=== PATIENT | male | born 1945 | race Two or more races ===

== ENCOUNTER 2019-10-10 08:21 | Inpatient (IN) | payer OTHER ==
[2019-10-10] VITALS (23 sets, daily range): BP systolic 93–127; BP diastolic 46–69
[~2019-10-10] VITALS: Ht 175.3 cm; Wt 88.4 kg
[2019-10-10 09:04] LABS: Basophils # (auto) 0 uL; Basophils % (auto) 0.6 % (0.0-2.0); Eosinophils # (auto) 0.1 uL; Eosinophils % (auto) 0.9 % (0.0-7.0); Hematocrit 31.9 % (41.0-53.0); Hemoglobin 10.2 g/dL (13.5-17.5); Lymphocytes % (auto) 15.7 % (10.0-50.0); Mean Corpuscular Hemoglobin 30.7 pg (28.0-32.0); Mean Corpuscular Volume 95.8 fL (80.0-100.0); Monocytes # (auto) 0.7 uL; Monocytes % (auto) 11.3 % (0.0-12.0); Neutrophils # (auto) 4.5 uL; Neutrophils % (auto) 71.5 % (37.0-80.0); Nucleated Red Blood Cells % 0.1 %; Platelet Count (auto) 143 10^3/uL (140-450); Red Blood Cells 3.33 10^6/uL (4.5-5.90); Red Cell Distribution Width 16.4 % (11.8-14.3); White Blood Cell 6.2 10^3/uL (4.4-10.8)
[2019-10-10] MEDS ORDERED: PIPERACILLIN-TAZOB 3.375GM 100 ML IV ONE (09:15)
[2019-10-10 09:18] LABS: INR 1.3 (0.9-1.15); Partial Thromboplastin Time 33.9 sec (23.64-32.05)
[2019-10-10] MEDS: NOREPINEPHRINE 8 MG/250ML KIT 250 ML IV SCH ×2 (09:18→17:46)
[2019-10-10 09:22] LABS: Albumin 2.7 g/dL (3.4-5.0); Anion Gap 10 (5-15); Blood Urea Nitrogen 21 mg/dL (7-18); Calcium 8.3 mg/dL (8.5-10.1); Carbon Dioxide 26 mmol/L (21-32); Chloride 104 mmol/L (98-107); Glucose 199 mg/dL (74-106); Potassium 3.8 mmol/L (3.5-5.1); Sodium 140 mmol/L (136-145)
[2019-10-10 09:28] LABS: Alanine Aminotransferase 17 U/L (16-61); Alkaline Phosphatase 163 U/L (45-117); Aspartate Aminotransferase 17 U/L (15-37); BUN/Creatinine Ratio 5.4; Bilirubin, Total 0.8 mg/dL (0.2-1.0); GFR African American 20 mL/min; GFR Non-African American 16 mL/min
[2019-10-10] MEDS ORDERED: ONDANSETRON HCL 4 MG/2 ML VIAL ONE (09:46)
[2019-10-10] MEDS ORDERED: ONDANSETRON HCL 4 MG/2 ML VIAL IV ONE (10:00)
[2019-10-10 10:39] LABS: Lactic Acid w/Reflex 5.1 mmol/L (0.4-2.0)
[2019-10-10] MEDS ORDERED: MORPHINE SULF INJ 2 MG/ML SYRINGE 1ML IV PRN ×2 (11:30)
[2019-10-10] MEDS ORDERED: NITROGLYCERIN 0.4 MG SL TAB SL PRN (11:30)
[2019-10-10] MEDS ORDERED: ACETAMINOPHEN 500 MG TAB PO PRN (11:30)
[2019-10-10] MEDS ORDERED: ONDANSETRON HCL 4 MG/2 ML VIAL IV PRN (11:30)
[2019-10-10] MEDS ORDERED: SODIUM CHLORIDE 0.9% 250 ML IV ONE (11:30)
[2019-10-10] MEDS ORDERED: HYDROcodone-ACET 5/325MG TAB PO PRN (11:30)
[2019-10-10] MEDS: cefTRIAXone 1GM/50ML D5W 50 ML IV SCH (12:08)
[2019-10-10] MEDS ORDERED: NALOXONE HCL 0.4 MG/ML VIAL ONE (13:20)
[2019-10-10] MEDS ORDERED: ETOMIDATE (2MG/ML) 20ML VIAL IV ONE ×2 (13:28→14:00)
[2019-10-10] MEDS ORDERED: SUCCINYLCHOLINE CHLORIDE 20 MG/ML 10ML VIAL IV ONE (13:29)
[2019-10-10] MEDS ORDERED: MIDAZOLAM DRIP 50 mg/50mL 50 ML IV ONE (13:30)
[2019-10-10] MEDS ORDERED: NALOXONE HCL 0.4 MG/ML VIAL IV ONE (13:30)
[2019-10-10] MEDS ORDERED: IOHEXOL 350 MG/ML 100ML IJ ONE (13:46)
[2019-10-10] MEDS ORDERED: LIDOCAINE 2%HCL (LOCAL ANESTH.) INJ 20ML MDV ONE (13:46)
[2019-10-10] MEDS ORDERED: ATROPINE SULF 1 MG/10ml SYR ONE (13:48)
[2019-10-10] MEDS ORDERED: HEPARIN SODIUM (PORCINE) 5000 UNITS/ML 1ML VIAL ONE (13:49)
[2019-10-10] MEDS ORDERED: MIDAZOLAM HCL 5 MG/ML-1ML VIAL IV ONE (14:00)
--- NOTE | 2019-10-10 14:00 | NUR ---
Respiratory note: ABG UN ABLE TO BE OBTAINED. MULTIPLE TRIES. SURGICAL INSTRUMENT MAKER SALBINO AWARE.
[2019-10-10] MEDS ORDERED: PHENYLEPHRINE HCL 10 MG/ML VL ONE (14:11)
[2019-10-10] MEDS ORDERED: IODIXANOL 320MG/ML 100ML BTL IV ONE (14:14)
[2019-10-10] MEDS: MIDAZOLAM DRIP 50 mg/50mL 50 ML IV SCH ×3 (14:24→22:55)
[2019-10-10] MEDS ORDERED: SODIUM CHL 0.9% 0 ML ONE (15:21)
[2019-10-10] MEDS ORDERED: ANGIOMAX 250 MG VIAL IV ONE (15:21)
[2019-10-10] MEDS ORDERED: NOREPINEPHRINE 8 MG/250ML KIT 0 ML IV ONE (15:21)
[2019-10-10] MEDS ORDERED: VANCOMYCIN PER PHARMACY 0 MG IV SCH (16:15)
[2019-10-10] MEDS ORDERED: VANCOMYCIN 1GM/250ML 250 ML IV ONE ×3 (16:30→17:15)
[2019-10-10] MEDS ORDERED: CLOPIDOGREL BISULFATE 75 MG TAB PO ONE (17:45)
--- NOTE | 2019-10-10 17:55 | NUR ---
RECEIVED PT FROM CONSUMER EXPERIENCE CONSULTANT S/P RT/ LT HEART CATH FOR PERICARDIAL EFFUSION. PT HAD 200 ML DRAINED AND NOW HAS A ENRIQUE DRAIN. 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 RT GROIN HEART CATH ACCESS SITE BENIGN, SOFT TO THE TOUCH NO BRUISING, BLEEDING OR SWELLING. BOTH FEET ARE COLD TO THE THE TOUCH FEET ARE ASHEN IN COLOR PULSES ARE WEAK BUT PALPABLE. PT CURRENTLY ON THE VENTILATOR, HE WILL BE CPAP IN AM PER Cynthia ALBERTO' S INSTRUCTION. PT CURRENTLY ON VERSED AT 12 MG/HR AND LEVOPHED IS A 5 MCG/MIN BEING TITRATED OFF. VENT 8.0 ETT AT 23 CM AT LIP AC 14 TV 550 PEEP 5 100% FIO2 95 %
[2019-10-10] MEDS: SODIUM CHLORIDE 0.9% 1,000 ML IV SCH (19:03)
[2019-10-10 19:24] LABS: Basophils # (auto) 0 uL; Eosinophils # (auto) 0 uL; Lymphocytes # (auto) 0.9 uL; Monocytes # (auto) 0.7 uL; Monocytes % (auto) 5.7 % (0.0-12.0); Nucleated Red Blood Cells % 0.2 %
[2019-10-10 19:25] LABS: Basophils % (auto) 0.3 % (0.0-2.0); Eosinophils % (auto) 0.2 % (0.0-7.0); Hemoglobin 10.3 g/dL (13.5-17.5); Mean Corpuscular Hemoglobin 30.4 pg (28.0-32.0); Mean Corpuscular Volume 97.9 fL (80.0-100.0); Neutrophils # (auto) 10.6 uL; Neutrophils % (auto) 86.8 % (37.0-80.0); Platelet Count (auto) 127 10^3/uL (140-450); Red Blood Cells 3.38 10^6/uL (4.5-5.90); Red Cell Distribution Width 16.8 % (11.8-14.3); White Blood Cell 12.2 10^3/uL (4.4-10.8)
--- NOTE | 2019-10-10 20:00 | NUR ---
OPEN NOTES RECEIVED REPORT FROM ALVERTO NELSON. PATIENT IS SEDATED WITH IV VERSED. PUPILS BOTH SLUGGISHLY REACTIVE TO LIGHT. HYPOACTIVE COUGH AND GAG NOTED. INTUBATED ON AC MODE. PLAN FOR CPAP IN AM. WILL WEAN OFF SEDATION. VS STABLE. ON IV LEVOPHED AT 5MCG/MIN. WITH PERICARDIAL DRAIN -BULB TO SUCTION WITH SANGUINEOUS OUTPUT. ALL LIMBS COLD,PULSES PALPABLE ON UPPER LIMBS, LOWER LIMBS CHECKED WITH DOPPLER. COVERED WITH WARM BLANKET. FULL ASSESSMENT DONE- REFER INTERVENTIONS REPOSITIONED, ORAL CARE DONE.
[2019-10-10 20:24] LABS: Potassium 4.3 mmol/L (3.5-5.1)
[2019-10-10 20:44] LABS: Albumin 2.3 g/dL (3.4-5.0); Calcium 7.6 mg/dL (8.5-10.1); Total Protein 6.1 g/dL (6.4-8.2)
--- NOTE | 2019-10-10 21:00 | NUR ---
FAMILY AT BEDSIDE
[2019-10-10] MEDS ORDERED: METO25TA5 PO (21:20)
[2019-10-10] MEDS ORDERED: CINA30TA2 PO (21:20)
[2019-10-10] MEDS ORDERED: NIFE1TAB31 PO (21:20)
[2019-10-10] MEDS ORDERED: FERR-7 PO (21:20)
[2019-10-10] MEDS ORDERED: ALLO100T PO (21:20)
[2019-10-10] MEDS ORDERED: CLOP75TA28 PO (21:20)
[2019-10-10] MEDS ORDERED: ATO40T PO (21:20)
[2019-10-10] MEDS ORDERED: AMIO100T3 OR (21:30)
[2019-10-10] MEDS ORDERED: ASPI-404 PO (21:30)
[2019-10-10] MEDS ORDERED: PANT40TA2 PO (21:58)
[2019-10-10 23:06] LABS: Phosphorus 5.5 mg/dL (2.5-4.90)
--- NOTE | 2019-10-10 23:07 | NUR ---
PATIENT STARTED TO MOVE UPPER LIMBS UP MITTENS APPLIED
[2019-10-10 23:15] LABS: CRP High Sensitivity 10.6 mg/dL (< 0.3)
[2019-10-11] VITALS (103 sets, daily range): BP systolic 73–143; BP diastolic 29–94
--- NOTE | 2019-10-11 05:00 | NUR ---
Patient bathe/linen change Patient cleaned with CHG wipes. Skin integrity assessed for any changes. Linens changed. Patient repositioned for comfort.
[2019-10-11 05:08] LABS: Basophils # (auto) 0.1 uL; Basophils % (auto) 0.6 % (0.0-2.0); Eosinophils # (auto) 0.1 uL; Eosinophils % (auto) 1.3 % (0.0-7.0); Hematocrit 27.6 % (41.0-53.0); Hemoglobin 8.9 g/dL (13.5-17.5); Lymphocytes # (auto) 0.6 uL; Lymphocytes % (auto) 7.8 % (10.0-50.0); Mean Corpuscular Hemoglobin 31.1 pg (28.0-32.0); Mean Corpuscular Hgb Conc. 32.3 g/dL (32.0-36.0); Mean Corpuscular Volume 96.2 fL (80.0-100.0); Monocytes # (auto) 0.2 uL; Monocytes % (auto) 2.5 % (0.0-12.0); Neutrophils # (auto) 7.1 uL; Neutrophils % (auto) 87.8 % (37.0-80.0); Nucleated Red Blood Cells % 0.3 %; Platelet Count (auto) 103 10^3/uL (140-450); Red Blood Cells 2.87 10^6/uL (4.5-5.90); Red Cell Distribution Width 16.8 % (11.8-14.3); White Blood Cell 8.1 10^3/uL (4.4-10.8)
[2019-10-11 05:26] LABS: INR 1.98 (0.9-1.15); Partial Thromboplastin Time 37.4 sec (23.64-32.05)
[2019-10-11 05:43] LABS: BUN/Creatinine Ratio 6.6; Calcium 6.3 mg/dL (8.5-10.1); Potassium 3.3 mmol/L (3.5-5.1)
--- NOTE | 2019-10-11 06:29 | NUR ---
SCOTT CALLED BACK TALKED TO DR. BEVERLY.INFORMED OF LAB RESULTS TELEPHONE ORDER RECEIVED AND VERIFIED
[2019-10-11] MEDS ORDERED: CALCIUM GLUC 4.65meq/50ml D5AE 50 ML IV ONE (06:30)
[2019-10-11] MEDS ORDERED: SODIUM CHL 0.9% 1000 ML BAG XX ONE (07:00)
--- NOTE | 2019-10-11 07:25 | NUR ---
OPENING NOTE Initial assessment complete. Report received from Tracey DEL TORO, care assumed. Patient is intubated. Sedation has been weaned off for cpap trial. Patient not opening eyes or moving extremities at this time. No s/s of pain or distress at this time. Afebrile. Vital signs stable. Pulses palpable bilaterally, SCD's on bilateral lower extremities. Lungs clear anteriorly, oxygen saturation 100%. Pericardial drain patent, dressing CDI. See skin/wound assessment. Bed locked in lowest position, alarms in place. Will continue to monitor.
[2019-10-11] MEDS: cefTRIAXone 1GM/50ML D5W 50 ML IV SCH (08:34)
[2019-10-11] MEDS ORDERED: CALCITRIOL 1 MCG/ML AMPULE IV SCH (10:00)
--- NOTE | 2019-10-11 10:15 | NUR ---
VISITOR Patient and son at bedside. Family updated on patient status and plan of care.
[2019-10-11] MEDS: FAMOTIDINE 20 MG TAB PO SCH (10:27)
[2019-10-11] MEDS: CLOPIDOGREL BISULFATE 75 MG TAB PO SCH (10:28)
[2019-10-11] MEDS: ASPirin 81 mg TAB PO SCH (10:28)
--- NOTE | 2019-10-11 10:50 | NUR ---
MD VISIT:PCP at bedside assessing patient and speaking with regarding plan of care. All questions and concerns addressed. Awaiting for patient to wake up and follow commands before attempting cpap trial today.
--- NOTE | 2019-10-11 11:03 | NUR ---
[facility] it infrastructure manager called to confirm orders. Clarifying that patient is on the schedule for treatment today.
[2019-10-11] MEDS ORDERED: POTASSIUM CHL 20MEQ/100ML 100 ML IV SCH (11:30)
--- NOTE | 2019-10-11 11:33 | NUR ---
MD VISIT: NEPHROLOGY rounding on patient. MD reviewing medical chart. Electrolyte replacement orders received.
[2019-10-11] MEDS ORDERED: POTASSIUM CHLORIDE 40 MEQ, LIDOCAINE 1% (LOCAL ANESTH.) 4 ML in SODIUM CHL 0.9% 100 ML IV ONE (11:45)
[2019-10-11] MEDS: SODIUM CHLORIDE 0.9% 1,000 ML IV SCH (13:30)
[2019-10-11] MEDS ORDERED: VANCOMYCIN 1GM/250ML 250 ML IV ONE ×2 (14:00→18:30)
[2019-10-11] MEDS: PROPOFOL 100 ML IV SCH (14:48)
[2019-10-11] MEDS: fentaNYL Drip 2500mCg/250mlNS 250 ML IV SCH (14:48)
--- NOTE | 2019-10-11 15:40 | NUR ---
DIALYSIS Dialysis nurse at bedside. Vitals stable. Patient on levophed drip at this time.
--- NOTE | 2019-10-11 15:50 | NUR ---
MD VISIT: PCP Dr. Starks at bedside assessing patient. MD reviewing medical chart. New orders received. spoke with regarding plan of care.
[2019-10-11] MEDS ORDERED: PHYTONADIONE (VIT K)10 MG/ML 1ML VIAL SUBCUT ONE (16:00)
[2019-10-11] MEDS ORDERED: phytonadione 10 MG in SODIUM CHL 0.9% 50 ML IV ONE (16:15)
--- NOTE | 2019-10-11 16:21 | NUR ---
MD VISIT: CARDIOLOGY at bedside assessing patient, assessing pericardial drainage output. No new orders at this time. MD wants to monitor output from drain over the next couple of days.
--- NOTE | 2019-10-11 17:15 | NUR ---
PT IS RECEIVING DIALYSIS. ATTEMPT P.T. TOMORROW.
--- NOTE | 2019-10-11 18:05 | NUR ---
Respiratory note: RECEIVED PT ON VENT V4, VENT CONNECTED TO RED OUTLET AND O2 SOURCE. ALARMS ARE SET AND AUDIBLE TO NURSE STATION,AMBU BAG AND MASK AT BEDSIDE. BS ARE FINE COURSE SXD FOR SCANT JOYCE/BROWN TINGE. PT CURRENTLY ON DIALYSIS. RT NAME AND PAGER ASSIGNMENT WRITTEN ON PTS ROOM BOARD. WILL CONTINUE TO MONITOR Q2H AND PRN.
--- NOTE | 2019-10-11 18:40 | NUR ---
DIALYSIS DIALYSIS COMPLETE 1.5 L REMOVED. Right upper arm access continuing to bleed. Surgical snow, gauze, and manual pressure held for 5 minutes. Bleeding subsided. Pressure dressing applied. Will continue to monitor.
[2019-10-11] MEDS: NOREPINEPHRINE 8 MG/250ML KIT 250 ML IV SCH (18:41)
--- NOTE | 2019-10-11 19:30 | NUR ---
CLOSING NOTE Report given to Hailey DEL TORO, care endorsed.
--- NOTE | 2019-10-11 19:31 | NUR ---
PHARMACY Spoke to pharmacist earlier regarding change and addition of Zosyn and Fluconazole per 's request. Pharmacist wanted to research more into medications. Did not receive call back. Attempt to reach pharmacist but no answer. Will endorse to oven roaster.
--- NOTE | 2019-10-11 20:00 | NUR ---
PHARMACY DID NOT CALL BACK. PATIENT ADMITTED ON 10/10/2019. WAS HYPOTENSIVE. CAME FROM DIALYSIS UNIT. AT 1900 THEY HAD JUST TAKEN HIM OFF DIALYSIS. REMOVED 1500 CC. 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 TROUBLE WITH BLEEDING . SNOW APPLIED TO SITE, PRESSURE HELD, 4X4 DRESSING OVER IT, SECURED WITH TAPE. MARGOT. HAS WHITE RINGS AROUND THE PERIPHERY OF EACH EYE. ORALLY INTUBATED. ETT TO VENTILATOR. ORAL NGT CLAMPED, NO RESIDUAL. ORAL CARE DONE. SUCTIONED THE ETT FOR A SMALL AMOUNT OF WHITE SECRETIONS. ABDOMEN SOFT. HAS A PIGTAIL DRAIN FROM AN INSERTION POINT ON HIS CHEST. NO DRNG. SITE HAS A BIOPATCH AND CLEAR DRESSING OVER IT. BILATERALL MITTENS ON. REPOSITIONED TO LEFT SIDE AT 1930. BUTTOCKS/SACRAL AREA SHOWS NO BREAKDOWN OR REDNESS. SCDS ON. NSR, BORDERLINE AV BLOCK WITH BBB.
--- NOTE | 2019-10-11 20:03 | NUR ---
Respiratory note: At bedside for routine vent check. HME saturated, changed at this time. No changes made at this time. Will continue to monitor q2. ALVERTO Gibbons at bedside.
[2019-10-11] MEDS ORDERED: EPOETIN ALFA 10,000 UNIT/1 ML VIAL SC ONE (21:00)
--- NOTE | 2019-10-11 21:50 | NUR ---
Respiratory note: At bedside for routine vent check. Will continue to monitor q2h.
[2019-10-12] VITALS (102 sets, daily range): BP systolic 74–157; BP diastolic 8–87
--- NOTE | 2019-10-12 | NUR ---
NO VENTILATOR CHANGES. LUNGS CLEAR. NSR WITH BORDERLINE 1ST DEGREE AV BLOCK AND BBB. SUCTIONING A GOOD MODERATE AMOUNT OF THICK WHITE SECRETIONS. LARGE AMOUNT OF CLEAR ORAL SECRETIONS. ABDOMEN SOFT. NO NGT RESIDUAL. BILATERAL MITTENS ON. HAS NOT WOKEN UP YET. WITHDRAWS TO PAIN. PREVENTATIVE OPTIFOAM PLACED ON COCCYX. 2 PERIPHERAL IVS SHOW NO REDNESS OR SWELLING.
--- NOTE | 2019-10-12 00:04 | NUR ---
Respiratory note: At bedside for routine vent check. Bs are fine course sxd via ett for no return. will continue to monitor q2h.
--- NOTE | 2019-10-12 02:00 | NUR ---
NO CHANGE IN STATUS. VSS. LEVOPHED CONTINUES. LABILE BLOOD PRESSURE. LUNGS CLEAR. SUCTIONED A LARGE AMOUNT OF CLEAR SECRETIONS FROM THE ORAL CAVITY. WHITE SECRETIONS FROM THE ETT. ANURIC STILL. ALL PULSES PALPABLE. TIPS OF FEET COOL. DRY SKIN.
--- NOTE | 2019-10-12 02:35 | NUR ---
Respiratory note: At bedside for routine vent check. No vent changes made at this time. Will continue to monitor q2h.
--- NOTE | 2019-10-12 03:31 | NUR ---
AM LABS DRAWN
[2019-10-12 03:54] LABS: Basophils # (auto) 0.1 uL; Basophils % (auto) 1.1 % (0.0-2.0); Eosinophils # (auto) 0.1 uL; Eosinophils % (auto) 1.6 % (0.0-7.0); Hematocrit 31.5 % (41.0-53.0); Hemoglobin 10.2 g/dL (13.5-17.5); Lymphocytes # (auto) 0.5 uL; Mean Corpuscular Hemoglobin 30.4 pg (28.0-32.0); Mean Corpuscular Hgb Conc. 32.6 g/dL (32.0-36.0); Mean Corpuscular Volume 93.5 fL (80.0-100.0); Monocytes # (auto) 0.3 uL; Monocytes % (auto) 4.4 % (0.0-12.0); Neutrophils # (auto) 4.9 uL; Neutrophils % (auto) 84.9 % (37.0-80.0); Nucleated Red Blood Cells % 0.2 %; Platelet Count (auto) 140 10^3/uL (140-450); Red Blood Cells 3.37 10^6/uL (4.5-5.90); Red Cell Distribution Width 16.5 % (11.8-14.3); White Blood Cell 5.8 10^3/uL (4.4-10.8)
--- NOTE | 2019-10-12 04:08 | NUR ---
Respiratory note: END OF SHIFT VENT CHECK. NO CHANGES MADE AT THIS TIME. PTS CURRENT TEMP IS 98.2F. WILL HAVE DAY SHIFT RT CONTINUE POC.
[2019-10-12 04:09] LABS: INR 1.68 (0.9-1.15)
[2019-10-12 04:11] LABS: Albumin 2.2 g/dL (3.4-5.0); Calcium 8.2 mg/dL (8.5-10.1); Potassium 3.8 mmol/L (3.5-5.1)
[2019-10-12 04:20] LABS: BUN/Creatinine Ratio 5.4; Bilirubin, Total 1.2 mg/dL (0.2-1.0); Total Protein 5.8 g/dL (6.4-8.2)
--- NOTE | 2019-10-12 06:35 | NUR ---
Respiratory note: RECEIVED PATIENT ON V4 V200 VENT ORALLY INTUBATED WITH AN 8.0 ETT SECURED VIA ELIAS AT THE 24CM MARKING AT THE LIP, NAD MECHANICALLY VENTILATED WITH THE CHARTED SETTINGS. SPO2 98%, LUNG SOUNDS CLEAR/DIM T/O, SCANT AMOUNT OF LIGHT JOYCE SECRETIONS WHEN SUCTIONED. SKIN IS WARM/DRY TO THE TOUCH AND IS INTACT NEAR ELIAS SITE. THERE IS AN OGT IN PLACE AND SECURED TO THE ETT, A LARGE DRESSING PLACED ON THE RIGHT BICEP COVERING DIALYSIS FISTULA. NO ADVANCE ACCESS LINES NOTED. NON PITTING EDEMA NOTED IN BILATERAL UPPER EXTREMITIES, NO EDEMA NOTED IN LOWER EXTREMITIES. PATIENT IS UNRESPONSIVE TO VERBAL STIMULI BUT DOES RESPOND TO TACTILE STIMULI AND IS OFF SEDATION. HE IS RESTING COMFORTABLY AND TOLERATING VENT WELL, NO CHANGES MADE. VENT PLUGGED INTO RED OUTLET AND ALL ALARMS ARE SET AND AUDIBLE. VENT PLUGGED INTO RED OUTLET AND ALL ALARMS ARE SET AND AUDIBLE. WILL CONTINUE TO ASSESS PATIENT WELL VENTILATOR FUNCTION.
[2019-10-12] MEDS: SODIUM CHLORIDE 0.9% 1,000 ML IV SCH (07:47)
[2019-10-12] MEDS: cefTRIAXone 1GM/50ML D5W 50 ML IV SCH (09:25)
[2019-10-12] MEDS: ASPirin 81 mg TAB PO SCH (09:25)
[2019-10-12] MEDS: FAMOTIDINE 20 MG TAB PO SCH (09:25)
[2019-10-12] MEDS: CLOPIDOGREL BISULFATE 75 MG TAB PO SCH (09:25)
[2019-10-12] MEDS: DexMEDEtomidine 400 MCG in D5W 5% 96 ML IV SCH (09:26)
--- NOTE | 2019-10-12 09:35 | NUR ---
Respiratory note: AM CXR ASSESSED AND IT SHOWS ETT IN SATISFACTORY POSITION SITTING APPROX 4.8CM ABOVE THE YOLY. NO INDICATION TO ADJUST TUBE AT THIS TIME.
--- NOTE | 2019-10-12 09:35 | NUR ---
PARTIAL LINEN CHANGE PERFORMED AT THIS TIME
--- NOTE | 2019-10-12 09:59 | NUR ---
FAMILY AND SON AT BEDSIDE. UPDATED ON PATIENT STATUS. ALL QUESTIONS AND CONCERNS ADDRESSED AT THIS TIME
--- NOTE | 2019-10-12 11:00 | NUR ---
WOUND CARE NOTE: IN TO SEE PATIENT AT THIS TIME PER WOUND CARE CONSULT REQUEST. PATIENT ADMITTED TO [facility] WITH DIAGNOSIS OF SEPSIS, PNA. CURRENT JUAN SCORE IS 12. PATIENT IS INTUBATED, SEDATED. HE HAS TWO SMALL OPEN BLISTERS NOTED TO LEFT FLANK. APPLIED THERAHONEY, OPTIFOAM GENTLE DRESSING TO WOUNDS. WOUND PHOTO TAKEN AT THIS TIME FOR REFERENCE. PATIENT'S BONY PROMINENCES ARE PINK, BLANCHABLE. HE HAS OPTIFOAM GENTLE SACRAL DRESSING APPLIED PREVENTATIVE. PATIENT REPOSITIONED ONTO RIGHT SIDE, REDISTRIBUTING PRESSURE POINTS WITH PILLOWS. RECOMMEND: FREQUENT TURN SCHEDULE Q 2 HOURS, PRN CONDITION PERMITS, WITH PRESSURE REDISTRIBUTION USING PILLOWS/WEDGES, BID/PRN APPLICATION WITH MOISTURE BARRIER CREAM, OPTIFOAM GENTLE SACRAL DRESSING PREVENTATIVE, Q 3 DAY, PRN DRESSING CHANGE TO WOUNDS ON LEFT FLANK, SKIN/WOUND CARE PLAN, CONTINUED MONITORING BY WOUND CARE TEAM. Addendum: 10/12/19 at 1317 by Malathi Casillas RN Amended: Links added.
--- NOTE | 2019-10-12 11:04 | NUR ---
DR. PAYNE AT BEDSIDE
--- NOTE | 2019-10-12 11:05 | NUR ---
DR. BREWSTER AT BEDSIDE
--- NOTE | 2019-10-12 11:29 | NUR ---
ULTRASOUND AT BEDSIDE
--- NOTE | 2019-10-12 13:46 | NUR ---
Nutrition Assessment Notes Est energy needs: 2223-1804 kcals (20-23 kcals/kgBW) Est protein needs: 104-114 g/day (1.1-1.2 g/kgBW) Will continue to monitor and reassess prn Addendum: 10/12/19 at [address] Amended: Links added.
--- NOTE | 2019-10-12 13:48 | NUR ---
DR. SANFORD AT BEDSIDE TO PLACE FEMORAL CENTRAL LINE
[2019-10-12] MEDS: fentaNYL Drip 2500mCg/250mlNS 250 ML IV SCH (14:48)
[2019-10-12] MEDS: PROPOFOL 100 ML IV SCH (14:48)
--- NOTE | 2019-10-12 16:26 | NUR ---
FAMILY BACK AT BEDSIDE. UPDATED ON PATIENT STATUS
--- NOTE | 2019-10-12 16:56 | NUR ---
PARTIAL LINEN CHANGE PERFORMED AT THIS TIME
--- NOTE | 2019-10-12 16:57 | NUR ---
MEDICAL RESTRAINTS SOFT RESTRAINTS APPLIED TO UPPER LEFT AND UPPER RIGHT EXTREMITIES. PATIENT ON MECHANICAL VENTILATOR, NO SEDATION PER MD SO PATIENT CAN HAVE CPAP TRIAL. PATIENT TRASHING IN BED, ROLLING FROM SIDE TO SIDE AND REACHING FOR ET TUBE. PATIENT DOES NOT FOLLOW SIMPLE COMMANDS AT THIS TIME. TAHIR AT BEDSIDE AWARE SOFT RESTRAINTS AND NEED FOR PATIENT SAFETY. ALL QUESTIONS AND CONCERNS ADDRESSED AT THIS TIME
--- NOTE | 2019-10-12 20:00 | NUR ---
OPEN ASSUMED CARE OF MALE PT ORALLY INTUBATED. PT ON PRECEDEX GTT 0.1 MCG/KG/HR. PT ATTEMPTS TO REACH ETT ATTEMPT TO SIT FORWARD OUT OF THE BED DURING ORAL CARE AND TURNING. PT NOT ABLE TO FOLLOW COMMANDS AT THIS TIME. WILL INCREASE PRECEDEX GTT (SEE IV SPREADSHEET). PT ON MINAL SOFT WRIST RESTRAINTS. CIRCULATION WNL SKIN INTACT. PT SR ON SHEEP HERDER WITH 1 DEGREE AV BLOCK AND BBB. LEVOPHED GTT IN PLACE TO R. FEMORAL TLC AT 5 MCG/MIN. NS INFUSING AT 50 L/HR. OGT IN PLACE CLAMPED. PLACEMENT VERIFIED. ARIADNE FISTULA PRESENT WITH POSITIVE BRUIT AND THRILL. L. AC [address] S/L. PERICARDIAL DRAIN IN PLACE WITH INSERTION SITE AT ANT. UPPER ABDOMEN. DRAINING SML AMOUNT OF SEROUS SANGUINEOUS DRAINAGE INTO ENRIQUE BULB. 2 SML NON INTACT BLISTERS OBSERVED TO L. FLANK AREA WITH CDI OPTIFOAM NON ADHERENT DRESSING. NO INDICATION OF PAIN OBSERVED. BED IN LOWEST LOCKED POSITION. HOB ELEVATED. SIDE RAILS UP X 2. PT IN FULL VIEW OF RN STATION. WILL CONTINUE TO MONITOR.
--- NOTE | 2019-10-12 22:00 | NUR ---
CIRCULATION CHECK/RESTRAINTS MINAL SOFT WRIST RESTRAINTS LOOSENED TO PROVIDE CIRCULATION. PT STILL ATTEMPTING TO REACH TOWARD ETT. RESTRAINTS RE-SECURED. PT STILL UNABLE TO FOLLOW COMMANDS.
[2019-10-13] VITALS (102 sets, daily range): BP systolic 81–174; BP diastolic 41–78
[2019-10-13 04:29] LABS: Basophils # (auto) 0.1 uL; Basophils % (auto) 1.3 % (0.0-2.0); Eosinophils # (auto) 0.1 uL; Eosinophils % (auto) 3.6 % (0.0-7.0); Hematocrit 28.8 % (41.0-53.0); Hemoglobin 9.4 g/dL (13.5-17.5); Lymphocytes # (auto) 0.5 uL; Lymphocytes % (auto) 13.2 % (10.0-50.0); Mean Corpuscular Hemoglobin 30.5 pg (28.0-32.0); Mean Corpuscular Hgb Conc. 32.7 g/dL (32.0-36.0); Mean Corpuscular Volume 93.3 fL (80.0-100.0); Monocytes # (auto) 0.3 uL; Monocytes % (auto) 6.6 % (0.0-12.0); Neutrophils % (auto) 75.3 % (37.0-80.0); Nucleated Red Blood Cells % 0.2 %; Platelet Count (auto) 113 10^3/uL (140-450); Red Blood Cells 3.08 10^6/uL (4.5-5.90); Red Cell Distribution Width 16.1 % (11.8-14.3)
[2019-10-13 04:46] LABS: Albumin 2.1 g/dL (3.4-5.0); Calcium 8.3 mg/dL (8.5-10.1); Potassium 3.9 mmol/L (3.5-5.1)
[2019-10-13 04:56] LABS: BUN/Creatinine Ratio 6.2; Bilirubin, Total 1.3 mg/dL (0.2-1.0); Total Protein 5.6 g/dL (6.4-8.2)
[2019-10-13] MEDS: SODIUM CHLORIDE 0.9% 1,000 ML IV SCH (05:30)
[2019-10-13] MEDS: DexMEDEtomidine 400 MCG in D5W 5% 96 ML IV SCH (05:42)
--- NOTE | 2019-10-13 06:34 | NUR ---
VAN RN CALLED UNIT See DEL TORO FROM [facility] CALLED. STATES SHE WILL BE ON UNIT TO PROVIDE DIALYSIS AT APPROX 09:30
--- NOTE | 2019-10-13 08:01 | NUR ---
TEMPERATURE 94.6 RECTALLY HEATING MEASURES APPLIED
--- NOTE | 2019-10-13 08:15 | NUR ---
Respiratory note: PT NOT AWAKE ENOUGH FOR CPAP TRIAL.
[2019-10-13] MEDS: cefTRIAXone 1GM/50ML D5W 50 ML IV SCH (08:23)
[2019-10-13] MEDS: NOREPINEPHRINE 8 MG/250ML KIT 250 ML IV SCH (09:02)
--- NOTE | 2019-10-13 09:05 | NUR ---
ECHO AT BEDSIDE
[2019-10-13] MEDS: CALCITRIOL 1 MCG/ML AMPULE IV SCH (09:23)
[2019-10-13] MEDS: FAMOTIDINE 20 MG TAB PO SCH (09:23)
[2019-10-13] MEDS: CLOPIDOGREL BISULFATE 75 MG TAB PO SCH (09:23)
[2019-10-13] MEDS: ASPirin 81 mg TAB PO SCH (09:23)
--- NOTE | 2019-10-13 10:03 | NUR ---
FAMILY AND BROTHER AT BEDSIDE. UPDATED ON PATIENT STATUS. ALL QUESTIONS AND CONCERNS ADDRESSED AT THIS TIME
--- NOTE | 2019-10-13 10:13 | NUR ---
DR. BREWSTER AT BEDSIDE SPOKE WITH WITH IN GREAT DETAIL REGARDING PATIENT STATUS AND PLAN OF CARE. ALL QUESTIONS AND CONCERNS ADDRESSED AT THIS TIME
--- NOTE | 2019-10-13 10:44 | NUR ---
DR. PAYNE AT BEDSIDE
--- NOTE | 2019-10-13 13:01 | NUR ---
DR. ROJAS AT BEDSIDE
--- NOTE | 2019-10-13 13:18 | NUR ---
TEMP 100.0 FAN TURNED ON TO COOL PATIENT
--- NOTE | 2019-10-13 13:50 | NUR ---
RESTRAINTS REMOVED PATIENT ON SEDATION FOR COMFORT. WRIST SITES BENIGN, MITTENS APPLIED FOR SAFETY
[2019-10-13] MEDS: fentaNYL Drip 2500mCg/250mlNS 250 ML IV SCH (14:48)
[2019-10-13] MEDS: PROPOFOL 100 ML IV SCH ×2 (14:48→22:54)
[2019-10-13] MEDS ORDERED: VANCOMYCIN 1GM/250ML 250 ML IV ONE (16:00)
[2019-10-13] MEDS ORDERED: Nepro With Carb Steady 1 Liter Bottle GT SCH (16:30)
--- NOTE | 2019-10-13 20:00 | NUR ---
OPEN ASSUMED CARE OF MALE PT ORALLY INTUBATED. PT ON PROPOFOL GTT 20 MCG/KG/MIN. PT GRIMACES TO TACTILE STIMULI, WITHDRAWS TO PAIN. OTHERWISE NON RESPONSIVE. PT SINUS BRADYCARDIA ON SUPERVISOR GROVE WITH 1 DEGREE AV BLOCK AND BBB. LEVOPHED GTT IN PLACE TO R. FEMORAL TLC AT 3 MCG/MIN. NS INFUSING AT 50 L/HR. OGT IN PLACE WITH NEPHRO FEEDING INFUSING AT 30 ML/HR. 10 ML RESIDUAL ASPIRATED/RETURNED. PLACEMENT VERIFIED. ARIADNE FISTULA PRESENT WITH POSITIVE BRUIT AND THRILL. L. AC [address] S/L. PERICARDIAL DRAIN IN PLACE WITH INSERTION SITE AT ANT. UPPER ABDOMEN. DRAINING SML AMOUNT OF SEROUS SANGUINEOUS DRAINAGE INTO ENRIQUE BULB. 2 SML NON INTACT BLISTERS OBSERVED TO L. FLANK AREA WITH CDI OPTIFOAM NON ADHERENT DRESSING. NO INDICATION OF PAIN OBSERVED. BED IN LOWEST LOCKED POSITION. HOB ELEVATED. SIDE RAILS UP X 2. PT IN FULL VIEW OF RN STATION. WILL CONTINUE TO MONITOR.
[2019-10-14] VITALS (102 sets, daily range): BP systolic 88–148; BP diastolic 44–70
--- NOTE | 2019-10-14 02:30 | NUR ---
Patient bathe/linen change Patient given complete bath. Skin integrity assessed for any changes. Linens changed. Patient repositioned for comfort.
[2019-10-14] MEDS: DexMEDEtomidine 400 MCG in D5W 5% 96 ML IV SCH ×2 (02:47→23:52)
[2019-10-14 04:27] LABS: Basophils # (auto) 0 uL; Eosinophils # (auto) 0.2 uL; Eosinophils % (auto) 3.9 % (0.0-7.0); Hemoglobin 9.8 g/dL (13.5-17.5); Lymphocytes # (auto) 0.4 uL; Lymphocytes % (auto) 9.5 % (10.0-50.0); Mean Corpuscular Hemoglobin 31.3 pg (28.0-32.0); Mean Corpuscular Hgb Conc. 33.9 g/dL (32.0-36.0); Mean Corpuscular Volume 92.5 fL (80.0-100.0); Monocytes # (auto) 0.4 uL; Monocytes % (auto) 8.8 % (0.0-12.0); Neutrophils # (auto) 3.5 uL; Neutrophils % (auto) 76.8 % (37.0-80.0); Nucleated Red Blood Cells % 0.1 %; Platelet Count (auto) 113 10^3/uL (140-450); Red Blood Cells 3.13 10^6/uL (4.5-5.90); Red Cell Distribution Width 16.5 % (11.8-14.3); White Blood Cell 4.6 10^3/uL (4.4-10.8)
[2019-10-14 04:34] LABS: BUN/Creatinine Ratio 6.7; Calcium 7.7 mg/dL (8.5-10.1); Potassium 4.2 mmol/L (3.5-5.1)
[2019-10-14 04:42] LABS: Bilirubin, Total 0.9 mg/dL (0.2-1.0); Total Protein 5.6 g/dL (6.4-8.2)
[2019-10-14] MEDS: SODIUM CHLORIDE 0.9% 1,000 ML IV SCH ×2 (06:00→21:30)
--- NOTE | 2019-10-14 06:30 | NUR ---
FAMILY CALL PT'S TAHIR CALLED UNIT FOR UPDATE ON PT CONDITION THROUGH THE NIGHT. AFTER PASSWORD FOR PHONE GIVEN. UPDATE PROVIDED. ALL QUESTIONS AND CONCERNS ADDRESSED.
--- NOTE | 2019-10-14 07:15 | NUR ---
PIPE COVERER AND INSULATOR AT BEDSIDE
--- NOTE | 2019-10-14 08:05 | NUR ---
OPENING Report received from Arlin DEL TORO. Care initiated and initial assessment completed.
--- NOTE | 2019-10-14 08:59 | NUR ---
DIALYSIS ONGOING Vital signs are stable at this time.
--- NOTE | 2019-10-14 10:24 | NUR ---
DIALYSIS COMPLETE 2L removed. Dialysis nurse finishing fistula care bedside.
[2019-10-14] MEDS: cefTRIAXone 1GM/50ML D5W 50 ML IV SCH (11:27)
[2019-10-14] MEDS: FAMOTIDINE 20 MG TAB PO SCH (11:28)
[2019-10-14] MEDS: ASPirin 81 mg TAB PO SCH (11:29)
[2019-10-14] MEDS: CLOPIDOGREL BISULFATE 75 MG TAB PO SCH (11:29)
[2019-10-14] MEDS: NOREPINEPHRINE 8 MG/250ML KIT 250 ML IV SCH (11:30)
--- NOTE | 2019-10-14 12:25 | NUR ---
PT UNSTABLE FOR TRANSPORT TO CT AT THIS TIME PER LOVE DEL TORO
[2019-10-14] MEDS: fentaNYL Drip 2500mCg/250mlNS 250 ML IV SCH ×2 (14:48→17:55)
--- NOTE | 2019-10-14 15:21 | NUR ---
assessment Patient is a 74 year old male who is on a vent. No family at bedside. I called and left a message for patients Carrie to return my call for assessment. Waiting motion pictures cartoonist back now. Addendum: 10/14/19 at 1526 by Bertha MOHAN Amended: Links added.
--- NOTE | 2019-10-14 15:44 | NUR ---
TRANSPORTING Patient is being transported to CT with [employer] transportation sales consultant and RT Marlene. Portable monitor and vent attached.
--- NOTE | 2019-10-14 15:50 | NUR ---
Respiratory note: PT TRANSPORTED TO CT ON TRANSPORT VENT, WITHOUT INCIDENT. RETURNED TO ROOM, AND PLACED BACK ON BEDSIDE VENT. RN, AND TECH AT BEDSIDE FOR TRANSPORT. PT TOLERATED TRANSPORT WELL.
--- NOTE | 2019-10-14 18:20 | NUR ---
PARTIAL LINEN CHANGE Partial linen change completed at this time. Patient tolerated well.
--- NOTE | 2019-10-14 19:45 | NUR ---
LEVOPHED GTT TURNED OFF - SBP 130s, MAP 85
--- NOTE | 2019-10-14 19:45 | NUR ---
OPENING NOTE: INTUBATED AND SEDATED. DOES NOT OPEN EYES NOR TRACK NOR FOLLOW COMMANDS. DOES GRIMACE AND WITHDRAW TO DEEP PAINFUL STIMULI. PUPILS 4+ BRISK. NSR WITH 1 DEGREE AVB, AND BBB, HR 80s. SBP 130s, INITIALLY RECEIVED ON LEVO GTT, BUT TURNED GTT OFF, PERICARDIAL DRAIN TO BULB SUCTION, ONLY OUTPUT IN TUBING. 8.0 ETT, 24 AT THE LIP. LS COARSE THROUGHOUT, CREAMY PINK TINGED SECRETIONS VIA ORAL AND ETT. EVEN AND UNLABORED BREATHING, SpO2>95% ON CURRENT VENT SETTINGS. ABD SOFT, HYPOACTIVE BS. LAST DOCUMENTED BM 10/10. OGT + AIR BOLUS, RUNNING NEPRO AT 35 ML/HR, MINIMAL RESIDUALS. ANURIC. RIGHT GROIN CVC, DRESSING BLOODY, BUT PATENT WITH BLOOD RETURN. LEFT AC 18 G PIV, CDI, AND PATENT WITH BLOOD RETURN. SEE WOUND AND SKIN FLOWSHEET FOR ASSESSMENT. BILATERAL LOWER EXTREMITIES HYPERPIGMENTED WITH WEAK PULSES. RIGHT UPPER ARM AVF, +BRUIT AND THRILL, 1-2+ NON-PITTING EDEMA. REINFORCED POC. MAINTAINED PATIENT SAFETY: BED LOCKED AND IN THE LOWEST POSITION, FREQUENT VISUAL CHECKS. HOB >30 DEGREES. SOFT MITTENS PLACED BILATERALLY FOR SAFETY. SCDs ON BILATERAL LOWER EXTREMITIES. NO FAMILY PRESENT AT THIS TIME. WILL CONT CARE
--- NOTE | 2019-10-14 20:03 | NUR ---
GASTRIC RESIDUAL < 10 ML - INCREASED TF RATE TO 45 ML/HR
--- NOTE | 2019-10-14 21:00 | NUR ---
SEDATION VACATION - UNABLE TO COMPLETE: PATIENT KNOWN TO BE AGGRESSIVE AND AGITATED OFF OF SEDATION,. Addendum: 10/14/19 at 2201 by Kiki Garcia RN RN Amended: Links added.
--- NOTE | 2019-10-14 22:06 | NUR ---
GASTRIC RESIDUAL < 10 ML - CONTINUE TF 45 ML/HR - PLAN FOR CPAP TRIAL IN AM
[2019-10-15] VITALS (104 sets, daily range): BP systolic 86–139; BP diastolic 46–75
--- NOTE | 2019-10-15 00:01 | NUR ---
GASTRIC RESIDUAL < 10 ML - TF CONTINUED AT 45 ML/HR
--- NOTE | 2019-10-15 01:00 | NUR ---
TF STOPPED FOR ANTICIPATED CPAP TRIAL
--- NOTE | 2019-10-15 02:00 | NUR ---
BED BATH WITH CHG WIPES, KAMRYN CARE, ORAL CARE, AND FULL LINEN CHANGE COMPLETED
--- NOTE | 2019-10-15 02:13 | NUR ---
RIGHT GROIN CVC CHANGED VIA STERILE TECHNIQUE: PATIENT TOLERATED WELL
--- NOTE | 2019-10-15 02:14 | NUR ---
WOUND CARE: LEFT FLANK POPPED BLISTERS X2: REMOVED PREVIOUS DRESSING, MINIMAL SEROUS DRAINAGE. CLEANSED WITH SOAP AND WATER. PAT DRY WITH STERILE GAUZE. APPLIED THERAHONEY AND COVERED WITH GENTLE OPTIFOAM
[2019-10-15] MEDS: PROPOFOL 100 ML IV SCH (03:36)
[2019-10-15 04:00] LABS: Basophils # (auto) 0 uL; Eosinophils # (auto) 0.1 uL; Eosinophils % (auto) 2.7 % (0.0-7.0); Hematocrit 29.1 % (41.0-53.0); Hemoglobin 9.7 g/dL (13.5-17.5); Lymphocytes # (auto) 0.5 uL; Lymphocytes % (auto) 9.8 % (10.0-50.0); Mean Corpuscular Hemoglobin 30.7 pg (28.0-32.0); Mean Corpuscular Hgb Conc. 33.3 g/dL (32.0-36.0); Mean Corpuscular Volume 92.3 fL (80.0-100.0); Monocytes # (auto) 0.5 uL; Monocytes % (auto) 11.8 % (0.0-12.0); Neutrophils # (auto) 3.5 uL; Neutrophils % (auto) 74.7 % (37.0-80.0); Nucleated Red Blood Cells % 0.2 %; Platelet Count (auto) 92 10^3/uL (140-450); Red Blood Cells 3.15 10^6/uL (4.5-5.90); White Blood Cell 4.6 10^3/uL (4.4-10.8)
[2019-10-15 04:15] LABS: Potassium 4.2 mmol/L (3.5-5.1)
[2019-10-15 04:22] LABS: Albumin 2.3 g/dL (3.4-5.0); BUN/Creatinine Ratio 5.9; Bilirubin, Total 0.7 mg/dL (0.2-1.0); Calcium 8.3 mg/dL (8.5-10.1)
[2019-10-15] MEDS: fentaNYL Drip 2500mCg/250mlNS 250 ML IV SCH (05:20)
--- NOTE | 2019-10-15 05:20 | NUR ---
STARTED FENTANYL GTT TO WEAN DIPRIVAN FOR ANTICIPATED CPAP TRIAL
--- NOTE | 2019-10-15 06:45 | NUR ---
CLOSING NOTE: REMAINS INTUBATED AND ON SEDATION, ATTEMPTING TO WEAN TOLERATED. VSS OTHERWISE. MITTENS ON FOR SAFETY. WILL ENDORSE CARE TO DAY SHIFT
--- NOTE | 2019-10-15 07:07 | NUR ---
REPORT AND CARE ENDORSED TO ALVERTO PEARSON
[2019-10-15] MEDS: NOREPINEPHRINE 8 MG/250ML KIT 250 ML IV SCH (09:02)
--- NOTE | 2019-10-15 09:32 | NUR ---
CONTROL SYSTEMS DRAFTING OFFICER AT BEDSIDE
[2019-10-15] MEDS: ASPirin 81 mg TAB PO SCH (10:00)
--- NOTE | 2019-10-15 10:18 | NUR ---
EEG- Electroencephalogram completed on 10/15/2019.
[2019-10-15] MEDS: CALCITRIOL 1 MCG/ML AMPULE IV SCH (10:22)
[2019-10-15] MEDS: CLOPIDOGREL BISULFATE 75 MG TAB PO SCH (10:23)
[2019-10-15] MEDS: FAMOTIDINE 20 MG TAB PO SCH (10:23)
[2019-10-15] MEDS: cefTRIAXone 1GM/50ML D5W 50 ML IV SCH (10:24)
--- NOTE | 2019-10-15 10:45 | NUR ---
FAMILY AT BEDSIDE UPDATED ON PATIENT'S STATUS, ALL QUESTIONS ANSWERED.
--- NOTE | 2019-10-15 11:00 | NUR ---
HOSPITALIST AT BEDSIDE DR CLANCY UPDATED ON PATIENT'S STATUS AND NEURO STATUS. DR CLANCY DISCUSSED PRE-HOSPITALIZATION CONDITION WITH SPOUSE AND SHE UPDATED MD ON PATIENT'S HISTORY AND REASON FOR ADMISSION. SPOUSE ALSO MENTIONED TO BOTH DR CLANCY AND THIS NURSE THAT HE HAD "JUST BEEN DISCHARGED FROM [facility] FOR FLUID OVERLOAD 8 DAYS AGO BEFORE THIS HAPPENED". DR CLANCY ALSO UPDATED ON UNSUCCESSFUL CPAP ATTEMPTS PRIOR DUE TO PATIENT MENTAL STATUS AND AGITATION AND PLAN TO AWAKEN PATIENT SLOWLY AND SAFELY WITH MEDICATION CHANGE FOR A THIRD ATTEMPT. BOTH DR CLANCY AND SPOUSE TAHIR VERBALIZED UNDERSTANDING. PRECEDEX WILL BE RESTARTED AND CONTINUE ON LOW DOSE FENTANYL AND TITRATE PROPOFOL DOWN TO SEE IF PATIENT WILL BE ABLE TO WAKE UP AND FOLLOW COMMANDS WITHOUT BEING AGITATED AND AGGRESSIVE. FALL AND SAFETY PRECAUTIONS IN PLACE, WILL CONTINUE TO MONITOR.
[2019-10-15] MEDS ORDERED: PIPERACILLIN-TAZOB 0.75 GM in D5W 5% 50 ML IV PRN (14:30)
--- NOTE | 2019-10-15 15:05 | NUR ---
CALL RECEIVED FROM [facility] SPOKE WITH [facility] - PROVIDED REQUESTED INFORMATION, [facility] STATED THEY ARE GETTING READY FOR POSSIBLE TRANSFER, [facility] PROVIDED WITH PATIENT'S TAHIR'S PHONE NUMBER.
--- NOTE | 2019-10-15 17:05 | NUR ---
DR WASHINGTON AT BEDSIDE DISCUSSED POC WITH AT BEDSIDE. ORDERED ALL SEDATION TO BE TURNED OFF TO ASSESS NEUROLOGIC STATUS AND ATTEMPT TO CPAP TOMORROW MORNING. Signed: 10/15/19 at 184 by MARQUITA STEWART SN <Co-Signature Required> Co-Signed: 10/15/19 at 1844 by Concepción Haider RN Addendum: 10/16/19 at 09 by Concepción Haider RN LATE ENTRY: TAHIR NOTIFIED THIS NURSE THAT SHE RECEIVED CALL FROM [facility] TO DISCUSS POSSIBLE TRANSFER, TAHIR STATED "IF THEY WILL PAY 100% THEN SHE WANTS PATIENT TO STAY HERE AT [facility]". NO CALL RECEIVED FROM [facility] OF YET. Signed: 10/16/19 at 7478 by Concepción Haider RN
[2019-10-15] MEDS: SODIUM CHLORIDE 0.9% 1,000 ML IV SCH (17:30)
--- NOTE | 2019-10-15 18:33 | NUR ---
Respiratory note: RECEIVED PT ON VENT V4, VENT CONNECTED TO RED OUTLET AND O2 SOURCE, ALARMS ARE SET AND AUDIBLE AMBU BAG AND MASK AT BEDSIDE. BS ARE FINE COURSE, SXD SCANT JOYCE/CLEAR. FAMILY AT BEDSIDE. CURRENT TEMP IS 98.1F. RT NAME AND PAGER ASSIGNMENT WRITTEN ON PTS ROOM BOARD. WILL CONTINUE TO MONITOR.
--- NOTE | 2019-10-15 19:21 | NUR ---
END OF SHIFT NOTE PATIENT MECHANICALLY VENTILATED NON SEDATED, CALM/RELAXED. VITAL SIGNS STABLE AND DOCUMENTED. ENDORSED CONTINUED CARE TO INSPECTOR SUBASSEMBLIES RN.
--- NOTE | 2019-10-15 19:30 | NUR ---
PER DAY SHIFT RESTARTED LOW DOSE FENT AND PRECEDEX - D/T PATIENT MOVING
--- NOTE | 2019-10-15 20:00 | NUR ---
STOPPED PRECEDEX GTT, WILL CONTINUE FENTANYL GTT FOR COMFORT
--- NOTE | 2019-10-15 20:11 | NUR ---
Respiratory note: ROUTINE VENT CHECK DONE AT THIS TIME NO VENT CHANGES MADE, RN TRIXIE AT BEDSIDE.
--- NOTE | 2019-10-15 20:30 | NUR ---
TEMP 97.9F RECTALLY - PLACED WARM BLANKET AND TURNED ON HEATING LAMP
[2019-10-15] MEDS: DexMEDEtomidine 400 MCG in D5W 5% 96 ML IV SCH (20:57)
[2019-10-15] MEDS: PIPERACILLIN-TAZOB 2.25GM 50 ML IV SCH (21:23)
--- NOTE | 2019-10-15 21:24 | NUR ---
UNABLE TO COMPLETE SEDATION VACATION AT THIS TIME: PATIENT KNOWN TO BE AGGRESSIVE AND AGITATED. ON LOW DOSE FENTANYL AT THIS TIME. Addendum: 10/15/19 at 2126 by Kiki Garcia RN RN Amended: Links added.
--- NOTE | 2019-10-15 21:45 | NUR ---
BP HOVERING IN 80s, MAP 50s - STOPPED FENTANYL GTT
--- NOTE | 2019-10-15 22:11 | NUR ---
Respiratory note: ROUTINE VENT CHECK DONE AT THIS TIME NO VENT CHANGES MADE, CURRENT TEMP IS 98.1F. NO SX DONE AT THIS TIME, BS ARE CLEAR T/O. RN TRIXIE AT BEDSIDE.
--- NOTE | 2019-10-15 22:36 | NUR ---
SBP RECOVERED TO 90s, MAP 66
--- NOTE | 2019-10-15 22:38 | NUR ---
PATIENT'S CALLED [facility]: AFTER PASSWORD VERIFIED. UPDATED ON PATIENT'S STATUS. ANSWERED ALL QUESTIONS ABLE. WILL CONT CARE
[2019-10-16] VITALS (89 sets, daily range): BP systolic 96–177; BP diastolic 46–87
--- NOTE | 2019-10-16 | NUR ---
BED BATH WITH CHG WIPES, KAMRYN CARE, ORAL CARE, AND PARTIAL LINEN CHANGE COMPLETED
--- NOTE | 2019-10-16 00:30 | NUR ---
PLACED BED ON AUTO-ROTATE: 20 DEGREES RIGHT AND LEFT WITH A 90 MINUTE HOLD, RIGHT, CENTER, AND LEFT
--- NOTE | 2019-10-16 00:30 | NUR ---
Respiratory note: ROUTINE VENT CHECK DONE AT THIS TIME NO VENT CHANGES MADE, CURRENT TEMP IS 98.6F. WILL CONTINUE TO MONITOR.
--- NOTE | 2019-10-16 00:33 | NUR ---
NEURO ASSESSMENT: OPENED EYES BUT FELL BACK ASLEEP, MOVING EXTREMITIES A LITTLE MORE THAN PREVIOUSLY. SEDATION REMAINS OFF AT THIS TIME. BILATERAL MITTENS REMAIN ON FOR SAFETY
--- NOTE | 2019-10-16 00:33 | NUR ---
TEMP NOW 98.6F RECTALLY
[2019-10-16] MEDS: SODIUM CHLORIDE 0.9% 1,000 ML IV SCH ×2 (02:07→22:13)
--- NOTE | 2019-10-16 02:12 | NUR ---
Respiratory note: AT BEDSIDE FOR ROUTINE VENT CHECK, .HME AND SX CATHETER CHANGED AT THIS TIME. CURRENT TEMP IS 98.4F. VENT CHANGES MADE AT THIS TIME. WILL CONTINUE TO MONITOR.
--- NOTE | 2019-10-16 04:23 | NUR ---
Respiratory note: END OF SHIFT VENT CHECK. NO VENT CHANGES MADE. CURRENT TEMP IS 98.8F. WILL HAVE DAY SHIFT CONTINUE TO MONITOR.
[2019-10-16 04:37] LABS: Basophils # (auto) 0 uL; Basophils % (auto) 1.1 % (0.0-2.0); Eosinophils # (auto) 0.2 uL; Eosinophils % (auto) 4.7 % (0.0-7.0); Hematocrit 28.8 % (41.0-53.0); Hemoglobin 9.4 g/dL (13.5-17.5); Lymphocytes # (auto) 0.6 uL; Lymphocytes % (auto) 13.8 % (10.0-50.0); Mean Corpuscular Hemoglobin 30.4 pg (28.0-32.0); Mean Corpuscular Hgb Conc. 32.8 g/dL (32.0-36.0); Mean Corpuscular Volume 92.9 fL (80.0-100.0); Monocytes # (auto) 0.4 uL; Monocytes % (auto) 11.2 % (0.0-12.0); Neutrophils # (auto) 2.8 uL; Neutrophils % (auto) 69.2 % (37.0-80.0); Platelet Count (auto) 81 10^3/uL (140-450); Red Cell Distribution Width 16.7 % (11.8-14.3)
[2019-10-16 04:53] LABS: INR 1.22 (0.9-1.15)
[2019-10-16 05:10] LABS: Potassium 4.4 mmol/L (3.5-5.1)
[2019-10-16 05:18] LABS: Albumin 2.1 g/dL (3.4-5.0); BUN/Creatinine Ratio 5.9; Bilirubin, Total 0.8 mg/dL (0.2-1.0); Calcium 8.3 mg/dL (8.5-10.1); Magnesium 2.2 mg/dL (1.6-2.6); Phosphorus 5.1 mg/dL (2.5-4.90); Total Protein 5.8 g/dL (6.4-8.2)
--- NOTE | 2019-10-16 06:23 | NUR ---
CLOSING NOTE: REMAINS INTUBATED AND OFF OF SEDATION. INTERMITTENTLY OPENS EYES, AND OCCASIONALLY ATTEMPTS TO LEAN FORWARD. VSS. MITTENS REMAIN ON BILATERALLY FOR SAFETY. WILL ENDORSE CARE TO DAY SHIFT.
--- NOTE | 2019-10-16 07:05 | NUR ---
REPORT AND CARE ENDORSED TO ALVERTO PEARSON
--- NOTE | 2019-10-16 07:22 | NUR ---
Respiratory note: RECEIVED PATIENT ON V4 V200 VENT ORALLY INTUBATED WITH AN 8.0 ETT SECURED VIA ELIAS ST THE 24CM MARKING AT THE LIP, AND MECHANICALLY VENTILATED WITH THE CHARTED SETTINGS. SPO2 98%, LUNG SOUNDS DIM T/O, NO SECRETIONS WHEN SUCTIONED.SKIN IS WARM/DRY TO THE TOUCH AND IS INTACT NEAR ELIAS SITE. THERE IS AN OGT IN PLACE AND SECURED TO THE ETT, A ENRIQUE DRAIN IS LOCATED OIN THE RIGHT UPPER ABDOMEN, NO ADVANCE ACCESS LINES NOTED. NON PITTING EDEMA NOTED IN BILATERAL UPPER EXTREMITIES, NO EDEMA NOTED IN LOWER EXTREMITIES. SEQUENTIAL STOCKINGS IN PLACE AND OPERATIONAL. NO NEW AM CXR TO ASSESS. PATIENT IS UNRESPONSIVE TO BOTH VERBAL/TACTILE STIMULI AND IS OFF SEDATION. HE IS RESTING COMFORTABLY AND TOLERATING VENT WELL, NO CHANGES MADE. VENT PLUGGED INTO RED OUTLET AND ALL ALARMS ARE SET AND AUDIBLE. WILL CONTINUE TO ASSESS PATIENT WELL VENTILATOR FUNCTION.
--- NOTE | 2019-10-16 07:30 | NUR ---
OPENING SHIFT NOTE REPORT RECEIVED FROM ROOF BOLTER OPERATOR RN, MORNING ASSESSMENT PERFORMED AND DOCUMENTED. 74 YEAR OLD MALE, MECHANICALLY VENTILATED, NOT SEDATED, UNRESPONSIVE. HOB ELEVATED GREATER THAN 30 DEGREES, ETT SECURED TO ELIAS, ORAL CARE AND SUCTION RENDERED - HYPOACTIVE GAG AND COUGH NOTED. ERICA 4+ BRISK, PATIENT NOT FOLLOWING COMMANDS AT THIS TIME - DOES NOT OPEN EYES OR SQUEEZE HANDS ON COMMAND - ONLY MOVES LEFT ARM AND LEG WITH NO PURPOSE. OGT CLAMPED AND PLACEMENT VERIFIED VIA AUSCULTATION WITH AIR BOLUS AND ASSISTED BY VIRGILIO Greer STUDENT ROOFER APPRENTICE RN. RIGHT GROIN CENTRAL LINE PATENT AND INFUSING NS AT 50 MLS/HR ORDERED BY MD - NO LEAKING, REDNESS OR SWELLING NOTED TO SITE, DRESSING IS CLEAN, DRY AND INTACT. ABDOMEN SOFT TO TOUCH - NO MEZA CATHETER IN PLACE PATIENT ANURIC AND ON HEMODIALYSIS. SCD'S TO BILATERAL LOWER EXTREMITIES ACTIVE. BED IN LOWEST POSITION, MITTENS PLACED TO BILATERAL HANDS FOR PATIENT SAFETY DURING WAKE PROCESS, COMFORT AND SAFETY MEASURES IN PLACE. CLOSE MONITORING DURING SHIFT.
--- NOTE | 2019-10-16 08:30 | NUR ---
FAMILY AT BEDSIDE PATIENT NON RESPONSIVE AT THIS TIME. WILL CONTINUE TO MONITOR NEURO STATUS. FALL AND SAFETY PRECAUTIONS IN PLACE.
[2019-10-16] MEDS: NOREPINEPHRINE 8 MG/250ML KIT 250 ML IV SCH (09:02)
--- NOTE | 2019-10-16 09:41 | NUR ---
FAMILY AT BEDSIDE/CONTACT [facility] PATIENT'S SPOUSE TAHIR AT BEDSIDE. CONTACT [facility] UTILIZATION REVIEW DEPARTMENT FOR FOLLOW-UP ON TRANSFER. SPOKE WITH WES, PHARMACY INFORMATICS SPECIALIST AND SHE NOTIFIED THIS NURSE THAT " PATIENT'S TAHIR OPTED FOR PATIENT TO STAY HERE AT [facility] LONG SHE DID NOT HAVE ANY OUT OF POCKET EXPENSE AND SHE WILL NOT HAVE TO PAY ANYTHING SO HE IS OK TO STAY". TAHIR REQUESTED TO SPEAK WITH UTILIZATION DEPARTMENT AND NOTIFIED WES THAT SHE WILL MAKE A DECISION TO TRANSFER IN ONE HOUR. [facility] WAS PROVIDED WITH UPDATED IN FORMATION LABS AND CURRENT VITAL SIGNS. [facility] REQUESTING A TRANSFER SUMMARY TO BE FAXED TO THEM INCLUDING MD PHONE NUMBER FOR DOCTOR TO DOCTOR CONNECTION. URD: FAX:
[2019-10-16] MEDS: ASPirin 81 mg TAB PO SCH (09:52)
[2019-10-16] MEDS: FAMOTIDINE 20 MG TAB PO SCH (09:53)
[2019-10-16] MEDS: CLOPIDOGREL BISULFATE 75 MG TAB PO SCH (09:53)
[2019-10-16] MEDS: PIPERACILLIN-TAZOB 2.25GM 50 ML IV SCH ×2 (09:54→22:12)
--- NOTE | 2019-10-16 10:53 | NUR ---
CONTACT RADIOLOGY FOR CXR READING, BIBIANA STATED SHE WOULD REQUEST.
--- NOTE | 2019-10-16 10:54 | NUR ---
CONTACT DR ARVIZU TO UPDATE ON PATIENT NEURO STATUS AND POSSIBLE [facility] TRANSFER, MESSAGE LEFT WITH EXCHANGE, AWAITING RETURN CALL.
--- NOTE | 2019-10-16 11:01 | NUR ---
RETURN CALL FROM DR ARVIZU DOCTOR UPDATED ON PATIENT'S STATUS AND PENDING POSSIBLE TRANSFER TO [place] IF FAMILY REQUESTS. ORDERS FOR REPEAT HEAD CT RECEIVED AND OK FOR TRANSFER. WILL NOTIFY HOSPITALIST AND AWAITING FAMILY DECISION. TAHIR, PATIENT SPOUSE AWARE OF REPEAT HEAD CT.
--- NOTE | 2019-10-16 11:29 | NUR ---
CALL RECEIVED FROM DR ESEQUIEL IRAHETA UPDATED ON PATIENT'S STATUS, TOTAL DRAIN OUTPUT OF 5 MLS IN 48/HRS, PENDING HEAD CT AND POSSIBLE TRANSFER TO [place]. ORDERS FOR REPEAT ECHO ON THURSDAY AND REMOVAL OF PERICARDIAL DRAIN BY DIRECTOR BUILDING. DR IRAHETA ALSO STATED PATIENT OK TO TRANSFER TO [place] IF FAMILY REQUESTS. Addendum: 10/16/19 at 1507 by Concepción Haider RN PAGED ARCHIVIST ECONOMIC HISTORY DIRECTOR BUILDING DR SORIANO, AWAITING RESPONSE.
--- NOTE | 2019-10-16 12:00 | NUR ---
FAMILY/TRANSFER PER TAHIR () SHE STATED "AFTER SPEAKING TO MANY FAMILY MEMBERS WE ALL OPTED INTO KEEPING HIM HERE BECAUSE OF THE OUTSTANDING CARE AND ATTENTION MY HAS HAD HERE." TAHIR ALSO STATED "NOW, EASY I AM TO GIVE COMPLIMENTS, I AM ALSO EASY TO EXPLODE WHEN SOMETHING IS NOT RIGHT. SO STAY ON YOUR TOES." Signed: 10/16/19 at 1518 by MARQUITA STEWART <Co-Signature Required> Co-Signed: 10/16/19 at 1518 by Concepción Haider RN
--- NOTE | 2019-10-16 12:20 | NUR ---
RT Transport Note: Patient transported to CT with ALVERTO PEARSON. Patient transported to and from procedure on ventilator with previous ordered settings. Patient on coffee bar attendant with alarms set and audible, ambu-bag/mask connected to 02 tank. Patient returned to room with no adverse reaction noted. Transport completed without incident.
--- NOTE | 2019-10-16 12:30 | NUR ---
PATIENT OFF/RETURN FLOOR TO RADIOLOGY/COMFORT FOR ORDERED HEAD CT VIA GURNEY, CONNECTED TO PORTABLE MONITOR AND VENTILATOR. PATIENT ACCOMPANIED BY THIS NURSE, Patrick CORTEZ AND DIOGO POOLE RN. 12:45: PATIENT RETURN TO FLOOR, NON SEDATED, NON RESPONSIVE. PATIENT CONNECTED TO BEDSIDE MONITOR AND CONNECTED BACK ON MECHANICAL VENTILATOR.
--- NOTE | 2019-10-16 13:00 | NUR ---
COMFORT/DR ARVIZU AT BEDSIDE COMFORT MEASURES PROVIDED, PARTIAL BEDDING AND GOWN CHANGED AFTER SKIN CARE RENDERED. PATIENT TOLERATED WELL, STILL NO RESPONSE NEUROLOGICALLY. PATIENT ONLY SHRUGS BILATERAL SHOULDERS AND MOVES LEFT LEG, DOES NOT OPEN EYES OR FOLLOW COMMANDS. DR ARVIZU AT BEDSIDE, UPDATED ON STATUS AND CT HEAD COMPLETED AND READY FOR REVIEW. DR ARVIZU ASSESSED PATIENT - NO FURTHER ORDERS AT THIS TIME. DR ARVIZU ALSO AWARE OF PATIENT'S SPOUSE TAHIR REQUESTING PATIENT TO STAY HERE AT [facility] FOR CONTINUED TREATMENT.
--- NOTE | 2019-10-16 14:00 | NUR ---
DR SANFORD/DR BEVERLY AT BEDSIDE BOTH MD'S UPDATED ON PATIENT'S NEUROLOGICAL STATUS AND NON SEDATION. BOTH DOCTOR'S VERBALIZED UNDERSTANDING. FAMILY NOT AT BEDSIDE AT THIS TIME - NOR IN ICU WAITING ROOM.
--- NOTE | 2019-10-16 14:30 | NUR ---
FAMILY AT BEDSIDE
[2019-10-16] MEDS: PROPOFOL 100 ML IV SCH (14:48)
--- NOTE | 2019-10-16 17:05 | NUR ---
ENTERAL FEEDING STARTED/NEURO STATUS PER DR BEVERLY, FAMILY AWARE AND AT BEDSIDE. PATIENT REMAINS MECHANICALLY VENTILATED, NOT SEDATED - PATIENT DOES NOT OPEN EYES, ONLY SHRUGS BILATERAL SHOULDERS OR MOVES LEFT LOWER LEG. VSS AND DOCUMENTED, NO DISTRESS NOTED, RESPIRATIONS EVEN AND UNLABORED. FALL AND SAFETY PRECAUTIONS IN PLACE.
[2019-10-16] MEDS: fentaNYL Drip 2500mCg/250mlNS 250 ML IV SCH (17:55)
[2019-10-16] MEDS: DexMEDEtomidine 400 MCG in D5W 5% 96 ML IV SCH (18:02)
--- NOTE | 2019-10-16 19:07 | NUR ---
END OF SHIFT NOTE PATIENT MECHANICALLY VENTILATED, NOT SEDATED, UNRESPONSIVE. VSS AND DOCUMENTED, NO DISTRESS NOTED, RESPIRATIONS EVEN AND UNLABORED. FALL AND SAFETY PRECAUTIONS IN PLACE. ENDORSED CONTINUED CARE TO ASBESTOS SIDING MECHANIC RN.
--- NOTE | 2019-10-16 19:30 | NUR ---
OPEN RECEIVED REPORT AND ASSUMED CARE OF MALE PT ORALLY INTUBATED OFF SEDATION.PT HAS PT IS CONNECTED TO ICU MONITORS, VS ARE STABLE, RR ARE EQUAL AND UNLABORED O2 SAT99%. PT DOES NOT OPENS EYES. PUPILS ARE 4 EQUAL AND REACTIVE. PT NOT FOLLOWING COMMANDS AT THIS TIME. PT HAS OGT RUNNING FEEDING AT 50ML/HR.OGT PLACEMENT IS VERIFIED. PT HAS R GROIN TLC. LINES FLUSHED WITH NS, NO RESISTANCE NOTED, LINES PATENT AND ASYMPTOMATIC. PT HAS BILATERAL SCDS ON LOWER EXTREMITIES. PT HAS OPTI FOAM TO SACRUM A PREVENTIVE MEASURE. PILLOWS ARE IN PLACE UNDER ANAHI PROMINENCES FOR COMFORT AND SAFETY.BED IS IN LOWEST POSITION, WHEELS ARE LOCKED,SIDE RAILS UP X2, HOB 45* PT IS IN FULL VIEW OF RN STATION. WILL CONTINUE TO CARE FOR AND MONITOR.
--- NOTE | 2019-10-16 20:15 | NUR ---
CARE PROVIDED TURNED FOR COMFORT AND SAFETY, ORAL CARE PROVIDED, PT TOLERATED CARE, VS STABLE
--- NOTE | 2019-10-16 23:20 | NUR ---
PT TOLERATING FEEDING PT TOLERATING FEEDING, 0CC RESIDUAL
[2019-10-17] VITALS (43 sets, daily range): BP systolic 88–174; BP diastolic 47–93
--- NOTE | 2019-10-17 03:15 | NUR ---
SUCTION CANISTERS AND TUBING CHANGED
[2019-10-17 03:47] LABS: Basophils # (auto) 0.1 uL; Eosinophils # (auto) 0.2 uL; Eosinophils % (auto) 3.4 % (0.0-7.0); Hematocrit 31.6 % (41.0-53.0); Hemoglobin 10.2 g/dL (13.5-17.5); Lymphocytes # (auto) 0.7 uL; Lymphocytes % (auto) 12.6 % (10.0-50.0); Mean Corpuscular Hemoglobin 30.6 pg (28.0-32.0); Mean Corpuscular Hgb Conc. 32.2 g/dL (32.0-36.0); Mean Corpuscular Volume 95.1 fL (80.0-100.0); Monocytes # (auto) 0.6 uL; Platelet Count (auto) 91 10^3/uL (140-450); Red Blood Cells 3.32 10^6/uL (4.5-5.90); Red Cell Distribution Width 17.1 % (11.8-14.3); White Blood Cell 5.5 10^3/uL (4.4-10.8)
[2019-10-17 03:58] LABS: Albumin 2.2 g/dL (3.4-5.0); Calcium 8.4 mg/dL (8.5-10.1); Magnesium 2.2 mg/dL (1.6-2.6); Potassium 4.9 mmol/L (3.5-5.1)
[2019-10-17 04:01] LABS: BUN/Creatinine Ratio 6.1; Bilirubin, Total 0.8 mg/dL (0.2-1.0); Phosphorus 6.6 mg/dL (2.5-4.90); Total Protein 6.3 g/dL (6.4-8.2)
--- NOTE | 2019-10-17 05:00 | NUR ---
HYGIENE BED BATH GIVEN, LINENS CHANGED, PT TOLERATED CARE. VS ARE STABLE
--- NOTE | 2019-10-17 06:42 | NUR ---
PTS VS ARE STABLE. PT REMAINS INTUBATED, LAYING IN BED APPEARS TO BE SLEEPING. IVS ARE CLEAN AND DRY, PATENT, ASYMPTOMATIC. PT SHOWS NO SS OF DISTRESS AT THIS TIME.
--- NOTE | 2019-10-17 07:00 | NUR ---
CLOSING NOTE SHIFT REPORT GIVE BACK AND CARE ENDORSED TO CORY DEL TORO Addendum: 10/17/19 at 1943 by NEERU RODRIGUES RN RN [id number]
--- NOTE | 2019-10-17 07:15 | NUR ---
OPENING NOTE SHIFT REPORT RECEIVED AND ASSUMED CARE OF PT FROM CORY DEL TORO
--- NOTE | 2019-10-17 07:15 | NUR ---
REPORT GIVEN TO ALVERTO SIDDIQI AND CARE ENDORSED.
[2019-10-17] MEDS: NOREPINEPHRINE 8 MG/250ML KIT 250 ML IV SCH (09:02)
[2019-10-17] MEDS ORDERED: PHYTONADIONE (VIT K)10 MG/ML 1ML VIAL SUBCUT ONE (10:30)
[2019-10-17] MEDS: ASPirin 81 mg TAB PO SCH (10:58)
[2019-10-17] MEDS: CALCITRIOL 1 MCG/ML AMPULE IV SCH (10:58)
[2019-10-17] MEDS: PIPERACILLIN-TAZOB 2.25GM 50 ML IV SCH ×2 (10:58→21:39)
[2019-10-17] MEDS: FAMOTIDINE 20 MG TAB PO SCH (10:58)
[2019-10-17] MEDS ORDERED: hydrALAZINE HCL 20 MG/ML VL IV PRN ×2 (11:00→16:45)
[2019-10-17] MEDS: CLOPIDOGREL BISULFATE 75 MG TAB PO SCH (11:01)
--- NOTE | 2019-10-17 11:16 | NUR ---
re-assessment I have left another message for patients Carrie to return my call. Waiting hand ironer back now. Addendum: 10/17/19 at 1117 by Bertha MOHAN Amended: Links added.
--- NOTE | 2019-10-17 11:42 | NUR ---
Nutrition Follow-up Notes Wt.: 104.0 kg today. Pt remains intubated, non-sedated, had dialysis (10/14/19), currently NPO with EN support of Nephro Carb Steady @ 50 ml/hr providing 2160 kcal, 97 gms pro, 872 ml free water, tolerates feeding, no residuals noted by RN this morning. Pt with adequate EN support d/t high initiation rate delivery of concentrated formula aeb current EN infusion meets 99% to 114% of est caloric needs and 85% to 93% of est protein needs. Noted pt's for active Cardiothoracic and Wound consults. Est. Needs: 8080-7618 kcals (20-23 kcals/kgBW), 104-114 g/kg BW protein/day (1.0-1.2 g/kgBW). Will continue to monitor pertinent labs and reassess nutrient need prn Labs: Gluc 199 H, BUN 54 H, Cr 8.87 H, Ca 8.4 L, Phos 6.6 H, AST 48 H, ALT 497 H, ALP 181 H, Tpro 6.3 L, Alb 2.2 L Skin: Robert scale 11, high risk, pt's left flank open blisters per clinic office manager. Pls refer to mid level clinician's notes for further details re: tx plans. GI: Pt's no bowel activity since 10/10/19, with anuria per clinic office manager. PES: Increased nutrient needs r/t acute/chronic medical condition aeb ESRD on HD, intubated, severe hypoalbuminemia, NPO with EN support. Altered nutrition related lab values r/t current/chronic medical condition aeb hyperglycemia, elev. renal labs, LFTs, hypocalcemia and severe hypoalbuminemia Obesity r/t food intake more than body requirement aeb 143% IBW, BMI 33.9 kg/m2 and increased body adiposity Will continue to monitor NPO status, EN tolerance, skin status, pertinent labs and weight trend. F/u in 2 to 3 days. Rec.: 1.) If still NPO, continue EN support of Nephro Carb Steady @ current rate as tolerated. 2.) If Albumin continues trending down, consider Prostat 1 pkt BID. 3.) Consider daily Nephrovite and Asc acid 500 mgs BID. 4.) Advance to oral diet when medifally appropriate. 5.) Refer pt to CDE/RD for further nutrition education and weight monitoring upon discharge. 6.) Continue current plan of care.
[2019-10-17] MEDS: PROPOFOL 100 ML IV SCH (14:48)
--- NOTE | 2019-10-17 16:57 | NUR ---
RESOURCE RECOVERY ENGINEER AT BEDSIDE
[2019-10-17] MEDS: fentaNYL Drip 2500mCg/250mlNS 250 ML IV SCH (17:55)
[2019-10-17] MEDS ORDERED: SODIUM CHL 0.9% 1000 ML BAG XX ONE (18:45)
--- NOTE | 2019-10-17 19:20 | NUR ---
OPEN RECEIVED REPORT AND ASSUMED CARE OF MALE PT ORALLY INTUBATED OFF SEDATION.PT HAS PT IS CONNECTED TO ICU MONITORS, VS ARE STABLE, RR ARE EQUAL AND UNLABORED. PT DOES NOT OPENS EYES. PUPILS ARE 4 EQUAL AND REACTIVE. PT NOT FOLLOWING COMMANDS AT THIS TIME. PT HAS OGT clamped. OGT PLACEMENT IS VERIFIED. PT HAS R GROIN TLC. LINES FLUSHED WITH NS, NO RESISTANCE NOTED, LINES PATENT AND ASYMPTOMATIC. PT HAS BILATERAL SCDS ON LOWER EXTREMITIES. PT HAS OPTI FOAM TO SACRUM A PREVENTIVE MEASURE. opti foam to lt lateral upper back covering what appears to be an open blister. PILLOWS ARE IN PLACE UNDER ANAHI PROMINENCES FOR COMFORT AND SAFETY.BED IS IN LOWEST POSITION, WHEELS ARE LOCKED,SIDE RAILS UP X2, HOB 45* PT IS IN FULL VIEW OF RN STATION. WILL CONTINUE TO CARE FOR AND MONITOR.
[2019-10-17] MEDS ORDERED: EPOETIN ALFA 10,000 UNIT/1 ML VIAL SC ONE (21:00)
--- NOTE | 2019-10-17 23:15 | NUR ---
tolerates care pt remains intubated, off sedation. no ss of distress noted, vs stable. will continue to monitor
[2019-10-18] VITALS (54 sets, daily range): BP systolic 99–195; BP diastolic 47–97
--- NOTE | 2019-10-18 00:20 | NUR ---
called called, pw provided, poc updated to . dined any further questions or concerns at this time.
--- NOTE | 2019-10-18 03:12 | NUR ---
hygiene partial bed bath given, linens changed
[2019-10-18 04:11] LABS: Basophils # (auto) 0.1 uL; Basophils % (auto) 1.3 % (0.0-2.0); Eosinophils # (auto) 0.2 uL; Eosinophils % (auto) 3.7 % (0.0-7.0); Hematocrit 29.6 % (41.0-53.0); Hemoglobin 9.9 g/dL (13.5-17.5); Lymphocytes # (auto) 0.5 uL; Lymphocytes % (auto) 10.1 % (10.0-50.0); Mean Corpuscular Hemoglobin 31.2 pg (28.0-32.0); Mean Corpuscular Hgb Conc. 33.5 g/dL (32.0-36.0); Mean Corpuscular Volume 93.1 fL (80.0-100.0); Monocytes # (auto) 0.6 uL; Monocytes % (auto) 12.3 % (0.0-12.0); Neutrophils # (auto) 3.5 uL; Neutrophils % (auto) 72.6 % (37.0-80.0); Platelet Count (auto) 85 10^3/uL (140-450); Red Blood Cells 3.18 10^6/uL (4.5-5.90); Red Cell Distribution Width 17.2 % (11.8-14.3); White Blood Cell 4.8 10^3/uL (4.4-10.8)
[2019-10-18 04:28] LABS: Albumin 2.3 g/dL (3.4-5.0); Calcium 8.8 mg/dL (8.5-10.1); Potassium 4.3 mmol/L (3.5-5.1)
[2019-10-18 04:29] LABS: INR 1.23 (0.9-1.15)
[2019-10-18 04:33] LABS: BUN/Creatinine Ratio 5.1; Bilirubin, Total 1.1 mg/dL (0.2-1.0); Total Protein 6.3 g/dL (6.4-8.2)
--- NOTE | 2019-10-18 04:50 | NUR ---
SUCTION CANISTERS AND TUBING CHANGED
[2019-10-18] MEDS: METOPROLOL SUCCINATE XL 50 MG TAB PO SCH (05:31)
[2019-10-18] MEDS: SODIUM CHLORIDE 0.9% 1,000 ML IV SCH (05:32)
--- NOTE | 2019-10-18 06:49 | NUR ---
no ss of distress noted. pt is in bed still ventilated, appears to be sleep, vs are stable, iv is patent, safety measures are in place.
[2019-10-18] MEDS: NOREPINEPHRINE 8 MG/250ML KIT 250 ML IV SCH (09:02)
--- NOTE | 2019-10-18 09:48 | NUR ---
0940 10/18/19 Contacted pharmacy data analyst Rea at [facility] and requested that authorization be provided for patient's continued stay. Per Rea the assigned senior case manager today is Atiya-she has to review today's clinical information to give further authorization. Rea did say that patient's stay is authorized until today 10/18/19 1000-I asked her to fax over that authorization as we never received it. I let pharmacy data analyst Rea know that patient is stable for transfer to [facility] and that the attending physician will be leaving early so the doctors need to connect soon to discuss the patient. Rea said she will forward the message to Metal Burnisher Atiya and ask her to call me back DEE. Faxed transfer order, progress notes and Notice regarding Post Stabilization to [facility]-scanned document into [employer].
[2019-10-18] MEDS ORDERED: LISINOPRIL 20 MG TAB PO SCH ×2 (10:00→11:15)
[2019-10-18] MEDS ORDERED: SODIUM CHL 0.9% 1000 ML BAG XX ONE (10:00)
[2019-10-18] MEDS: ASPirin 81 mg TAB PO SCH (10:01)
[2019-10-18] MEDS: PIPERACILLIN-TAZOB 2.25GM 50 ML IV SCH ×2 (10:01→22:00)
[2019-10-18] MEDS: FAMOTIDINE 20 MG TAB PO SCH (10:02)
[2019-10-18] MEDS: CLOPIDOGREL BISULFATE 75 MG TAB PO SCH (10:02)
[2019-10-18] MEDS: ALBUMIN 25% 100 ML IV PRN ×2 (11:26→13:16)
[2019-10-18] MEDS: DexMEDEtomidine 400 MCG in D5W 5% 96 ML IV SCH (12:12)
[2019-10-18] MEDS ORDERED: LABETALOL HCL 5 MG/ML 4ML SYRINGE IV PRN (12:15)
--- NOTE | 2019-10-18 13:04 | NUR ---
Resumed care at 0730, orders reviewed and ongoing assessments being done. Remains intubated and is being treated for multiple problems. All sedation was weaned off on 10-15-19, has not woken up for CPAP trial. Does shift hips and moves arms in bed but not reaching for any of the medical tubes. Does move head side to side but not opening eyes or able to follow any commands. Dr. Atkins, job press operator rounded at 0820 am and will hold off CPAP trial until he awakens. Dr. Rosen, hospitalist rounded at 0900. Per Dr. Rosen he is stable to transfer to [place]. Per Dr. Rosen there is a possibility that he will require a pericardial window and the the boardinghouse keeper at our facility feel he is a high risk patient and prefer for him to be transferred to [place]. Dr. Rosen initiated the transfer order and Allison Leonardo from case management has been contacted and made aware and is following up. Dr. Bermeo, employee benefits director rounded at 1100 am and he ordered another session of hemodialysis for today. Dialysis nurse arrived and started session at 1140. IVF was discontinued by Dr. Bermeo. Carrie Cardenas was in at 11am and I sat with her in room to discuss condition and plan of care. She had questions that I could not answer. She wanted to speak with Dr. Blue the boardinghouse keeper. Contacted Dr. Blue via phone at [phone] and forward her number so he could call her [phone].
--- NOTE | 2019-10-18 13:05 | NUR ---
1300 10/18/19 Contacted [facility] and spoke with senior budget analyst Stephen who transferred me to senior budget analyst Amber who is working with assigned case packer and sealer Atiya. I asked to speak with Financial Administrative Assistant Atiya regarding the transfer status because I have not received my requested call back. Per Amber Rajput is on the other line and she will ask her to call me DEE.
[2019-10-18] MEDS: PROPOFOL 100 ML IV SCH (14:48)
--- NOTE | 2019-10-18 15:30 | NUR ---
Read case management note from adam Cooper confirmation of transfer at this time. Continue current plan of care. Hemodialysis was completed without incident and total of 4 liters of fluid remove. Per hemodialysis nurse maintain tape wrap to right upper arm fistula until 1700. Echocardiogram being done at bedside.
--- NOTE | 2019-10-18 16:34 | NUR ---
4000 10/18/19 I called [facility] and spoke with Insurance Claims Specialist Atiya ([phone]) regarding the transfer order. She stated that transfer will not happen this evening, most likely not until the morning and it would be for [facility] in [place] due to patient possibly needing pericardial window. Per Insurance Claims Specialist Atiya inpatient authorization is extended until 10/19/19 1000.
--- NOTE | 2019-10-18 17:28 | NUR ---
Made Dr. Rosen aware earlier today that the patient stated allergy to Lisinopril. Lisinopril was ordered and given at 0532 am, 20mg dose due to HTN. Has not demonstrated any signs of an allergic reaction to Lisinopril such as hives, swelling of the face, lips or tongue, remains intubated. Lisinopril has been discontinued. Received call from Atiya Bae from [facility] and updated patient information and discussed transfer. Will follow up in am. She did request for a lactic acid, cbc, cmp, troponin, LFTs, pt/ptt, ABG and chest xray to be drawn. Will order.
[2019-10-18] MEDS: fentaNYL Drip 2500mCg/250mlNS 250 ML IV SCH (17:55)
--- NOTE | 2019-10-18 18:09 | NUR ---
assessment No family at bedside again today when I went to do my assessment. I have left another message for patients Carrie to return my call [phone]. waiting front office representative back now. I have informed ALVERTO Campos to call me if family comes to bedside or get another phone number where she can be reached. Per Beth was at bedside and has left. Addendum: 10/18/19 at 1812 by Bertha MOHAN Amended: Links added.
--- NOTE | 2019-10-18 18:54 | NUR ---
Continues to move head side to side and shifts hips and moves legs. Still not opening eyes or following any commands. Partial bath was given and complete linen changed done. Changed dressing to left upper back, open blister that resolved. Skin thin and applied a layer of thera honey gel and clean optifoam dressing. Applied optifoam to coccyx/sacral area for preventive measures.
--- NOTE | 2019-10-18 19:15 | NUR ---
OPEN RECEIVED REPORT AND ASSUMED CARE OF MALE PT ORALLY INTUBATED OFF SEDATION.PT HAS PT IS CONNECTED TO ICU MONITORS, VS ARE STABLE, RR ARE EQUAL AND UNLABORED. PT DOES NOT OPENS EYES. PUPILS ARE 4 EQUAL AND REACTIVE. PT NOT FOLLOWING COMMANDS AT THIS TIME. PT HAS OGT clamped. OGT PLACEMENT IS VERIFIED. PT HAS R GROIN TLC. LINES FLUSHED WITH NS, NO RESISTANCE NOTED, LINES PATENT AND ASYMPTOMATIC. PT HAS BILATERAL SCDS ON LOWER EXTREMITIES. PT HAS HYPERPIGMENTATION TO BILATERAL LOWER EXTREMITIES. PT HAS HEALED BLISTER. PILLOWS ARE IN PLACE UNDER ANAHI PROMINENCES FOR COMFORT AND SAFETY.BED IS IN LOWEST POSITION, WHEELS ARE LOCKED,SIDE RAILS UP X2, HOB 45* PT IS IN FULL VIEW OF RN STATION. WILL CONTINUE TO CARE FOR AND MONITOR.
[2019-10-18] MEDS ORDERED: EPOETIN ALFA 4,000 UNIT/ML VL SC ONE (21:00)
--- NOTE | 2019-10-18 21:15 | NUR ---
PT IS RESTLESS PT IS RESTLESS IN BED, STILL NOT OPENING EYES, NOT FOLLOWING COMMANDS.
--- NOTE | 2019-10-18 23:05 | NUR ---
tolerates care pt remains intubated, off sedation. no ss of distress noted, vs stable. will continue to monitor
[2019-10-19] VITALS (41 sets, daily range): BP systolic 82–182; BP diastolic 39–98
--- NOTE | 2019-10-19 00:40 | NUR ---
CALLED PROVIDED PW, POC AND UPDATE WAS PROV Addendum: 10/19/19 at 0042 by CORY OGDEN RN CALLED PROVIDED PW, POC AND UPDATE WAS DISCUSSED. STATED THANK YOU AND DENIED FURTHER QUESTIONS AT THIS TIME.
--- NOTE | 2019-10-19 03:15 | NUR ---
hygiene partial bed bath given, linens changed
[2019-10-19] MEDS ORDERED: hydrALAZINE HCL 20 MG/ML VL ONE (04:14)
[2019-10-19 04:17] LABS: Basophils # (auto) 0 uL; Basophils % (auto) 0.8 % (0.0-2.0); Eosinophils # (auto) 0.2 uL; Eosinophils % (auto) 4.4 % (0.0-7.0); Hematocrit 29.1 % (41.0-53.0); Hemoglobin 9.4 g/dL (13.5-17.5); Lymphocytes # (auto) 0.6 uL; Lymphocytes % (auto) 13.4 % (10.0-50.0); Mean Corpuscular Hemoglobin 30.7 pg (28.0-32.0); Mean Corpuscular Hgb Conc. 32.3 g/dL (32.0-36.0); Mean Corpuscular Volume 95.1 fL (80.0-100.0); Monocytes # (auto) 0.7 uL; Monocytes % (auto) 14.7 % (0.0-12.0); Neutrophils # (auto) 3.1 uL; Neutrophils % (auto) 66.7 % (37.0-80.0); Nucleated Red Blood Cells % 0.2 %; Platelet Count (auto) 92 10^3/uL (140-450); Red Blood Cells 3.06 10^6/uL (4.5-5.90); Red Cell Distribution Width 17.9 % (11.8-14.3); White Blood Cell 4.6 10^3/uL (4.4-10.8)
[2019-10-19 04:25] LABS: INR 1.26 (0.9-1.15); Partial Thromboplastin Time 30.8 sec (23.64-32.05)
[2019-10-19 05:00] LABS: Albumin 2.7 g/dL (3.4-5.0); Bilirubin, Direct 0.6 mg/dL (0-0.2); Calcium 8.9 mg/dL (8.5-10.1); Potassium 4.2 mmol/L (3.5-5.1)
--- NOTE | 2019-10-19 05:00 | NUR ---
CANISTERS AND TUBING CHANGED
[2019-10-19 05:05] LABS: BUN/Creatinine Ratio 4.2; Bilirubin, Total 1.4 mg/dL (0.2-1.0); Total Protein 6.5 g/dL (6.4-8.2)
[2019-10-19] MEDS ORDERED: SODIUM CHL 0.9% 1000 ML BAG XX ONE (07:00)
--- NOTE | 2019-10-19 07:30 | NUR ---
REPORT GIVEN AND CARE ENDORSED TO ALVERTO COFFEY
[2019-10-19] MEDS: NOREPINEPHRINE 8 MG/250ML KIT 250 ML IV SCH (09:02)
[2019-10-19] MEDS: DexMEDEtomidine 400 MCG in D5W 5% 96 ML IV SCH (09:17)
--- NOTE | 2019-10-19 09:37 | NUR ---
Transfer order faxed to [facility].
--- NOTE | 2019-10-19 09:42 | NUR ---
Resumed care at 07, orders reviewed and ongoing assessments being done. Remains intubated and is being treated for multiple problems. All sedation was weaned off on 10-15-19, has not woken up for CPAP trial. Does shift hips and moves arms in bed but not reaching for any of the medical tubes. Does move head side to side but not opening eyes or able to follow any commands. Hemodialysis ordered again today by Dr. Bermeo. Dialysis nurse Paulette arrived and initiated hemodialysis. AM medications will be held until session complete. Spoke with Allison Leonardo from our case fillerregional facilities manager at 0916. Will continue to follow up on transferring the patient to [facility].
--- NOTE | 2019-10-19 10:20 | NUR ---
1015 10/19/19 Contacted business analyst sales operations Yevgeniy at [facility] and requested authorization to be provided for patient's continued stay as well as requesting an update on the status of the transfer to [facility]. Per Yevgeniy the assigned case fitter is Atiya-she is on the other line and will have to call me back regarding the authorization request and to update me on the transfer. I reminded Yevegniy that patient has an urgent need to be transferred. Per Yevgeniy he will have Neurology Hospitalist Atiya call me back.
--- NOTE | 2019-10-19 11:00 | NUR ---
I spoke with patient's Carrie regarding the status of the transfer to [facility]. I let her know that per my conversation with [facility] Senior Facilities Manager Atiya yesterday, they would try to transfer to [facility] but due to the procedure patient may require-it may need to be done at [facility] in [place]. Patient's upset about the possibility of him being transferred all the way to [place]-I let her know that I would speak with her once I received a call back from the [facility] Senior Facilities Manager.
[2019-10-19] MEDS: FAMOTIDINE 20 MG TAB PO SCH (12:24)
[2019-10-19] MEDS: ASPirin 81 mg TAB PO SCH (12:25)
[2019-10-19] MEDS: PIPERACILLIN-TAZOB 2.25GM 50 ML IV SCH ×2 (12:25→22:22)
[2019-10-19] MEDS: METOPROLOL SUCCINATE XL 50 MG TAB PO SCH (12:25)
[2019-10-19] MEDS: CLOPIDOGREL BISULFATE 75 MG TAB PO SCH (12:25)
[2019-10-19] MEDS: CALCITRIOL 1 MCG/ML AMPULE IV SCH (13:38)
--- NOTE | 2019-10-19 14:45 | NUR ---
1777 10/19/19 Contacted fixed income analyst Arminda at [facility] and requested to speak with Commercial Fisher Atiya (no return call from earlier). Per Arminda both Commercial Fisher Atiya and her fixed income analyst Yevgeniy are on other lines. I provided Arminda with information to relay to Commercial Fisher Atiya-that patient does not need pericardial window at this time, and that the attending physician is Dr. Kingston Cordova-provided her with his contact information. I also asked Arminda to remind test case developermanager Rajput that patient's Carrie is requesting [facility].
[2019-10-19] MEDS: PROPOFOL 100 ML IV SCH (14:48)
--- NOTE | 2019-10-19 15:10 | NUR ---
Nutrition Follow-up Notes Wt.: 104.0 kg as of yesterday. Pt remains intubated, non-sedated, had dialysis yesterday, currently NPO with EN support held at this time. Pt's with previous order for Nephro Carb Steady @ 50 ml/hr providing 2160 kcal, 97 gms pro, 872 ml free water. Noted pt's for active Cardiothoracic and Wound consults. Est. Needs: 0552-3247 kcals (20-23 kcals/kgBW), 104-114 g/kg BW protein/day (1.0-1.2 g/kgBW). Will continue to monitor pertinent labs and reassess nutrient need prn Labs: BUN 21 H, Cr 4.99 H,, Tot [place] 1.4 H, Dir [place] 0.6 H, AST 39 H, ALT 251 H, ALP 128 H, Trop I 0.052 H, Alb 2.7 L Skin: Robert scale 13, mod risk, pt's left flank open blisters per salt machine operator. Pls refer to fermentation scientist's notes for further details re: tx plans. GI: Pt had 2x BM yesterday per salt machine operator. PES: Increased nutrient needs r/t acute/chronic medical condition aeb ESRD on HD, intubated, severe hypoalbuminemia, NPO with EN support. Altered nutrition related lab values r/t current/chronic medical condition aeb hyperglycemia, elev. renal labs, LFTs, hypocalcemia and severe hypoalbuminemia Obesity r/t food intake more than body requirement aeb 143% IBW, BMI 33.9 kg/m2 and increased body adiposity Will continue to monitor NPO status, EN tolerance, skin status, pertinent labs and weight trend. F/u in 2 to 3 days. Rec.: 1.) If still NPO, consider to resume EN support of Nephro Carb Steady @ 50 ml/hr goal rate as tolerated if medically appropriate. 2.) If Albumin continues trending down, consider Prostat 1 pkt BID. 3.) Consider daily Nephrovite and Asc acid 500 mgs BID. 4.) Advance to oral diet when medically appropriate. 5.) Refer pt to CDE/RD for further nutrition education and weight monitoring upon discharge. 6.) Continue current plan of care.
--- NOTE | 2019-10-19 15:39 | NUR ---
Both Dr. Atkins, tallier and Dr. Bermeo, scalemaker rounded at 11 am. Carrie at bedside and was able to speak with them. Tolerated hemodialysis and 2700 ml of fluid removed. Will not attempt CPAP trial not awake to participate with instructions. Does continue to move about in bed, shifting hips and moves head side to side but not able to open eyes or follow any directions. Have spoken to Dr. Blue earlier today and he just rounded in unit. Per Dr. Blue at this time no need for a pericardial window procedure. Dr. Myranda Cordova is covering for Dr. Rosen, he rounded at 1422 and made aware of above. At this point no need to transfer to [facility] for procedure. Have been communicating with Allison, case management throughout the day. Patient's prefers he not be transferred since there is no need for a pericardial window procedure. Made Allison aware.
--- NOTE | 2019-10-19 16:06 | NUR ---
assessment Patients Carrie called me back. Per Carrie prior to admission patient lived home with her and was independent. Patient has a fww and cane for home use. Patients PCP is Dr Broussard at [facility]. Patient is on dialysis at [facility] at 5 am. Carrie agrees to [facility] transfer. Per Carrie she prefers [facility]. I informed Carire she has a right to speak to a social problems specialist regarding all care. I informed Carrie she has a right to participate in any and all discharge planning. Patient does not have a POA and advanced directive. I have offered Carrie information on POA and advanced directives. I informed Carrie the advantages and benefits of having an Advanced Directive. Carrie verbalized understanding and agreed to discharge plan to transfer. Addendum: 10/19/19 at 1609 by Bertha MOHAN Amended: Links added.
--- NOTE | 2019-10-19 17:10 | NUR ---
WOUND CARE NOTE: Wound care in to see patient for skin integrity monitoring. Patient continue resting in ICU bed in RM. 112. Patient is intubated and mechanically ventilated. Patient appears to be in n o pain using Hector Louis Faces Pain Scale. His current Robert score is 13. Patient remain wound free other than resolving skin tear to L flank. Skin tear measuring 0.5x0.6cm, red, partial thickness, clean and dry with pink surrounding skin. Bedside nurse just cleansed and changed the skin tear dressing. New photograph of wound are taken for reference. Patient pass small amount of pasty stool, assisted ALVERTO Anderson to clean patient and to change linen. NO pressure injury noted. Repositioned patient for comfort on his back, redistributed pressure points with pillows. Patient tolerated well. ALVERTO Anderson at bedside. RECOMMENDATION: Continuation of all wound care orders prescribed by MD, continue with skin/wound plan of care, continue monitoring by wound care while patient is hospitalized. Addendum: 10/19/19 at 1749 by Shaunna Forman RN Amended: Links added.
[2019-10-19] MEDS: fentaNYL Drip 2500mCg/250mlNS 250 ML IV SCH (17:55)
--- NOTE | 2019-10-19 18:55 | NUR ---
Spoke with Anton hemodialysis nurse via phone, scheduled for another hemodialysis session tomorrow. Continues to move about in bed, moving head and legs but not opening eyes or following any directions. Continue with current plan of care.
--- NOTE | 2019-10-19 19:48 | NUR ---
ADMITTED ON 10/10/2019 FROM [facility] WITH HYPOTENSION. INTUBATED IN OUR ER. DR PAYNE TOOK THE PATIENT TO THE WELDING MACHINE OPERATOR SUBMERGED ARC AND DRAINED PERICARDIAL FLUID. [place] PATIENT. WE HAVE PERMISSION TO KEEP THE PATIENT HERE. PERICARDIAL WINDOW AND TRANSFER TO [place] [facility]. DAILY DIALYSIS FOR 4 DAYS. PLAN FOR DIALYSIS TOMORROW. PATIENT MOVES HEAD AND ARMS. HAS NOT WOKEN UP YET. OFF SEDATION SINCE 10/15/2019. MARGOT. + COUGH AND GAG. ORAL CARE DONE. OGT WITH NEPRO AT 40CC/HR. NO RESIDUAL. KAMRYN AREA CLEAN AND DRY. NO FEVER. NSR WITH BBB. SBP STABLE. ON ASSIST CONTROL VENTILATION AC OF 14 BREATHING 16. RIGHT FLANK SKIN TEAR. WOUND CARE INVOLVED. RIGHT FEMORAL CENTRAL LINE. NO IVF RUNNING. DIALYSIS THROUGH A RIGHT UPPER ARM FISTULA. AREA IS WRAPPED WITH COBAN/4X4.ALL PULSES WEAK.
--- NOTE | 2019-10-19 20:52 | NUR ---
PHARMACY NOTIFIED OF EXTRA ZOSYN DOSE POST DIALYSIS
--- NOTE | 2019-10-19 21:15 | NUR ---
ALL PORTS OF RIGHT FEMORAL CENTRAL LINE DRESSING FLUSHED WITH 10CC OF NORMAL SALINE EACH. ALL PORTS OPEN. DRESSING ON CENTRAL LINE IS 10/15/2019. CHEST: PREVIOUS PUNCTURE WOUND, DRESSING IS CLEAN AND DRY.
--- NOTE | 2019-10-19 22:00 | NUR ---
REPOSITIONED PATIENT TO BACK. KAMRYN AREA CLEAN AND DRY. MARGOT. OPENS EYES LOOKS AROUND. DOES NOT FOLLOW COMMANDS. LIFTS ARMS, BENDS ARMS. MOVES LEGS SLIGHTLY. PULLED UP IN BED. HEELS OFF BED. SCDS REMOVED TO VISUALIZE LEGS. HYPERPIGMENTATION ON BOTH LOWER LEGS. SBP STABLE. BBB. BORDERLINE FIRST DEGREE AV BLOCK. NORMAL TEMPERATURE.
[2019-10-20] VITALS (66 sets, daily range): BP systolic 87–151; BP diastolic 41–83
--- NOTE | 2019-10-20 | NUR ---
NSR WITH BORDERLINE FIRST DEGREE AV BLOCK WITH A BBB. NO ECTOPY. WAKES UP, LOOKS AROUND. MOVES ARMS BUT DOESN'T PULL ON THINGS. ABDOMEN SOFT. NO BM YET. ANURIC. RIGHT UPPER ARM FISTULA DRESSING DRY.
--- NOTE | 2019-10-20 02:00 | NUR ---
VSS. COARSE COUGH. NSR WITH BORDERLINE FIRST DEGREE AV BLOCK WITH A BBB. OPENS EYES. + STRONG COUGH AND GAG. SBP STABLE.
[2019-10-20 04:03] LABS: Basophils # (auto) 0 uL; Basophils % (auto) 1.1 % (0.0-2.0); Eosinophils # (auto) 0.2 uL; Hematocrit 30.6 % (41.0-53.0); Lymphocytes # (auto) 0.6 uL; Lymphocytes % (auto) 16.2 % (10.0-50.0); Mean Corpuscular Hemoglobin 30.6 pg (28.0-32.0); Mean Corpuscular Hgb Conc. 32.6 g/dL (32.0-36.0); Mean Corpuscular Volume 93.9 fL (80.0-100.0); Monocytes # (auto) 0.6 uL; Monocytes % (auto) 16.6 % (0.0-12.0); Neutrophils # (auto) 2.4 uL; Neutrophils % (auto) 61.1 % (37.0-80.0); Nucleated Red Blood Cells % 0.1 %; Platelet Count (auto) 102 10^3/uL (140-450); Red Blood Cells 3.26 10^6/uL (4.5-5.90); Red Cell Distribution Width 17.5 % (11.8-14.3); White Blood Cell 3.9 10^3/uL (4.4-10.8)
[2019-10-20 04:12] LABS: Potassium 3.4 mmol/L (3.5-5.1)
[2019-10-20 04:16] LABS: BUN/Creatinine Ratio 4.2; Calcium 9.2 mg/dL (8.5-10.1)
--- NOTE | 2019-10-20 05:30 | NUR ---
CHG BATH. COMPLETE LINEN CHANGE. MUCH MORE AWAKE. BILATERAL MITTENS ON
[2019-10-20] MEDS: DexMEDEtomidine 400 MCG in D5W 5% 96 ML IV SCH (06:22)
[2019-10-20] MEDS ORDERED: SODIUM CHL 0.9% 1000 ML BAG XX ONE (07:00)
--- NOTE | 2019-10-20 07:25 | NUR ---
OPENING NOTE Report received from Hailey DEL TORO, care assumed. Initial physical assessment performed. Patient is intubated on ventilator, tolerating well. Patient opens eyes spontaneously, tracks and follows simple commands. Pulses palpable bilaterally. SCD's on bilateral lower extremities. Lungs coarse anteriorly. Abdomen is soft, nontender. OGT patent, tube feedings held for possible cpap trail today. Right upper arm fistula present, bruit and thrill noted. See skin/wound assessment. Patient repositioned in bed, heels elevated. Bed locked in lowest position, alarms in place. Will continue to monitor.
--- NOTE | 2019-10-20 07:33 | NUR ---
DIALYSIS Dialysis nurse at bedside.
--- NOTE | 2019-10-20 08:00 | NUR ---
MD VISIT: PCP at bedside. MD reviewing medical chart. No new orders obtained at this time. Will notify MD of any changes from baseline.
--- NOTE | 2019-10-20 08:30 | NUR ---
SPOKE TO DR POWELL ON THE PHONE AWARE OF AM ABG RESULTS. NO NEW ORDERS RECEIVED.
[2019-10-20] MEDS: NOREPINEPHRINE 8 MG/250ML KIT 250 ML IV SCH (09:02)
--- NOTE | 2019-10-20 09:18 | NUR ---
ROUNDING NOTE Patient resting in bed, tolerating dialysis well. Vital stable at this time. Patient has strong productive cough, suctioned through ETT. Thick creamy secretions noted. Oxygen saturation 100%. No distress noted. Will continue to monitor.
[2019-10-20] MEDS: METOPROLOL SUCCINATE XL 50 MG TAB PO SCH (10:00)
--- NOTE | 2019-10-20 10:11 | NUR ---
VISITORS Patient son and at bedside. Updated on plan of care. All questions and concerns addressed.
--- NOTE | 2019-10-20 10:19 | NUR ---
DIALYSIS COMPLETE 2.5 L removed. Patient tolerated well, vital signs stable.
[2019-10-20] MEDS: ASPirin 81 mg TAB PO SCH (10:21)
[2019-10-20] MEDS: PIPERACILLIN-TAZOB 2.25GM 50 ML IV SCH (10:21)
[2019-10-20] MEDS: FAMOTIDINE 20 MG TAB PO SCH (10:21)
[2019-10-20] MEDS: CLOPIDOGREL BISULFATE 75 MG TAB PO SCH (10:21)
--- NOTE | 2019-10-20 10:27 | NUR ---
CPAP TRIAL INITIATED AT THIS TIME, PS 8 PEEP 5. 30% FIO2. SPO2 99%. APPROPRIATE ALARMS SET AND AUDIBLE. RN AT BEDSIDE AND AWARE OF CPAP TRIAL.
--- NOTE | 2019-10-20 11:11 | NUR ---
CPAP TRIAL FAILED AT THIS TIME, PT IN RESPIRATORY DISTRESS WITH RR IN 50'S, PT NOT VENTILATING. PT HAS COPIOUS THICK MUCUS PLUGS. PT SWITCHED BACK TO AC RR 14, VT 550, PEEP, 40% FIO2. PT OFF SEDATION. RN AT BEDSIDE.
--- NOTE | 2019-10-20 11:17 | NUR ---
RESPIRATORY STATUS Patient back on AC mode. Patient respiratory rate 18, oxygen saturation 98%, heart rate 98. No signs of pain or distress noted at this time. Towards the end of the Cpap trial patient had increase in agitation, heart rate increased to 120's, oxygen saturation 85% with respiratory rate in the 50's. Patient was unable to calm down with verbal instructions. RT changed patient back to AC mode. Will attempt another Cpap trial this afternoon.
--- NOTE | 2019-10-20 12:42 | NUR ---
MD VISIT at bedside. aware of cpap trial attempt. filling out transfer paperwork for [facility].
--- NOTE | 2019-10-20 13:04 | NUR ---
1300 10/20/19 Faxed transfer order to [facility] along with contact information for Dr. Kingston Cordova. Faxed Notice Regarding Post Stabilization to [facility] [phone].
--- NOTE | 2019-10-20 13:26 | NUR ---
MD VISIT: PULMONOLOGY at bedside assessing patient. MD aware of Cpap trial attempt earlier. MD would like to attempt another cpap trial. RT notified.
--- NOTE | 2019-10-20 13:50 | NUR ---
cpap trial initiated; ps 8, peep 5 , 30% fio2. pt appears drowsy but is spontaneously breathing rr 18-25. no respiratory distress at this time.
--- NOTE | 2019-10-20 14:06 | NUR ---
MD VISIT: NEPHROLOGY at bedside. MD reviewing chart.
--- NOTE | 2019-10-20 14:39 | NUR ---
WEANING PARAMETERS ON CPAP PS8, PEEP5, 30% FIO2: NIF -4 VC 500ml RSBI 26 LEAK TEST 197 ABG OBTAINED; RESULTS IN [employer]. RESULTS READ TO DR POWELL. PER , KEEP PT ON CPAP AND HE WILL BE BACK TO REEVALUATE PT.
[2019-10-20] MEDS: PROPOFOL 100 ML IV SCH (14:48)
--- NOTE | 2019-10-20 14:49 | NUR ---
[facility] TRANSFER Spoke with patient regarding possible transfer to [facility]. Patient stated she already spoke with Allison pillowcase turner and a pillowcase turner at [facility] regarding reason for transfer. Patient would prefer to finish treatment and care at [facility] and has permission from [facility] to stay.
--- NOTE | 2019-10-20 15:20 | NUR ---
LINEN Partial linen change performed. Patient had small formed bowel movement. Isatu-care area cleansed with warm water and soap. Skin re-assessment complete. Patient repositioned on side with HOB greater than 30 degrees. Patient tolerated activity well. No distress or pain noted. Bed locked in lowest position, alarms in place. Will continue to monitor.
--- NOTE | 2019-10-20 15:36 | NUR ---
SECOND NIF OBTAINED -35
--- NOTE | 2019-10-20 15:47 | NUR ---
PT EXTUBATED AT THIS TIME PER DR POWELL ORDERS. NO STRIDOR NOTED. PT ON 40% COOL MIST AEROSOL, SPO2 98%.
--- NOTE | 2019-10-20 15:47 | NUR ---
PATIENT EXTUBATED BY RT Extubation order received by , RT at bedside. Patient extubated with no problems, patient tolerated well. Patient placed on 40% cool mist mask. Oxygen sats prior to extubation 98%, following extubation 100%. Continue to monitor.
--- NOTE | 2019-10-20 16:33 | NUR ---
1638 10/20/19 Contacted reinsurance analyst Darnell at [facility] and requested to speak with porter sample case Atiya (no return call from earlier request). Furniture Delivery Driver Atiya not available at this time, but Darnell did verify that they did receive the transfer order and they are working on it.
--- NOTE | 2019-10-20 18:00 | NUR ---
OXYGENATION Patient repositioned in bed. Patient placed on 3 L nasal cannula. Oxygen saturation 98%. No signs of pain or distress noted at this time. Bed locked in lowest position with call light within reach.
[2019-10-20] MEDS: ACETYLCYSTEINE 10 %(100MG/ML) SOL 4ML NEB SCH (18:33)
[2019-10-20] MEDS: ALBUTEROL SULF 2.5 MG/0.5ML(0.5%) NEB SOLN NEB SCH (18:33)
--- NOTE | 2019-10-20 19:25 | NUR ---
REPORT Report given to Aravind DEL TORO, care endorsed.
--- NOTE | 2019-10-20 19:30 | NUR ---
Opening Shift Note Assumed care of patient in room 112. Patient is awake and partially alert as is able to recall name, location and situation. Using 3 L nc. Complete physical assessment charted in interventions. No S/S of distress/SOB or pain. Instructed on POC and to call for assist PRN. Will continue to monitor for changes Q1hr and PRN.
--- NOTE | 2019-10-20 19:55 | NUR ---
Bowel movement changed gown and pads underneath to remove soiled items.
--- NOTE | 2019-10-20 20:30 | NUR ---
Ice chips patient was sat upright high fowlers to avoid aspiration. Had a few ice chips. Will try again later tonight for more.
[2019-10-20] MEDS ORDERED: EPOETIN ALFA 10,000 UNIT/1 ML VIAL SC ONE (21:00)
--- NOTE | 2019-10-20 23:29 | NUR ---
Patient resting In bed at lowest setting. Call light within reach.
[2019-10-21] VITALS (10 sets, daily range): BP systolic 104–134; BP diastolic 54–66
--- NOTE | 2019-10-21 00:07 | NUR ---
second bm gown, linen and pads changed.
[2019-10-21] MEDS: ACETYLCYSTEINE 10 %(100MG/ML) SOL 4ML NEB SCH ×5 (00:08→23:51)
[2019-10-21] MEDS: ALBUTEROL SULF 2.5 MG/0.5ML(0.5%) NEB SOLN NEB SCH ×5 (00:08→23:51)
[2019-10-21 03:49] LABS: Basophils # (auto) 0.1 uL; Basophils % (auto) 1.1 % (0.0-2.0); Eosinophils # (auto) 0.3 uL; Eosinophils % (auto) 6.6 % (0.0-7.0); Hematocrit 31.9 % (41.0-53.0); Hemoglobin 10.2 g/dL (13.5-17.5); Lymphocytes # (auto) 0.7 uL; Lymphocytes % (auto) 13.8 % (10.0-50.0); Mean Corpuscular Hgb Conc. 31.8 g/dL (32.0-36.0); Mean Corpuscular Volume 94.2 fL (80.0-100.0); Monocytes # (auto) 0.8 uL; Neutrophils # (auto) 3.3 uL; Neutrophils % (auto) 63.5 % (37.0-80.0); Nucleated Red Blood Cells % 0.1 %; Platelet Count (auto) 114 10^3/uL (140-450); Red Blood Cells 3.39 10^6/uL (4.5-5.90); Red Cell Distribution Width 18.1 % (11.8-14.3); White Blood Cell 5.2 10^3/uL (4.4-10.8)
[2019-10-21 04:09] LABS: Potassium 3.6 mmol/L (3.5-5.1)
[2019-10-21 04:16] LABS: Albumin 2.8 g/dL (3.4-5.0); Bilirubin, Total 1.2 mg/dL (0.2-1.0); Calcium 9.4 mg/dL (8.5-10.1); Total Protein 6.8 g/dL (6.4-8.2)
--- NOTE | 2019-10-21 05:54 | NUR ---
Third BM formed. Patient cleaned with new beds pads underneath.
--- NOTE | 2019-10-21 07:30 | NUR ---
Opening Shift Note Assumed care of patient, awake and oriented x2, re-oriented to time and place. No S/S of distress/SOB or pain. Patient saturation 98% at 3LPM oxygen via nasal cannula. See interventions for complete assessment. Bed locked on low position, side rails up x2, bed alarms on at all times, call edwards within reach, instructed on POC and to call for assist PRN, will continue to monitor for changes Q1hr and PRN.
[2019-10-21] MEDS: CALCITRIOL 1 MCG/ML AMPULE IV SCH (09:17)
--- NOTE | 2019-10-21 09:45 | NUR ---
Dr Cordova at bedside, updated on patient's status. Patient seen and examined. Will carry out new orders.
[2019-10-21] MEDS: METOPROLOL SUCCINATE XL 50 MG TAB PO SCH (10:00)
--- NOTE | 2019-10-21 10:00 | NUR ---
Patient's Carrie at bedside, updated on patient's status and POC. Carrie verbalized understanding. All questions and concerns addressed.
--- NOTE | 2019-10-21 10:56 | NUR ---
PO medications held, awaiting swallow eval.
--- NOTE | 2019-10-21 11:25 | NUR ---
Patient dangling on side of the bed with Liam PT, fall precautions in placed. Patient tolerated well.
--- NOTE | 2019-10-21 11:41 | NUR ---
1130 10/21/19 Contacted credit collections analyst Concepción at [facility] and requested that authorization be provided for patient's continued stay. I also requested to speak with piano case and bench assembler regarding why patient was not transferred yesterday as requested. I requested that Concepción have piano case and bench assembler Atiya return my call regarding the authorization request. I faxed Cardiology progress notes from 10/19 to [facility] per their request.
--- NOTE | 2019-10-21 15:34 | NUR ---
Dr Atkins at bedside, updated on patient's status. Patient seen and examined. No new orders at this time.
[2019-10-21] MEDS: ASPirin 81 mg TAB PO SCH (15:46)
[2019-10-21] MEDS: FAMOTIDINE 20 MG TAB PO SCH (15:46)
[2019-10-21] MEDS: CLOPIDOGREL BISULFATE 75 MG TAB PO SCH (15:46)
--- NOTE | 2019-10-21 16:02 | NUR ---
SWALLOW EVALUATED. PATIENT HAS TEETH. ABLE TO TOLERATE PUREE DIET TEXTURE WITH NECTAR THICKENED LIQUIDS WITH NO OVERT SIGNS OR SYMPTOMS OF ASPIRATION. SOME COUGHING ON TRIAL OF THIN LIQUIDS. NURSING NOTIFIED.
--- NOTE | 2019-10-21 17:01 | NUR ---
Gave the patient a sponge bath
--- NOTE | 2019-10-21 19:30 | NUR ---
Opening Shift Note Assumed care of patient, awake and alert. No S/S of distress/SOB or pain. Instructed on POC and to call for assist PRN, will continue to monitor for changes.
--- NOTE | 2019-10-21 22:04 | NUR ---
Pt resting and appears to be asleep. Pulled up in bed and repositioned earlier in shift. Will continue to monitor.
[2019-10-22 03:57] VITALS: BP 154/81
[2019-10-22] MEDS: ACETYLCYSTEINE 10 %(100MG/ML) SOL 4ML NEB SCH ×3 (05:37→19:01)
[2019-10-22] MEDS: ALBUTEROL SULF 2.5 MG/0.5ML(0.5%) NEB SOLN NEB SCH ×3 (05:37→19:01)
--- NOTE | 2019-10-22 07:40 | NUR ---
Opening Shift Note Assumed care of patient, awake and alert, still sleepy a little bit, patient able to tell me his name, , time, follow direction, right arm mild weak due to swollen, AV shunt at right arm. No S/S of distress/SOB or pain noted, on O2 NC 2 LPM. Instructed on POC and to call for assist PRN, will continue to monitor for changes Q1hr and PRN. Mouth care provided, patient reposition, sitting up with high mendoza position, prepare for breakfast.
--- NOTE | 2019-10-22 07:55 | NUR ---
Dialysis nurse at the bedside.
[2019-10-22 08:00] VITALS: BP 126/65
--- NOTE | 2019-10-22 08:00 | NUR ---
Dr. Cordova at the bedside, seen patient at this time, plan of are discussed with patient, received order to transfer to Tele after HD done this morning. Patient made aware. If patient tolerated Pureed diet well, able to step up his diet to Cardiac diet.
[2019-10-22] MEDS ORDERED: SODIUM CHL 0.9% 1000 ML BAG XX ONE (08:15)
--- NOTE | 2019-10-22 08:35 | NUR ---
Dr. Mcneil at the bedside.
[2019-10-22] MEDS: CLOPIDOGREL BISULFATE 75 MG TAB PO SCH (08:53)
[2019-10-22] MEDS: FAMOTIDINE 20 MG TAB PO SCH (08:53)
[2019-10-22] MEDS: ASPirin 81 mg TAB PO SCH (08:54)
[2019-10-22] MEDS: METOPROLOL SUCCINATE XL 50 MG TAB PO SCH (09:17)
--- NOTE | 2019-10-22 09:18 | NUR ---
Patient sitting up on the bed, helping patient with feeding his breakfast, patient had around 85 %, no coughing noted, able to drink water, no aspiration noted.
--- NOTE | 2019-10-22 09:30 | NUR ---
Hold Metoprolol due to Dialysis this morning.
--- NOTE | 2019-10-22 09:55 | NUR ---
Tried Room air, O2 saturation 92-93%, on O2 NC 2 LPM at this time, will continue to monitor and care.
--- NOTE | 2019-10-22 10:18 | NUR ---
Pt is receiving dialysis, hold PT, will check back later. Addendum: 10/22/19 at 1021 by Erlinda Diane PT Amended: Links added.
[2019-10-22] MEDS ORDERED: ALBUMIN 25% 100 ML IV ONE ×2 (10:30→10:33)
--- NOTE | 2019-10-22 10:40 | NUR ---
Dialysis nurse gave Albumin during dialysis due to Low BP. Will continue to monitor and care.
--- NOTE | 2019-10-22 11:30 | NUR ---
Total fluid removed today 960 ml per Dialysis. HR 80-85/min, SBP 90-120 mmHg, O2 saturation 99-100% with O2 NC 2 LPM. RR 14-18 /min, no fever noted, will monitor for bleeding at AV shunt at right arm.
[2019-10-22 12:00] VITALS: BP 101/50
--- NOTE | 2019-10-22 12:30 | NUR ---
Dr. Blue seen patient at he bedside.
--- NOTE | 2019-10-22 13:15 | NUR ---
His at the bedside. helping with feeding patient with his Lunch.
--- NOTE | 2019-10-22 14:00 | NUR ---
Patient had Lunch around 50 %. No N/V noted.
--- NOTE | 2019-10-22 17:20 | NUR ---
[facility] pt transferred to floor [facility] transferred to 216 via Hospital bed on complex manager (Tele 59) and portable 02. All patient medications and personal belongings transferred with patient to receiving floor. Patient care transferred to Uyen DEL TORO.
--- NOTE | 2019-10-22 18:00 | NUR ---
PT CAME TO FLOOR FROM [facility], NO DISTRESS NOTED. VITALS: BP 98/55, RR 20, 02 98, 98.4, HR 80. PT REPORTS NO PAIN AT THIS TIME, WILL CONTINUE TO MONITOR.
--- NOTE | 2019-10-22 20:15 | NUR ---
Opening Shift Note: A&Ox3, periods of confusion present. Currently on 2LO2 via NC; patient does not wear at home; pain level 0/10; and currently bedrest. Bed locked in lowest position, side rails up x2, call light within reach, and bed alarm on for patient safety. IV is a right femoral triple lumen central line inserted on 10/12/19. Patient receives dialysis; RUE fistula; last dialysis 10/22/19. Skin: left flank dried blister present; previous pericardial drain chest. Patient is s/p pericardialcentesis on 10/10/19; s/p RHC/LHC on 10/10/19; intubation on 10/10/19; extubation 10/20/19; transfer to [facility] on 10/21/19; transfer to telemetry on 10/22/19. POC discussed with patient but he is unable to fully understand related to fatigue. Will continue to round and reposition prn.
[2019-10-22 21:41] VITALS: BP 101/50
[2019-10-22 22:00] VITALS: BP 113/59
[2019-10-23] MEDS: ALBUTEROL SULF 2.5 MG/0.5ML(0.5%) NEB SOLN NEB SCH ×4 (00:27→19:00)
[2019-10-23] MEDS: ACETYLCYSTEINE 10 %(100MG/ML) SOL 4ML NEB SCH ×4 (00:27→19:00)
[2019-10-23 05:00] VITALS: BP 141/72
--- NOTE | 2019-10-23 07:30 | NUR ---
Opening Shift Note RECEIVED REPORT FROM NOC RN. Assumed care of patient, awake and alert. PATIENT ON OXYGEN AT 2 LPM VIA NASAL CANNULA WITH no S/S of distress/SOB or pain. BED IN LOWEST, LOCKED POSITION WITH SIDERAILS UP x2 AND CALL LIGHT WITHIN REACH. Instructed on POC and to call for assist PRN, will continue to monitor for changes Q1hr and PRN.
[2019-10-23 09:00] VITALS: BP 134/76
--- NOTE | 2019-10-23 09:13 | NUR ---
DR. Myranda OLIVIER AT BEDSIDE.
[2019-10-23] MEDS: CALCITRIOL 1 MCG/ML AMPULE IV SCH (10:00)
[2019-10-23] MEDS: CLOPIDOGREL BISULFATE 75 MG TAB PO SCH (10:35)
[2019-10-23] MEDS: FAMOTIDINE 20 MG TAB PO SCH (10:35)
[2019-10-23] MEDS: ASPirin 81 mg TAB PO SCH (10:35)
[2019-10-23] MEDS: METOPROLOL SUCCINATE XL 50 MG TAB PO SCH (10:36)
[2019-10-23 13:00] VITALS: BP 130/69
[2019-10-23 17:22] VITALS: BP 111/64
--- NOTE | 2019-10-23 19:03 | NUR ---
RT NOTE PT WAS SEEN BY RT OFR [address]. PT TOLERATES WELL VIA M ASK. NO ADVERSE REACTION NOTED. CONT ORDERED Addendum: 10/23/19 at 1904 by Tracey Hoang RT Amended: Links added.
--- NOTE | 2019-10-23 19:40 | NUR ---
Opening Shift Note Assumed care of patient, awake and alert, cooperative to care, with episode of confusion. No S/S of distress/SOB or pain. Instructed on POC and to call for assist PRN, patient verbalized understanding at this time. Bed in lowest and locked position, bed alarm on, will continue to monitor for changes Q1hr and PRN.
[2019-10-23 22:00] VITALS: BP 159/84
[2019-10-24] MEDS: ALBUTEROL SULF 2.5 MG/0.5ML(0.5%) NEB SOLN NEB SCH ×4 (00:19→18:22)
[2019-10-24] MEDS: ACETYLCYSTEINE 10 %(100MG/ML) SOL 4ML NEB SCH ×4 (00:19→18:22)
--- NOTE | 2019-10-24 02:10 | NUR ---
Patient tried to get out of bed, patient confused at this time. Reoriented to time, place and situation. Maintained bed alarm on, will continue to monitor
--- NOTE | 2019-10-24 03:45 | NUR ---
Patient attempted to get out of the bed again. Reorientation done. Bed alarm in place. SHASHA De León made aware of the situation. Ruth (RAY castañeda) in the room to sit with the patient temporarily, will continue to monitor
[2019-10-24 05:12] VITALS: BP 145/70
--- NOTE | 2019-10-24 07:00 | NUR ---
Patient attempted to get out of the bed again, oriented x 2-3 at this time. Reorientation done. Informed CN Leslie about the situation and the need of a sitter. Will endorse to kathy RN
[2019-10-24] MEDS: FAMOTIDINE 20 MG TAB PO SCH (08:55)
[2019-10-24] MEDS: ASPirin 81 mg TAB PO SCH (08:55)
[2019-10-24] MEDS: CLOPIDOGREL BISULFATE 75 MG TAB PO SCH (08:55)
[2019-10-24] MEDS: METOPROLOL SUCCINATE XL 50 MG TAB PO SCH (08:57)
--- NOTE | 2019-10-24 11:30 | NUR ---
FAMILY PATIENT'S AT BED SIDE, VERY CONCERN REGARDING DIALYSIS , MADE AWARE THAT I AM WAITING FOR THE NEPHROLOGY TO COME OVER AND WRITE DOWN ORDERS
[2019-10-24 13:51] VITALS: BP 140/79
--- NOTE | 2019-10-24 15:00 | NUR ---
PATIENT'S REMAIN AT BED SIDE
--- NOTE | 2019-10-24 16:20 | NUR ---
PT KEPT DRY AND CLEAN AT ALL TIMES, SITTER AT BED SIDE
[2019-10-24 16:31] VITALS: BP 139/80
--- NOTE | 2019-10-24 18:51 | NUR ---
P CONTINUE STABLE, CONTINUE MONITORING
[2019-10-24 20:41] VITALS: BP 126/70
[2019-10-25] MEDS: ALBUTEROL SULF 2.5 MG/0.5ML(0.5%) NEB SOLN NEB SCH ×4 (00:14→18:14)
[2019-10-25] MEDS: ACETYLCYSTEINE 10 %(100MG/ML) SOL 4ML NEB SCH ×4 (00:14→18:14)
[2019-10-25 04:02] VITALS: BP 134/73
[2019-10-25 06:09] LABS: Basophils # (auto) 0.1 uL; Basophils % (auto) 1.4 % (0.0-2.0); Eosinophils # (auto) 0.4 uL; Eosinophils % (auto) 9.4 % (0.0-7.0); Hematocrit 31.5 % (41.0-53.0); Hemoglobin 10.3 g/dL (13.5-17.5); Lymphocytes # (auto) 0.6 uL; Lymphocytes % (auto) 15.3 % (10.0-50.0); Mean Corpuscular Hemoglobin 30.4 pg (28.0-32.0); Mean Corpuscular Hgb Conc. 32.7 g/dL (32.0-36.0); Mean Corpuscular Volume 93.1 fL (80.0-100.0); Monocytes # (auto) 0.5 uL; Monocytes % (auto) 11.3 % (0.0-12.0); Neutrophils # (auto) 2.6 uL; Neutrophils % (auto) 62.6 % (37.0-80.0); Nucleated Red Blood Cells % 0.1 %; Platelet Count (auto) 111 10^3/uL (140-450); Red Blood Cells 3.38 10^6/uL (4.5-5.90); Red Cell Distribution Width 17.6 % (11.8-14.3); White Blood Cell 4.1 10^3/uL (4.4-10.8)
[2019-10-25 06:26] LABS: Potassium 4.3 mmol/L (3.5-5.1)
[2019-10-25 06:36] LABS: Albumin 2.8 g/dL (3.4-5.0); BUN/Creatinine Ratio 4.5; Bilirubin, Total 0.8 mg/dL (0.2-1.0); Calcium 9.6 mg/dL (8.5-10.1); Total Protein 6.6 g/dL (6.4-8.2)
--- NOTE | 2019-10-25 06:57 | NUR ---
Closing Note patient resting in bed with oxygen on, even and unlabored respirations, no s/s of distress. Bed low locked position with side rails up x 2 and call light within reach, sitter at bedside. Endorsed care to day shift RN.
--- NOTE | 2019-10-25 07:20 | NUR ---
Respiratory note: AFTER 15 MINS OF MONITORING PT SPO2 LEVELS STOOD ABOVE 95% ON RA. UNABLE TO QUALIFY PT FOR HOME O2 AT THIS TIME. ABG NOT DRAWN AT THIS TIME. WILL INFORM RN.
--- NOTE | 2019-10-25 07:30 | NUR ---
RECEIVED REPORT FROM NIGHT NURSE. PATIENT RESTING IN BED, NO DISTRESS NOTED. SITTER AT BEDSIDE. WILL CONTINUE TO MONITOR.
[2019-10-25] MEDS ORDERED: SODIUM CHL 0.9% 1000 ML BAG XX ONE (08:45)
--- NOTE | 2019-10-25 08:56 | NUR ---
SPOKE WITH PATIENT'S , TAHIR. SHE STATED THAT SHE WOULD BE OPEN TO DISCUSSING SNF PLACEMENT WITH COUNTY ENGINEER. DOCTOR SOY NOTIFIED.
[2019-10-25 09:00] VITALS: BP 134/75
[2019-10-25] MEDS: ASPirin 81 mg TAB PO SCH (09:28)
[2019-10-25] MEDS: CALCITRIOL 1 MCG/ML AMPULE IV SCH (09:28)
[2019-10-25] MEDS: FAMOTIDINE 20 MG TAB PO SCH (09:28)
[2019-10-25] MEDS: METOPROLOL SUCCINATE XL 50 MG TAB PO SCH (09:28)
[2019-10-25] MEDS: CLOPIDOGREL BISULFATE 75 MG TAB PO SCH (09:28)
--- NOTE | 2019-10-25 12:34 | NUR ---
re-assessment Per consult SNF placement for rehab. Per Carrie patients she agrees to SNF for rehab. Jaspreet HAZEL to work on SNF. Addendum: 10/26/19 at 0835 by Bertha Abrams Amended: Links added.
--- NOTE | 2019-10-25 12:58 | NUR ---
1255 10/25/19 Contacted Bristle Machine Operator Britt at [facility] and requested that authorization be provided for patient's continued stay. Per Britt she will have to get back to me regarding auth from 10/22 forward. I faxed [facility] SNF referral form, PT notes, H&P, medication list, MD progress notes to [facility] per her request.
[2019-10-25 13:00] VITALS: BP 129/66
--- NOTE | 2019-10-25 15:41 | NUR ---
1530 10/25/19 Contacted business planning analyst Oma at [facility] regarding SNF placement. Per Oma they are working on SNF placement but have not found an accepting facility yet. Per Oma we will continue to have inpatient authorization while they are looking for SNF placement-she will have updated authorization faxed over. I spoke with patient's Carrie, she stated that she does want SNF placement, she does not feel like patient is ready to come home with home health-he needs to get stronger. I let her know that [facility] was working on the SNF placement, that per them it would not be happening today-that I would contact her tomorrow with an update after I spoke with [facility]. Per Oma at [facility] they would contact nurse's station when a SNF bed becomes available and they would arrange the transportation as well. I spoke with nurse Huggins and updated her as well.
--- NOTE | 2019-10-25 19:45 | NUR ---
Opening Shift Note Assumed care of patient, awake and alert, oriented to self and place, re-oriented to time and situation, patient follows direction. On oxygen at 3L via NC with even and unlabored respirations.IV right groin central line triple lumen intact and patent. Patient dangles at bedside. Patient stands with moderate assistance. Bed low locked position with side rails up x 2 and call light within reach, sitter at bedside. No S/S of distress/SOB or pain. Instructed on POC and to call for assist PRN, will continue to monitor for changes Q1hr and PRN.
[2019-10-25 22:06] VITALS: BP 137/69
[2019-10-26 01:35] VITALS: BP 137/69
[2019-10-26 05:15] VITALS: BP 152/76
[2019-10-26] MEDS: ALBUTEROL SULF 2.5 MG/0.5ML(0.5%) NEB SOLN NEB SCH ×4 (06:50→18:37)
[2019-10-26] MEDS: ACETYLCYSTEINE 10 %(100MG/ML) SOL 4ML NEB SCH ×4 (06:50→18:37)
--- NOTE | 2019-10-26 07:35 | NUR ---
Opening Shift Note Assumed care of patient, awake and alert. No S/S of distress/SOB or pain. Patient is on 3L Nasal cannula and tolerating well SPO2 100%. Instructed on POC and to call for assist PRN, will continue to monitor for changes Q1hr and PRN.
[2019-10-26 09:00] VITALS: BP 131/62
[2019-10-26] MEDS: FAMOTIDINE 20 MG TAB PO SCH (09:58)
[2019-10-26] MEDS: METOPROLOL SUCCINATE XL 50 MG TAB PO SCH (09:59)
[2019-10-26] MEDS: ASPirin 81 mg TAB PO SCH (09:59)
[2019-10-26] MEDS: CLOPIDOGREL BISULFATE 75 MG TAB PO SCH (09:59)
--- NOTE | 2019-10-26 10:24 | NUR ---
1020 10/26/19 Contacted Border Machine Operator Britt at [facility] and requested that authorization be provided for patient's continued stay. Per Britt-the stay is authorized until 1000 today, and will continue to be authorized until they find SNF placement-which they are working on. I let Britt know that the authorization that was faxed over is missing authorization for 10/23 and 10/24-she said she will look into it.
[2019-10-26 13:00] VITALS: BP 101/56
--- NOTE | 2019-10-26 16:21 | NUR ---
1615 10/26/19 Contacted noc analyst Oma at [facility] (she is working directly with Primary Substance Abuse Counselor Britt)to ask for an update on the status of the transfer to SNF. Per Oma they are still looking for a bed, there might be one available tomorrow in [place] (she said they spoke with and she would be okay with that).
--- NOTE | 2019-10-26 19:50 | NUR ---
Opening Shift Note Assumed care of patient, awake and alert, oriented to self and place, re-oriented to time and situation, patient follows direction. On oxygen at 3L via NC with even and unlabored respirations.IV right groin central line triple lumen intact and patent. Patient dangles at bedside. Bed low locked position with side rails up x 2 and call light within reach, sitter at bedside. No S/S of distress/SOB or pain. Diaylsis nurse at bedside. Instructed on POC and to call for assist PRN, will continue to monitor for changes Q1hr and PRN.
[2019-10-26 22:00] VITALS: BP 117/56
[2019-10-27] MEDS: ALBUTEROL SULF 2.5 MG/0.5ML(0.5%) NEB SOLN NEB SCH ×4 (00:12→18:34)
[2019-10-27] MEDS: ACETYLCYSTEINE 10 %(100MG/ML) SOL 4ML NEB SCH ×4 (00:12→18:32)
[2019-10-27 05:00] VITALS: BP 141/71
--- NOTE | 2019-10-27 08:02 | NUR ---
Opening Shift Note Assumed care of patient, awake and alert to self and place. No S/S of distress/SOB or pain. Instructed on POC and to call for assist PRN, will continue to monitor for changes Q1hr and PRN. Sitter at bedside.
--- NOTE | 2019-10-27 08:50 | NUR ---
Hospitalist darriusing Dr. Cordova at bedside.
[2019-10-27 09:00] VITALS: BP 136/69
[2019-10-27] MEDS: ASPirin 81 mg TAB PO SCH (09:45)
[2019-10-27] MEDS: FAMOTIDINE 20 MG TAB PO SCH (09:45)
[2019-10-27] MEDS: CALCITRIOL 1 MCG/ML AMPULE IV SCH (09:45)
[2019-10-27] MEDS: CLOPIDOGREL BISULFATE 75 MG TAB PO SCH (09:45)
[2019-10-27] MEDS: METOPROLOL SUCCINATE XL 50 MG TAB PO SCH (09:46)
--- NOTE | 2019-10-27 10:35 | NUR ---
1030 10/27/19 Contacted protection analyst Nora at [facility] and requested that authorization be provided for patient's continued stay. Per Nora, that authorization has to go through the assigned heel caser Rosanna and she is on the other line right now. I asked Nora about the SNF arrangements and she said I would need to speak with Rosanna about that as well. I requested that protection analyst Nora have Control Analyst Rosanna call me regarding the authorization request and SNF update.
--- NOTE | 2019-10-27 11:30 | NUR ---
Family members at bedside.
[2019-10-27 13:00] VITALS: BP 127/69
[2019-10-27 14:16] LABS: Hepatitis A Ab IgM Negative; Hepatitis B Core IgM Negative; Hepatitis B Surface Antigen Negative (Negative)
[2019-10-27 14:17] LABS: Hepatitis C Antibody Negative (Negative)
--- NOTE | 2019-10-27 14:30 | NUR ---
PT Physical therapist in to work with patient.
[2019-10-27 17:00] VITALS: BP 127/62
--- NOTE | 2019-10-27 19:40 | NUR ---
Opening Shift Note Assumed care of patient, awake and alert, oriented to self and place, re-oriented to time and situation, patient follows direction. On oxygen at 2L via NC with even and unlabored respirations. IV right groin central line triple lumen intact and patent. Patient dangles at bedside. Patient stands used BSC with moderate assistance. Bed low locked position with side rails up x 2 and call light within reach, sitter at bedside. No S/S of distress/SOB or pain. Instructed on POC and to call for assist PRN, will continue to monitor for changes Q1hr and PRN.
[2019-10-28] MEDS: ALBUTEROL SULF 2.5 MG/0.5ML(0.5%) NEB SOLN NEB SCH ×4 (00:02→19:31)
[2019-10-28] MEDS: ACETYLCYSTEINE 10 %(100MG/ML) SOL 4ML NEB SCH ×4 (00:02→19:31)
[2019-10-28 05:55] VITALS: BP 150/65
--- NOTE | 2019-10-28 06:55 | NUR ---
Closing Note patient resting in bed with oxygen on, even and unlabored respirations, no s/s of distress. Bed low locked position with side rails up x 2 and call light within reach, sitter at bedside.
--- NOTE | 2019-10-28 07:40 | NUR ---
Opening Shift Note Assumed care of patient, asleep but easily aroused. No S/S of distress/SOB or pain. Will follow up with instructions on POC and to call for assist PRN, will continue to monitor for changes Q1hr and PRN. Sitter in room for safety.
--- NOTE | 2019-10-28 07:55 | NUR ---
Dialysis Dialysis nurse at bedside.
[2019-10-28] MEDS ORDERED: SODIUM CHL 0.9% 1000 ML BAG XX ONE (08:15)
[2019-10-28 09:00] VITALS: BP 133/73
--- NOTE | 2019-10-28 09:45 | NUR ---
Hospitalist Rounding Dr. Cordova at bedside, family members in attendance.
[2019-10-28] MEDS: CLOPIDOGREL BISULFATE 75 MG TAB PO SCH (11:41)
[2019-10-28] MEDS: FAMOTIDINE 20 MG TAB PO SCH (11:41)
--- NOTE | 2019-10-28 11:41 | NUR ---
Dialysis completed BP 117/64, P.80 2.08 liters taken off. Morning medications administered. Patient in bed uncomplaining.
[2019-10-28] MEDS: ASPirin 81 mg TAB PO SCH (11:42)
[2019-10-28] MEDS: METOPROLOL SUCCINATE XL 50 MG TAB PO SCH (11:42)
--- NOTE | 2019-10-28 12:05 | NUR ---
WOUND CARE NOTE: Wound care in to see patient for skin integrity monitoring. Patient has been extubated and now in [facility]/telemetry unit. Patient is resting in bed in Rm. 216A. Patient is in no stated pain at this time and he appears to be in no pain using Hector Louis Faces Pain Scale. Patient is able to assist in turning and repositioning. His current Robert score is 18. Patient's skin tear to L flank has been resolved and now display intact skin. No pressure injury noted. Patient tolerated well. Patient's nurse and nurse chef's assistant at bedside cleaning patient and doing linen change. No further wound care monitoring needed at this time. RECOMMENDATION: Discontinue dressing change to L flank skin tear as it is now resolved per MD order, continue with skin/wound plan of care,reconsult for active wound, pressure injury, Robert score of 12 and below. Addendum: 10/28/19 at 1636 by Shaunna Forman RN Amended: Links added.
[2019-10-28 13:00] VITALS: BP 114/58
--- NOTE | 2019-10-28 13:14 | NUR ---
1300 10/28/19 Received call from Oma at [facility] requesting updated PT notes-faxed as requested. She said they are still looking for SNF placement, but are having trouble due to patient being on dialysis. She will call me with an update on the status of the SNF transfer.
--- NOTE | 2019-10-28 14:22 | NUR ---
Pt refused PT tx today citing fatigue. Addendum: 10/28/19 at 1430 by Liam Nixon DYEING MACHINE BACK TENDER Amended: Links added.
[2019-10-28 17:00] VITALS: BP 115/61
--- NOTE | 2019-10-28 19:15 | NUR ---
Opening Shift Note Received report from Maeve DEL TORO. Assumed care of patient, awake and alert, sitter at bedside for safety. No S/S of distress/SOB or pain. Instructed on POC and to call for assist PRN. Fall precaution measures in place, will continue to monitor for changes Q1hr and PRN.
--- NOTE | 2019-10-28 19:35 | NUR ---
RT NOTE PT WAS SEEN BY RT FOR HHN TX. PT TOLERATES WELL VIA MASK. NO ADVERSE REACTION NOTED. CONT ORDERED Addendum: 10/28/19 at 1935 by Tracey Hoang RT Amended: Links added.
[2019-10-28] MEDS ORDERED: EPOETIN ALFA 10,000 UNIT/1 ML VIAL SC ONE (21:00)
[2019-10-28] MEDS ORDERED: HYDROcodone-ACET 5/325MG TAB PO PRN (21:30)
[2019-10-28 21:35] VITALS: BP 143/71
[2019-10-29] MEDS: ALBUTEROL SULF 2.5 MG/0.5ML(0.5%) NEB SOLN NEB SCH ×2 (02:10→09:14)
[2019-10-29] MEDS: ACETYLCYSTEINE 10 %(100MG/ML) SOL 4ML NEB SCH ×2 (02:10→09:15)
--- NOTE | 2019-10-29 02:10 | NUR ---
RT NOTE PT WAS SEEN BY RT X 3 ATTEMPTS FOR SCHEDULED Q6 TX. PT IS ON BEDSIDE COMMODE WITH S/S OF SOB OR DISTRESS. MEDICATION HELD AT THIS TIME. CONT ORDERED
[2019-10-29 04:10] VITALS: BP 111/75
--- NOTE | 2019-10-29 07:47 | NUR ---
PT SITTING AT BEDSIDE, DANGLING FEET, NO DISTRESS NOTED. PT REPORTS NO PAIN AT THIS TIME. PT ON ROOM AIR AT THIS TIME. WILL CHECK PT [address] OLIVIER REQUEST IN 15 TO 20 MINUTES. CALLED TAHIR, , NO ANSWER, LEFT MESSAGE REQUESTING HER TO COME IN AND SPEAK WITH DR OLIVIER PER MD REQUEST. SITTER AT BEDSIDE. PT A AND 0 X 2 , PT KNOW NAME AND .
--- NOTE | 2019-10-29 08:09 | NUR ---
PT 02 LEVEL ON ROOM AIR IS 96%. DR OLIVIER NOTIFIED.
--- NOTE | 2019-10-29 09:14 | NUR ---
CALLED INDUSTRI[employer]GANIZATION MANAGER, NOTIFIED THEM PT IS GOING HOME AND NOT TO SNIFF. SS AWARE.
[2019-10-29] MEDS: CLOPIDOGREL BISULFATE 75 MG TAB PO SCH (09:40)
[2019-10-29] MEDS: ASPirin 81 mg TAB PO SCH (09:40)
[2019-10-29] MEDS: METOPROLOL SUCCINATE XL 50 MG TAB PO SCH (09:41)
[2019-10-29] MEDS: FAMOTIDINE 20 MG TAB PO SCH (09:41)
[2019-10-29] MEDS: CALCITRIOL 1 MCG/ML AMPULE IV SCH (09:42)
--- NOTE | 2019-10-29 10:41 | NUR ---
CALLED PT TAHIR AND LEFT MESSAGE NOTIFYING HER PATIENT IS READY TO GO HOME. AWAITING CALL BACK.
--- NOTE | 2019-10-29 11:23 | NUR ---
PT DOES NOT VOID, MAINTENANCE GROUNDSKEEPER REPORTS PT DID NOT HAVE A BM TODAY, NO FLUIDS GIVEN IV.
--- NOTE | 2019-10-29 11:24 | NUR ---
Discharge instructions given as ordered. Encourage to follow up with PMD at [facility] as instructed. All questions and concerns addressed. Patient verbalized understanding. Medication reconciliation form completed and copy given to patient and . IV removed with catheter intact, pressure dressing applied. Telemetry unit returned to ICU. Patient taken to vehicle via wheelchair with all personal belongings, accompanied by staff and . No distress noted at time of departure.
== END 2019-10-29 11:30 | disposition home or self-care (01) | DRG 870 ==
LOC: EDBD 08:21 → ER 08:27 → TELE 08:28 → ICU WEST 17:49 → DOU IN ICU 10-21 08:45 → TELE-CENTR 10-22 17:58
PROVIDERS: ADMIT Nurse Practitioner Acute Care; ATTEND Family Medicine
PROC: 5A1955Z Respiratory Ventilation, Greater than 96 Consecutive Hours (ICD-10-PCS; principal; 2019-10-10)
PROC: 0BH17EZ Insertion of Endotracheal Airway into Trachea, Via Natural or Artificial Opening (ICD-10-PCS; 2019-10-10)
PROC: 4A023N8 Measurement of Cardiac Sampling and Pressure, Bilateral, Percutaneous Approach (ICD-10-PCS; 2019-10-10)
PROC: B2111ZZ Fluoroscopy of Multiple Coronary Arteries using Low Osmolar Contrast (ICD-10-PCS; 2019-10-10)
PROC: B2151ZZ Fluoroscopy of Left Heart using Low Osmolar Contrast (ICD-10-PCS; 2019-10-10)
PROC: 4A033BC Measurement of Arterial Pressure, Coronary, Percutaneous Approach (ICD-10-PCS; 2019-10-10)
PROC: 0W9D30Z Drainage of Pericardial Cavity with Drainage Device, Percutaneous Approach (ICD-10-PCS; 2019-10-10)
PROC: 5A1D70Z Performance of Urinary Filtration, Intermittent, Less than 6 Hours Per Day (ICD-10-PCS; 2019-10-11)
PROC: 06HM33Z Insertion of Infusion Device into Right Femoral Vein, Percutaneous Approach (ICD-10-PCS; 2019-10-12)
PROC: B54BZZA Ultrasonography of Right Lower Extremity Veins, Guidance (ICD-10-PCS; 2019-10-12)
PROC: B54BZZA Ultrasonography of Right Lower Extremity Veins, Guidance (ICD-10-PCS; 2019-10-12)
PROC: 5A1D70Z Performance of Urinary Filtration, Intermittent, Less than 6 Hours Per Day (ICD-10-PCS; 2019-10-16)
PROC: 5A1D70Z Performance of Urinary Filtration, Intermittent, Less than 6 Hours Per Day (ICD-10-PCS; 2019-10-17)
PROC: 5A1D70Z Performance of Urinary Filtration, Intermittent, Less than 6 Hours Per Day (ICD-10-PCS; 2019-10-18)
PROC: 5A1D70Z Performance of Urinary Filtration, Intermittent, Less than 6 Hours Per Day (ICD-10-PCS; 2019-10-19)
PROC: 5A1D70Z Performance of Urinary Filtration, Intermittent, Less than 6 Hours Per Day (ICD-10-PCS; 2019-10-20)
PROC: 5A1D70Z Performance of Urinary Filtration, Intermittent, Less than 6 Hours Per Day (ICD-10-PCS; 2019-10-22)
PROC: 5A1D70Z Performance of Urinary Filtration, Intermittent, Less than 6 Hours Per Day (ICD-10-PCS; 2019-10-25)
PROC: 5A1D70Z Performance of Urinary Filtration, Intermittent, Less than 6 Hours Per Day (ICD-10-PCS; 2019-10-26)
PROC: 5A1D70Z Performance of Urinary Filtration, Intermittent, Less than 6 Hours Per Day (ICD-10-PCS; 2019-10-28)
DX: A41.9 Sepsis, unspecified organism (principal); J18.9 Pneumonia, unspecified organism; N18.6 End stage renal disease; G92 Toxic encephalopathy; I50.43 Acute on chronic combined systolic (congestive) and diastolic (congestive) heart failure; J96.01 Acute respiratory failure with hypoxia; I31.4 Cardiac tamponade; D68.9 Coagulation defect, unspecified; E44.0 Moderate protein-calorie malnutrition; T82.855A Stenosis of coronary artery stent, initial encounter; N25.81 Secondary hyperparathyroidism of renal origin; Z99.11 Dependence on respirator [ventilator] status; Z94.0 Kidney transplant status; Z99.2 Dependence on renal dialysis; R65.20 Severe sepsis without septic shock; E66.9 Obesity, unspecified; D63.1 Anemia in chronic kidney disease; I48.91 Unspecified atrial fibrillation; I35.0 Nonrheumatic aortic (valve) stenosis; E11.22 Type 2 diabetes mellitus with diabetic chronic kidney disease; E83.39 Other disorders of phosphorus metabolism; Y84.0 Cardiac catheterization as the cause of abnormal reaction of the patient, or of later complication, without mention of misadventure at the time of the procedure; E83.51 Hypocalcemia; E87.6 Hypokalemia; Z88.8 Allergy status to other drugs, medicaments and biological substances; Z95.2 Presence of prosthetic heart valve; Z78.1 Physical restraint status; Y92.89 Other specified places as the place of occurrence of the external cause; Z68.28 Body mass index [BMI] 28.0-28.9, adult; Z79.899 Other long term (current) drug therapy
CPT/HCPCS: 31500; 36415; 36600; 70450; 71045; 71250; 76930; 80048; 80053; 80074; 80076; 80202; 82140; 82306; 82533; 82805; 83036; 83605; 83735; 83970; 83986; 84100; 84443; 84484; 85025; 85610; 85652; 85730; 86141; 87040; 87070; 87077; 87081; 87186; 87205; 89051; 90935; 92610; 93005; 93306; 93460; 93571; 93930; 93971; 94002; 94003; 94640; 95819; 96361; 96365; 96375; 97110; 97116; 97530; 99152; 99153; 99291; A4565; A4618; C1751; G0378; J0330; J0610; J0636; J0696; J0885; J1642; J2001; J2250; J2405; J2543; J2704; J3430; J3490; J7060; P9047; Q9967

== ENCOUNTER → 2020-03-30 | Emergency (ER) | payer OTHER ==
[~2020-03-30] VITALS: Ht 170.2 cm; Wt 90.7 kg
[~2020-03-30] MED LIST: ALLO100T PO; AMIO100T3 OR; ASPI-543 PO; ATO40T PO; CINA30TA2 PO; CLOP75TA28 PO; FERR-7 PO; METO25TA5 PO; NIFE1TAB31 PO; PANT40TA2 PO
[2020-03-30 09:00] LABS: Basophils # (auto) 0.1 10 ^3/uL (0-0.2); Basophils % (auto) 1.1 % (0.0-2.0); Eosinophils # (auto) 0.1 10 ^3/uL (0-0.8); Lymphocytes # (auto) 1.1 10 ^3/uL (0.4-5.4); Monocytes # (auto) 0.6 10 ^3/uL (0-1.3); Neutrophils # (auto) 3.1 10 ^3/uL (1.6-8.6); Platelet Count (auto) 92 10^3/uL (140-450)
[2020-03-30 09:01] LABS: Eosinophils % (auto) 2.6 % (0.0-7.0); Hematocrit 36.9 % (41.0-53.0); Lymphocytes % (auto) 21.8 % (10.0-50.0); Mean Corpuscular Hemoglobin 33.1 pg (28.0-32.0); Mean Corpuscular Hgb Conc. 32.4 g/dL (32.0-36.0); Neutrophils % (auto) 62.5 % (37.0-80.0); Nucleated Red Blood Cells % 0.2 %; Potassium 4.6 mmol/L (3.5-5.1); Red Blood Cells 3.62 10^6/uL (4.5-5.90); Red Cell Distribution Width 15.1 % (11.8-14.3)
[2020-03-30 09:05] LABS: INR 1.07 (0.9-1.15); Partial Thromboplastin Time 22.6 sec (23.64-32.05)
[2020-03-30 09:06] LABS: Albumin 3.4 g/dL (3.4-5.0); BUN/Creatinine Ratio 6.7; Calcium 7.7 mg/dL (8.5-10.1)
[2020-03-30 09:21] LABS: Bilirubin, Total 0.7 mg/dL (0.2-1.0); Total Protein 7.5 g/dL (6.4-8.2)
[2020-03-30 11:50] VITALS: BP 157/65
== END | disposition home or self-care (01) ==
LOC: EDUNIT# 07:34 → ER 07:41 → EDBD 07:41
DX: I24.9 Acute ischemic heart disease, unspecified (principal); I12.0 Hypertensive chronic kidney disease with stage 5 chronic kidney disease or end stage renal disease; E11.22 Type 2 diabetes mellitus with diabetic chronic kidney disease; N18.6 End stage renal disease; Z99.2 Dependence on renal dialysis; Z88.6 Allergy status to analgesic agent; Z88.8 Allergy status to other drugs, medicaments and biological substances
CPT/HCPCS: 36415; 71045; 80053; 83880; 84484; 85025; 85610; 85730; 93005

== ENCOUNTER 2020-12-29 14:35 | Emergency (ER) | payer OTHER ==
[~2020-12-29] VITALS: Ht 167.6 cm; Wt 90.7 kg
[2020-12-29 15:36] LABS: Eosinophils # (auto) 0.1 10 ^3/uL (0-0.8); Hemoglobin 11.4 g/dL (13.5-17.5); Monocytes # (auto) 0.5 10 ^3/uL (0-1.3); Neutrophils # (auto) 2.8 10 ^3/uL (1.6-8.6); White Blood Cell 4.5 10^3/uL (4.4-10.8)
[2020-12-29 15:38] LABS: Basophils # (auto) 0 10 ^3/uL (0-0.2); Eosinophils % (auto) 2.8 % (0.0-7.0); Hematocrit 33.9 % (41.0-53.0); Lymphocytes % (auto) 22.6 % (10.0-50.0); Mean Corpuscular Hgb Conc. 33.6 g/dL (32.0-36.0); Mean Corpuscular Volume 101.1 fL (80.0-100.0); Monocytes % (auto) 11.5 % (0.0-12.0); Neutrophils % (auto) 62.1 % (37.0-80.0); Nucleated Red Blood Cells % 0.2 %; Platelet Count (auto) 78 10^3/uL (140-450); Red Blood Cells 3.35 10^6/uL (4.5-5.90); Red Cell Distribution Width 14.6 % (11.8-14.3)
[2020-12-29 16:10] LABS: Albumin 3.5 g/dL (3.4-5.0); Anion Gap 10 (5-15); Blood Urea Nitrogen 33 mg/dL (7-18); Carbon Dioxide 27 mmol/L (21-32); Chloride 103 mmol/L (98-107); Glucose 176 mg/dL (74-106); Potassium 4.1 mmol/L (3.5-5.1); Sodium 140 mmol/L (136-145)
[2020-12-29 16:16] LABS: Alanine Aminotransferase 16 U/L (16-61); Alkaline Phosphatase 225 U/L (45-117); Aspartate Aminotransferase 10 U/L (15-37); Bilirubin, Total 0.9 mg/dL (0.2-1.0); GFR African American 16 mL/min; GFR Non-African American 13 mL/min; Total Protein 7.3 g/dL (6.4-8.2)
[2020-12-29] MEDS ORDERED: ASPirin 81 mg TAB PO ONE (16:45)
[2020-12-29] MEDS ORDERED: AZITHROMYCIN 500MG/ 250ML 250 ML IV ONE (17:15)
[2020-12-29 17:16] LABS: INR 1.07 (0.9-1.15); Partial Thromboplastin Time 27.7 sec (23.0-31.2)
[2020-12-29] MEDS ORDERED: ZINC SULFATE 220mg CAP or TAB PO ONE (19:00)
[2020-12-29] MEDS ORDERED: ASCORBIC ACID 500 MG TAB PO ONE (19:00)
[2020-12-29 22:15] VITALS: BP 140/65
== END 2020-12-29 22:22 | disposition home or self-care (01) ==
LOC: ER 14:35
DX: R07.89 Other chest pain (principal); J84.9 Interstitial pulmonary disease, unspecified; D63.8 Anemia in other chronic diseases classified elsewhere; D69.6 Thrombocytopenia, unspecified; E11.22 Type 2 diabetes mellitus with diabetic chronic kidney disease; I13.2 Hypertensive heart and chronic kidney disease with heart failure and with stage 5 chronic kidney disease, or end stage renal disease; I50.9 Heart failure, unspecified; N18.6 End stage renal disease; E78.5 Hyperlipidemia, unspecified; Z88.6 Allergy status to analgesic agent
CPT/HCPCS: 36415; 71045; 80053; 83605; 83735; 83880; 84443; 84484; 85025; 85610; 85730; 87040; 93005; 96365; 96366; 99291; J0456

== ENCOUNTER 2021-07-27 21:32 | Inpatient (IN) | payer OTHER ==
[~2021-07-27] VITALS: Ht 167.6 cm; Wt 98.0 kg
[2021-07-27] MEDS ORDERED: levoFLOXacin 500MG 100 ML IV ONE (22:15)
[2021-07-27] MEDS ORDERED: SODIUM CHLORIDE 0.9% 2,400 ML IV ONE (22:15)
[2021-07-27] MEDS ORDERED: ACETAMINOPHEN 650 MG RECT SUPP PR ONE (22:30)
[2021-07-28 00:49] LABS: Hematocrit 30.2 % (41.0-53.0); Hemoglobin 9.8 g/dL (13.5-17.5); Mean Corpuscular Hemoglobin 32.8 pg (28.0-32.0); Mean Corpuscular Hgb Conc. 32.5 g/dL (32.0-36.0); Mean Corpuscular Volume 101.1 fL (80.0-100.0); Red Blood Cells 2.99 10^6/uL (4.5-5.90); Red Cell Distribution Width 15.9 % (11.8-14.3); White Blood Cell 10.3 10^3/uL (4.4-10.8)
[2021-07-28 00:54] LABS: Basophils % (manual) 0 (0.0-2.0); Blast Cells 0; Eosinophils % (manual) 0 (0-7); Metamyelocytes % 0; Myelocytes % 0; Promyelocytes % 0; Reactive Lymphocytes 0
[2021-07-28 01:07] LABS: Alanine Aminotransferase 47 U/L (16-61); Albumin 2.6 g/dL (3.4-5.0); Anion Gap 11 (5-15); Aspartate Aminotransferase 69 U/L (15-37); BUN/Creatinine Ratio 6.8; Blood Alcohol < 3.0 mg/dL (0-5); Blood Urea Nitrogen 45 mg/dL (7-18); Carbon Dioxide 23 mmol/L (21-32); Chloride 106 mmol/L (98-107); GFR African American 11 mL/min; GFR Non-African American 9 mL/min; Glucose 162 mg/dL (74-106); Potassium 4.3 mmol/L (3.5-5.1); Sodium 140 mmol/L (136-145)
[2021-07-28 01:12] LABS: Alkaline Phosphatase 132 U/L (45-117); Bilirubin, Total 0.8 mg/dL (0.2-1.0); Total Protein 6.6 g/dL (6.4-8.2)
[2021-07-28] MEDS ORDERED: NOREPINEPHRINE 8 MG/250ML KIT 250 ML IV SCH (01:15)
[2021-07-28 01:21] LABS: INR 1.27 (0.9-1.15); Partial Thromboplastin Time 28.5 sec (23.6-33.0)
[2021-07-28 01:43] LABS: Band Neutrophils % (manual) 4; Lymphocytes % (manual) 2 (10.0-50.0); Monocytes % (manual) 3 (0-12)
[2021-07-28] MEDS ORDERED: HYDROcodone-ACET 5/325MG TAB PO PRN (05:30)
[2021-07-28] MEDS ORDERED: ALBUMIN 25% 50 ML IV ONE (05:30)
[2021-07-28] MEDS ORDERED: DOCUSATE SOD 100 MG CAP PO PRN (05:30)
[2021-07-28] MEDS ORDERED: ACETAMINOPHEN 325 MG TAB PO PRN (05:30)
[2021-07-28] MEDS ORDERED: NITROGLYCERIN 0.4 MG SL TAB SL PRN (05:30)
[2021-07-28] MEDS ORDERED: MORPHINE SULFATE INJECTION 2 MG/ML SYRG IV PRN (05:30)
[2021-07-28 06:06] LABS: Eosinophils # (auto) 0 10 ^3/uL (0-0.8); Eosinophils % (auto) 0.1 % (0.0-7.0); Hemoglobin 10.7 g/dL (13.5-17.5); Lymphocytes # (auto) 0.9 10 ^3/uL (0.4-5.4); Monocytes # (auto) 0.8 10 ^3/uL (0-1.3); Monocytes % (auto) 7.1 % (0.0-12.0); White Blood Cell 11.5 10^3/uL (4.4-10.8)
[2021-07-28 06:09] LABS: Basophils # (auto) 0.1 10 ^3/uL (0-0.2); Basophils % (auto) 0.6 % (0.0-2.0); Hematocrit 35.2 % (41.0-53.0); Lymphocytes % (auto) 8.2 % (10.0-50.0); Mean Corpuscular Hemoglobin 32.4 pg (28.0-32.0); Mean Corpuscular Hgb Conc. 30.5 g/dL (32.0-36.0); Mean Corpuscular Volume 106.3 fL (80.0-100.0); Neutrophils # (auto) 9.6 10 ^3/uL (1.6-8.6); Nucleated Red Blood Cells % 0.1 %; Red Blood Cells 3.31 10^6/uL (4.5-5.90); Red Cell Distribution Width 16.5 % (11.8-14.3)
[2021-07-28 06:18] LABS: Chloride 108 mmol/L (98-107); Potassium 4.6 mmol/L (3.5-5.1); Sodium 142 mmol/L (136-145)
[2021-07-28 06:24] LABS: Albumin 2.6 g/dL (3.4-5.0); Anion Gap 15 (5-15); BUN/Creatinine Ratio 6.6; Blood Urea Nitrogen 44 mg/dL (7-18); Calcium 7.1 mg/dL (8.5-10.1); Carbon Dioxide 19 mmol/L (21-32); GFR African American 11 mL/min; GFR Non-African American 9 mL/min; Glucose 153 mg/dL (74-106)
[2021-07-28 06:27] LABS: Alanine Aminotransferase 50 U/L (16-61); Alkaline Phosphatase 136 U/L (45-117); Aspartate Aminotransferase 72 U/L (15-37); Bilirubin, Total 0.8 mg/dL (0.2-1.0); Total Protein 6.8 g/dL (6.4-8.2)
[2021-07-28] MEDS: SODIUM CHLOR 0.9% PF (SALINE LOCK) 10ML VIAL/SYR IV SCH ×3 (06:29→23:10)
[2021-07-28] MEDS: MIDODRINE HCL 10 MG TAB PO SCH ×3 (06:31→18:00)
[2021-07-28] MEDS: FAMOTIDINE (10MG/ML) 2ML VL IV SCH ×2 (12:49→23:10)
[2021-07-28] MEDS: ZINC SULFATE 220mg CAP or TAB PO SCH (12:50)
[2021-07-28] MEDS: ASPirin 81 mg TAB PO SCH (12:51)
[2021-07-28] MEDS: CALCIUM W/VIT D (600MG/400IU) TAB PO SCH ×2 (12:51→18:00)
[2021-07-28] MEDS: B-COMPLEX W/ C & FOLIC ACID(NEPHROVITE TAB) PO SCH (12:52)
[2021-07-28] MEDS: SEVELAMER 800 MG TAB PO SCH ×3 (12:52→18:00)
[2021-07-28] MEDS: cefTRIAXone 1GM/50ML D5W 50 ML IV SCH (12:55)
[2021-07-28] MEDS: ASCORBIC ACID 500 MG TAB PO SCH ×2 (12:56→23:11)
[2021-07-28] MEDS: HEPARIN SODIUM (PORCINE) 5000 UNITS/ML 1ML VIAL SC SCH ×2 (12:59→23:13)
[2021-07-28] MEDS: ONDANSETRON HCL 4 MG/2 ML VIAL IV PRN (15:00)
[2021-07-28] MEDS: AMIODARONE HCL 200 MG TAB PO SCH (23:11)
[2021-07-28] MEDS: ATORVASTATIN 20 MG TAB PO SCH (23:11)
[2021-07-29 03:45] VITALS: BP 139/77
[2021-07-29 04:19] LABS: Basophils # (auto) 0.1 10 ^3/uL (0-0.2); Eosinophils # (auto) 0.1 10 ^3/uL (0-0.8); Lymphocytes # (auto) 0.6 10 ^3/uL (0.4-5.4); Mean Corpuscular Hemoglobin 32.4 pg (28.0-32.0); Monocytes # (auto) 0.5 10 ^3/uL (0-1.3); Nucleated Red Blood Cells % 0.1 %
[2021-07-29 04:22] LABS: Basophils % (auto) 1.2 % (0.0-2.0); Eosinophils % (auto) 1.8 % (0.0-7.0); Hematocrit 31.2 % (41.0-53.0); Hemoglobin 9.9 g/dL (13.5-17.5); Lymphocytes % (auto) 9.6 % (10.0-50.0); Mean Corpuscular Hgb Conc. 31.6 g/dL (32.0-36.0); Mean Corpuscular Volume 102.7 fL (80.0-100.0); Monocytes % (auto) 8.6 % (0.0-12.0); Neutrophils # (auto) 4.8 10 ^3/uL (1.6-8.6); Neutrophils % (auto) 78.8 % (37.0-80.0); Red Blood Cells 3.04 10^6/uL (4.5-5.90); Red Cell Distribution Width 16.2 % (11.8-14.3); White Blood Cell 6.1 10^3/uL (4.4-10.8)
[2021-07-29 04:59] LABS: Albumin 2.5 g/dL (3.4-5.0); Calcium 7.8 mg/dL (8.5-10.1)
[2021-07-29 05:00] VITALS: BP 139/77
[2021-07-29 05:04] LABS: BUN/Creatinine Ratio 7.2; Bilirubin, Total 0.6 mg/dL (0.2-1.0); Total Protein 6.4 g/dL (6.4-8.2)
[2021-07-29] MEDS: SODIUM CHLOR 0.9% PF (SALINE LOCK) 10ML VIAL/SYR IV SCH ×3 (05:48→21:28)
[2021-07-29] MEDS: MIDODRINE HCL 10 MG TAB PO SCH ×3 (05:49→17:43)
[2021-07-29] MEDS: CALCIUM W/VIT D (600MG/400IU) TAB PO SCH ×2 (08:22→17:43)
[2021-07-29] MEDS: SEVELAMER 800 MG TAB PO SCH ×3 (08:22→17:44)
[2021-07-29 09:00] VITALS: BP 139/73
[2021-07-29] MEDS: HEPARIN SODIUM (PORCINE) 5000 UNITS/ML 1ML VIAL SC SCH ×2 (10:15→21:30)
[2021-07-29] MEDS: B-COMPLEX W/ C & FOLIC ACID(NEPHROVITE TAB) PO SCH (10:17)
[2021-07-29] MEDS: ZINC SULFATE 220mg CAP or TAB PO SCH (10:17)
[2021-07-29] MEDS: AMIODARONE HCL 200 MG TAB PO SCH ×2 (10:17→21:29)
[2021-07-29] MEDS: ASCORBIC ACID 500 MG TAB PO SCH ×2 (10:17→21:30)
[2021-07-29] MEDS: ASPirin 81 mg TAB PO SCH (10:17)
[2021-07-29] MEDS: FAMOTIDINE (10MG/ML) 2ML VL IV SCH ×2 (10:17→21:28)
[2021-07-29] MEDS: cefTRIAXone 1GM/50ML D5W 50 ML IV SCH (10:19)
[2021-07-29 13:00] VITALS: BP 144/74
[2021-07-29] MEDS: ONDANSETRON HCL 4 MG/2 ML VIAL IV PRN (14:34)
[2021-07-29 17:00] VITALS: BP 146/72
[2021-07-29 20:48] LABS: Amphetamine Screen, Urine NEGATIVE (NEGATIVE); Barbiturate Scree,Urine NEGATIVE (NEGATIVE); Benzodiazephine Screen, Urine NEGATIVE (NEGATIVE); Cannabinoid Screen, Urine NEGATIVE (NEGATIVE); Cocaine Screen, Urine NEGATIVE (NEGATIVE); Opiate Scree,Urine NEGATIVE (NEGATIVE); Phencyclidine Screen, Urine NEGATIVE (NEGATIVE)
[2021-07-29 21:06] LABS: Alcohol, Urine < 3.0 mg/dL (0-10)
[2021-07-29] MEDS: ATORVASTATIN 20 MG TAB PO SCH (21:29)
[2021-07-29 21:38] LABS: Urine Specific Gravity > 1.050 (1.001-1.035)
[2021-07-29 21:41] LABS: Urine Bacteria FEW /hpf (None Seen)
[2021-07-29 21:44] LABS: Urine WBC 15 /hpf (0 - 3)
[2021-07-29 22:00] VITALS: BP 146/75
[2021-07-30] MEDS ORDERED: ISOS1TAB28 PO
[2021-07-30] MEDS ORDERED: SEVE0.8P PO
[2021-07-30] MEDS ORDERED: CYAN50008 PO
[2021-07-30] MEDS ORDERED: FOLI1TAB6 PO
[2021-07-30] MEDS ORDERED: AMIO200T33 PO
[2021-07-30] MEDS ORDERED: B COCAP12 PO
[2021-07-30] MEDS ORDERED: METO25TA5 PO
[2021-07-30] MEDS ORDERED: CHOL20007 PO
[2021-07-30 05:00] VITALS: BP 142/74
[2021-07-30] MEDS: SODIUM CHLOR 0.9% PF (SALINE LOCK) 10ML VIAL/SYR IV SCH ×3 (05:58→21:24)
[2021-07-30] MEDS: MIDODRINE HCL 10 MG TAB PO SCH ×3 (05:59→18:00)
[2021-07-30 07:32] LABS: Basophils # (auto) 0.1 10 ^3/uL (0-0.2); Basophils % (auto) 1.1 % (0.0-2.0); Eosinophils # (auto) 0.3 10 ^3/uL (0-0.8); Eosinophils % (auto) 6.9 % (0.0-7.0); Hematocrit 28.8 % (41.0-53.0); Hemoglobin 9.4 g/dL (13.5-17.5); Lymphocytes # (auto) 0.8 10 ^3/uL (0.4-5.4); Lymphocytes % (auto) 16.8 % (10.0-50.0); Mean Corpuscular Hemoglobin 33.1 pg (28.0-32.0); Mean Corpuscular Hgb Conc. 32.8 g/dL (32.0-36.0); Mean Corpuscular Volume 100.9 fL (80.0-100.0); Monocytes # (auto) 0.6 10 ^3/uL (0-1.3); Monocytes % (auto) 11.8 % (0.0-12.0); Neutrophils # (auto) 3.1 10 ^3/uL (1.6-8.6); Neutrophils % (auto) 63.4 % (37.0-80.0); Nucleated Red Blood Cells % 0.1 %; Red Blood Cells 2.85 10^6/uL (4.5-5.90); White Blood Cell 4.8 10^3/uL (4.4-10.8)
[2021-07-30 07:45] LABS: Calcium 7.7 mg/dL (8.5-10.1); Potassium 5.1 mmol/L (3.5-5.1)
[2021-07-30] MEDS: SEVELAMER 800 MG TAB PO SCH ×3 (08:07→19:00)
[2021-07-30] MEDS: CALCIUM W/VIT D (600MG/400IU) TAB PO SCH ×2 (08:08→18:58)
[2021-07-30 09:00] VITALS: BP 167/90
[2021-07-30] MEDS: HEPARIN SODIUM (PORCINE) 5000 UNITS/ML 1ML VIAL SC SCH ×2 (09:33→21:28)
[2021-07-30] MEDS: ASPirin 81 mg TAB PO SCH (09:38)
[2021-07-30] MEDS: B-COMPLEX W/ C & FOLIC ACID(NEPHROVITE TAB) PO SCH (09:38)
[2021-07-30] MEDS: AMIODARONE HCL 200 MG TAB PO SCH ×2 (09:39→21:25)
[2021-07-30] MEDS: cefTRIAXone 1GM/50ML D5W 50 ML IV SCH (09:39)
[2021-07-30] MEDS: ZINC SULFATE 220mg CAP or TAB PO SCH (09:39)
[2021-07-30] MEDS: ASCORBIC ACID 500 MG TAB PO SCH ×2 (09:39→21:26)
[2021-07-30] MEDS: FAMOTIDINE (10MG/ML) 2ML VL IV SCH ×2 (09:39→21:24)
[2021-07-30 13:00] VITALS: BP 163/91
[2021-07-30] MEDS: ONDANSETRON HCL 4 MG/2 ML VIAL IV PRN (14:41)
[2021-07-30 18:00] VITALS: BP 128/64
[2021-07-30 18:06] VITALS: BP 137/71
[2021-07-30] MEDS: ATORVASTATIN 20 MG TAB PO SCH (21:26)
[2021-07-30 22:00] VITALS: BP 132/64
[2021-07-31] VITALS (16 sets, daily range): BP systolic 111–194; BP diastolic 48–99
[2021-07-31] MEDS: MIDODRINE HCL 10 MG TAB PO SCH ×3 (05:32→17:13)
[2021-07-31] MEDS: SODIUM CHLOR 0.9% PF (SALINE LOCK) 10ML VIAL/SYR IV SCH ×3 (05:33→21:40)
[2021-07-31 05:50] LABS: Basophils # (auto) 0.1 10 ^3/uL (0-0.2); Basophils % (auto) 1.6 % (0.0-2.0); Eosinophils # (auto) 0.3 10 ^3/uL (0-0.8); Eosinophils % (auto) 6.3 % (0.0-7.0); Hematocrit 30.5 % (41.0-53.0); Hemoglobin 9.8 g/dL (13.5-17.5); Lymphocytes # (auto) 0.6 10 ^3/uL (0.4-5.4); Lymphocytes % (auto) 12.5 % (10.0-50.0); Mean Corpuscular Hemoglobin 32.3 pg (28.0-32.0); Mean Corpuscular Hgb Conc. 32.2 g/dL (32.0-36.0); Mean Corpuscular Volume 100.4 fL (80.0-100.0); Monocytes # (auto) 0.5 10 ^3/uL (0-1.3); Monocytes % (auto) 11.1 % (0.0-12.0); Neutrophils # (auto) 3.3 10 ^3/uL (1.6-8.6); Neutrophils % (auto) 68.5 % (37.0-80.0); Red Blood Cells 3.04 10^6/uL (4.5-5.90); Red Cell Distribution Width 15.7 % (11.8-14.3); White Blood Cell 4.8 10^3/uL (4.4-10.8)
[2021-07-31 06:05] LABS: INR 1.17 (0.9-1.15)
[2021-07-31 06:17] LABS: Potassium 4.8 mmol/L (3.5-5.1)
[2021-07-31 06:19] LABS: BUN/Creatinine Ratio 7.1
[2021-07-31] MEDS ORDERED: SODIUM CHL 0.9% 1000 ML BAG XX ONE (07:00)
[2021-07-31] MEDS ORDERED: LIDOCAINE 2%HCL (LOCAL ANESTH.) INJ 20ML MDV ONE (07:21)
[2021-07-31] MEDS ORDERED: IODIXANOL 320MG/ML 100ML BTL IV ONE ×3 (07:21→09:10)
[2021-07-31] MEDS ORDERED: VERAPAMIL 2.5MG/ML INJ 2ML VIAL IV ONE (07:22)
[2021-07-31] MEDS ORDERED: fentaNYL CITRATE 100 MCG/2 ML VL ONE (07:22)
[2021-07-31] MEDS ORDERED: HEPARIN SODIUM (PORCINE) 5000 UNITS/ML 1ML VIAL ONE (07:22)
[2021-07-31] MEDS ORDERED: ANGIOMAX 250 MG VIAL IV ONE (07:22)
[2021-07-31] MEDS ORDERED: SODIUM CHL 0.9% 50 ML ONE (07:23)
[2021-07-31] MEDS ORDERED: MIDAZOLAM HCL 2MG/2ML 2ml VIAL (1mg/ml) ONE (07:23)
[2021-07-31] MEDS ORDERED: hydrALAZINE HCL 20 MG/ML VL ONE (07:39)
[2021-07-31] MEDS: CALCIUM W/VIT D (600MG/400IU) TAB PO SCH ×2 (08:00→17:13)
[2021-07-31] MEDS: SEVELAMER 800 MG TAB PO SCH ×3 (08:00→17:13)
[2021-07-31] MEDS ORDERED: TICAGRELOR 90 MG TAB ONE (09:37)
[2021-07-31] MEDS ORDERED: ASPirin 81 mg TAB ONE (09:40)
[2021-07-31] MEDS: ASPirin 81 mg TAB PO SCH ×2 (09:46→12:06)
[2021-07-31] MEDS: HEPARIN SODIUM (PORCINE) 5000 UNITS/ML 1ML VIAL SC SCH (10:00)
[2021-07-31] MEDS: B-COMPLEX W/ C & FOLIC ACID(NEPHROVITE TAB) PO SCH (12:04)
[2021-07-31] MEDS: ASCORBIC ACID 500 MG TAB PO SCH ×2 (12:04→21:37)
[2021-07-31] MEDS: ZINC SULFATE 220mg CAP or TAB PO SCH (12:04)
[2021-07-31] MEDS: AMIODARONE HCL 200 MG TAB PO SCH ×2 (12:05→21:37)
[2021-07-31] MEDS: FAMOTIDINE (10MG/ML) 2ML VL IV SCH ×2 (12:12→21:37)
[2021-07-31] MEDS: cefTRIAXone 1GM/50ML D5W 50 ML IV SCH (13:59)
[2021-07-31] MEDS ORDERED: IPRATROPIUM BROM 0.5 MG/2.5ML INH SOL NEB PRN (16:00)
[2021-07-31] MEDS ORDERED: ALBUTEROL SULF 2.5 MG/0.5ML(0.5%) NEB SOLN NEB PRN (16:00)
[2021-07-31] MEDS ORDERED: EPOETIN ALFA-EPBX 10,000 UNIT/1ML VIAL SC ONE (21:00)
[2021-07-31] MEDS: ATORVASTATIN 20 MG TAB PO SCH (21:36)
[2021-07-31] MEDS: TICAGRELOR 90 MG TAB PO SCH (21:36)
[2021-08-01 05:00] VITALS: BP 158/75
[2021-08-01] MEDS: MIDODRINE HCL 10 MG TAB PO SCH (05:42)
[2021-08-01] MEDS: SODIUM CHLOR 0.9% PF (SALINE LOCK) 10ML VIAL/SYR IV SCH (05:46)
[2021-08-01 05:52] LABS: BUN/Creatinine Ratio 6.1; Calcium 8.2 mg/dL (8.5-10.1); Potassium 4.3 mmol/L (3.5-5.1)
[2021-08-01 08:00] VITALS: BP 171/99
[2021-08-01] MEDS: CALCIUM W/VIT D (600MG/400IU) TAB PO SCH (08:20)
[2021-08-01] MEDS: SEVELAMER 800 MG TAB PO SCH ×2 (08:20→12:07)
[2021-08-01] MEDS ORDERED: METOPROLOL TARTRATE 25 MG TAB PO SCH (10:00)
[2021-08-01] MEDS ORDERED: ISOSORBIDE MONONITRATE ER 60 MG TAB PO SCH (10:00)
[2021-08-01] MEDS: cefTRIAXone 1GM/50ML D5W 50 ML IV SCH (10:41)
[2021-08-01] MEDS: FAMOTIDINE (10MG/ML) 2ML VL IV SCH (10:41)
[2021-08-01] MEDS: ZINC SULFATE 220mg CAP or TAB PO SCH (10:45)
[2021-08-01] MEDS: ASCORBIC ACID 500 MG TAB PO SCH (10:45)
[2021-08-01] MEDS: AMIODARONE HCL 200 MG TAB PO SCH (10:45)
[2021-08-01] MEDS: TICAGRELOR 90 MG TAB PO SCH (10:46)
[2021-08-01] MEDS: B-COMPLEX W/ C & FOLIC ACID(NEPHROVITE TAB) PO SCH (10:46)
[2021-08-01 12:00] VITALS: BP 137/80
[2021-08-01 12:19] LABS: Hepatitis A Ab IgM Negative
[2021-08-01 13:46] LABS: Hepatitis B Core IgM Negative
[2021-08-01 14:27] LABS: Hepatitis C Antibody Negative (Negative)
== END 2021-08-01 14:20 | disposition home or self-care (01) | DRG 246 ==
LOC: EDBD 21:32 → ER 21:33 → TELE 07-28 05:18 → TELE-WESTW 07-29 03:24
PROVIDERS: ADMIT Nurse Practitioner Family; ATTEND Internal Medicine Geriatric Medicine
PROC: 5A1D70Z Performance of Urinary Filtration, Intermittent, Less than 6 Hours Per Day (ICD-10-PCS; principal; 2021-07-31)
PROC: 027135Z Dilation of Coronary Artery, Two Arteries with Two Drug-eluting Intraluminal Devices, Percutaneous Approach (ICD-10-PCS; 2021-07-31)
PROC: 4A023N7 Measurement of Cardiac Sampling and Pressure, Left Heart, Percutaneous Approach (ICD-10-PCS; 2021-07-31)
PROC: B211YZZ Fluoroscopy of Multiple Coronary Arteries using Other Contrast (ICD-10-PCS; 2021-07-31)
PROC: B215YZZ Fluoroscopy of Left Heart using Other Contrast (ICD-10-PCS; 2021-07-31)
PROC: B241ZZ3 Ultrasonography of Multiple Coronary Arteries, Intravascular (ICD-10-PCS; 2021-07-31)
PROC: 02703ZZ Dilation of Coronary Artery, One Artery, Percutaneous Approach (ICD-10-PCS; 2021-07-31)
DX: T82.855A Stenosis of coronary artery stent, initial encounter (principal); I21.4 Non-ST elevation (NSTEMI) myocardial infarction; G93.41 Metabolic encephalopathy; N18.6 End stage renal disease; I50.33 Acute on chronic diastolic (congestive) heart failure; J81.0 Acute pulmonary edema; I13.2 Hypertensive heart and chronic kidney disease with heart failure and with stage 5 chronic kidney disease, or end stage renal disease; N39.0 Urinary tract infection, site not specified; Z94.0 Kidney transplant status; I27.20 Pulmonary hypertension, unspecified; I95.0 Idiopathic hypotension; I48.0 Paroxysmal atrial fibrillation; D63.8 Anemia in other chronic diseases classified elsewhere; E78.5 Hyperlipidemia, unspecified; Y83.8 Other surgical procedures as the cause of abnormal reaction of the patient, or of later complication, without mention of misadventure at the time of the procedure; E78.00 Pure hypercholesterolemia, unspecified; I25.10 Atherosclerotic heart disease of native coronary artery without angina pectoris; Z20.822 Contact with and (suspected) exposure to COVID-19; Z82.49 Family history of ischemic heart disease and other diseases of the circulatory system; Y92.89 Other specified places as the place of occurrence of the external cause; Z83.3 Family history of diabetes mellitus; Z95.2 Presence of prosthetic heart valve; Z98.61 Coronary angioplasty status; Z99.2 Dependence on renal dialysis; Z88.8 Allergy status to other drugs, medicaments and biological substances
CPT/HCPCS: 36415; 70450; 71045; 71250; 80048; 80053; 80074; 80307; 80320; 81001; 83036; 83605; 84484; 85007; 85025; 85027; 85379; 85610; 85730; 86850; 86900; 86901; 87040; 87081; 87086; 87426; 90935; 92928; 92978; 93005; 93306; 93458; 96365; 96366; 96368; 96375; 99152; 99153; 99291; C1874; G0378; J0696; J1956; J2250; J2405; J3490; Q9967

== ENCOUNTER 2023-05-08 08:09 | Inpatient (IN) | payer OTHER ==
[~2023-05-08] VITALS: Ht 172.7 cm; Wt 92.7 kg
[~2023-05-08 08:09] MED LIST changes: -AMIO100T3 OR; +AMIO200T33 PO; +B COCAP12 PO; +CHOL20007 PO; -CLOP75TA28 PO; +CYAN50008 PO; -FERR-7 PO; +FOLI-119 PO; +ISOS1TAB28 PO; -NIFE1TAB31 PO; +SEVE0.8P PO
[2023-05-08 08:37] VITALS: PULSE 96; RESP 16; O2SAT 95
[2023-05-08 08:51] LABS: Eosinophils # (auto) 0 10 ^3/uL (0-0.8); Eosinophils % (auto) 0.1 % (0.0-7.0); Lymphocytes # (auto) 0.5 10 ^3/uL (0.4-5.4); Mean Corpuscular Hemoglobin 32.9 pg (28.0-32.0); Neutrophils # (auto) 8.3 10 ^3/uL (1.6-8.6)
[2023-05-08 08:54] LABS: Basophils # (auto) 0.1 10 ^3/uL (0-0.2); Basophils % (auto) 0.8 % (0.0-2.0); Hematocrit 42.8 % (41.0-53.0); Hemoglobin 13.9 g/dL (13.5-17.5); Lymphocytes % (auto) 5.2 % (10.0-50.0); Mean Corpuscular Hgb Conc. 32.4 g/dL (32.0-36.0); Mean Corpuscular Volume 101.4 fL (80.0-100.0); Monocytes # (auto) 0.9 10 ^3/uL (0-1.3); Monocytes % (auto) 9.5 % (0.0-12.0); Neutrophils % (auto) 84.4 % (37.0-80.0); Red Blood Cells 4.22 10^6/uL (4.5-5.90); Red Cell Distribution Width 15.2 % (11.8-14.3); White Blood Cell 9.8 10^3/uL (4.4-10.8)
[2023-05-08 09:13] LABS: INR 1.27 (0.9-1.15); Partial Thromboplastin Time 29.3 SEC (24.5-34.5); Prothrombin Time 13.1 sec (9.3-11.8)
[2023-05-08 09:16] LABS: Alanine Aminotransferase 19 U/L (16-61); Albumin 3.9 g/dL (3.4-5.0); Anion Gap 9 (5-15); BUN/Creatinine Ratio 6.7 (10.0-20.0); Blood Alcohol < 3.0 mg/dL (<10); Blood Urea Nitrogen 57 mg/dL (7-18); Calcium 7.6 mg/dL (8.5-10.1); Carbon Dioxide 25 mmol/L (21-32); Chloride 103 mmol/L (98-107); GFR African American 8 mL/min; GFR Non-African American 7 mL/min; Glucose 144 mg/dL (74-106); Magnesium 2.1 mg/dL (1.6-2.6); Potassium 5.3 mmol/L (3.5-5.1); Sodium 137 mmol/L (136-145)
[2023-05-08 09:18] LABS: Alkaline Phosphatase 260 U/L (45-117); Aspartate Aminotransferase 17 U/L (15-37); Bilirubin, Total 1.1 mg/dL (0.2-1.0); Total Protein 7.5 g/dL (6.4-8.2)
[2023-05-08 09:19] LABS: Lactic Acid w/Reflex 2.8 mmol/L (0.4-2.0)
[2023-05-08] MEDS ORDERED: ACETAMINOPHEN 325 MG TAB PO ONE (10:00)
[2023-05-08] MEDS ORDERED: cefTRIAXone 1GM/50ML D5W 50 ML IV ONE (10:00)
[2023-05-08] MEDS ORDERED: levoFLOXacin 500MG 100 ML IV ONE (10:00)
[2023-05-08 10:40] LABS: COVID19 ANTIGEN SOFIA FIA NEGATIVE (NEGATIVE)
[2023-05-08] MEDS ORDERED: SODIUM CHLORIDE 0.9% 500 ML IV ONE (11:15)
[2023-05-08] MEDS ORDERED: TICA90TA PO (13:40)
[2023-05-08] MEDS ORDERED: AMIO200T13 PO (13:40)
[2023-05-08] MEDS ORDERED: SEVE800T10 PO (13:40)
[2023-05-08] MEDS ORDERED: HYDROcodone-ACET 5/325MG TAB PO PRN ×2 (13:45→14:00)
[2023-05-08] MEDS ORDERED: MORPHINE SULFATE INJ 2 MG/ml SYRG IV PRN ×3 (13:45→14:00)
[2023-05-08] MEDS ORDERED: ONDANSETRON HCL 4 MG/2 ML VIAL IV PRN ×2 (13:45→14:00)
[2023-05-08] MEDS ORDERED: NITROGLYCERIN 0.4 MG SL TAB SL PRN (13:45)
[2023-05-08] MEDS ORDERED: VANCOMYCIN PER PHARMACY 0 MG IV SCH (13:45)
[2023-05-08] MEDS ORDERED: ACETAMINOPHEN 500 MG TAB PO PRN (14:00)
[2023-05-08] MEDS ORDERED: VANCOMYCIN 1GM/250ML 250 ML IV ONE (14:00)
[2023-05-08 14:11] VITALS: BP 93/33; PULSE 87; RESP 15; O2SAT 97
[2023-05-08] MEDS ORDERED: NOREPINEPHRINE 8 MG/250ML KIT 250 ML IV PRN (16:00)
[2023-05-08] MEDS: SEVELAMER 800 MG TAB PO SCH (18:07)
[2023-05-08 19:40] VITALS: PULSE 69; RESP 22; O2SAT 97
[2023-05-08] MEDS: IPRATROPIUM BROM 0.5 MG/2.5ML INH SOL NEB SCH (19:46)
[2023-05-08] MEDS: ALBUTEROL SULF 2.5 MG/0.5ML(0.5%) NEB SOLN NEB SCH (19:46)
[2023-05-08] MEDS: BUDESONIDE (INHALATION) 0.5 MG/2 ML NEB NEB SCH (19:47)
[2023-05-08 19:49] VITALS: PULSE 69; RESP 21; O2SAT 100
[2023-05-08 20:00] VITALS: PULSE 70; RESP 20; O2SAT 96
[2023-05-08] MEDS: TICAGRELOR 90 MG TAB PO SCH (21:50)
[2023-05-09] VITALS (95 sets, daily range): BP systolic 57–157; BP diastolic 12–103; PULSE 61–91; RESP 15–24; TEMP 98.3–102.9; O2SAT 50–100
[2023-05-09] MEDS: ATORVASTATIN 20 MG TAB PO SCH ×2 (00:20→21:30)
[2023-05-09] MEDS ORDERED: ETOMIDATE (2MG/ML) 20ML VIAL IV ONE ×2 (03:02→05:15)
[2023-05-09] MEDS ORDERED: SUCCINYLCHOLINE CHLORIDE 20 MG/ML 10ML VIAL IV ONE ×2 (03:02→05:15)
[2023-05-09] MEDS ORDERED: NOREPINEPHRINE 8 MG/250ML KIT 250 ML IV ONE (03:07)
[2023-05-09] MEDS ORDERED: PROPOFOL 100 ML IV ONE (03:20)
[2023-05-09 03:58] LABS: Basophils # (auto) 0.1 10 ^3/uL (0-0.2); Eosinophils # (auto) 0 10 ^3/uL (0-0.8); Hematocrit 45.5 % (41.0-53.0)
[2023-05-09 04:00] LABS: Eosinophils % (auto) 0.2 % (0.0-7.0); Hemoglobin 14.4 g/dL (13.5-17.5); Lymphocytes # (auto) 1.5 10 ^3/uL (0.4-5.4); Mean Corpuscular Hemoglobin 32.9 pg (28.0-32.0); Mean Corpuscular Hgb Conc. 31.6 g/dL (32.0-36.0); Monocytes # (auto) 0.6 10 ^3/uL (0-1.3); Monocytes % (auto) 4.6 % (0.0-12.0); Neutrophils # (auto) 10.2 10 ^3/uL (1.6-8.6); Neutrophils % (auto) 82.2 % (37.0-80.0); Red Blood Cells 4.38 10^6/uL (4.5-5.90); Red Cell Distribution Width 15.6 % (11.8-14.3); White Blood Cell 12.4 10^3/uL (4.4-10.8)
[2023-05-09 04:13] LABS: BUN/Creatinine Ratio 7.2 (10.0-20.0); Calcium 8.2 mg/dL (8.5-10.1)
[2023-05-09 04:49] LABS: Base Excess -11.9 mmol/L (-2.0-2.0)
[2023-05-09 05:07] LABS: Potassium 6.3 mmol/L (3.5-5.1)
[2023-05-09] MEDS ORDERED: fentaNYL Drip 2500mCg/250mlNS 250 ML IV ONE (05:10)
[2023-05-09] MEDS ORDERED: SODIUM ZIRCONIUM CYCL 10 GM PAK PO ONE (05:30)
[2023-05-09] MEDS ORDERED: SODIUM BICARBONATE 8.4 % INJ 50ML VIAL IV ONE (05:30)
[2023-05-09 05:57] LABS: INR 1.51 (0.9-1.15); Partial Thromboplastin Time 30.7 SEC (24.5-34.5); Prothrombin Time 15.4 sec (9.3-11.8)
[2023-05-09] MEDS: ALBUTEROL SULF 2.5 MG/0.5ML(0.5%) NEB SOLN NEB SCH ×3 (06:28→18:23)
[2023-05-09] MEDS: IPRATROPIUM BROM 0.5 MG/2.5ML INH SOL NEB SCH ×3 (06:28→18:23)
[2023-05-09] MEDS: BUDESONIDE (INHALATION) 0.5 MG/2 ML NEB NEB SCH ×2 (06:29→18:23)
[2023-05-09] MEDS: PROPOFOL 100 ML IV SCH ×5 (06:33→22:22)
[2023-05-09] MEDS: NOREPINEPHRINE 8 MG/250ML KIT 250 ML IV SCH ×2 (06:33→11:03)
[2023-05-09] MEDS: fentaNYL Drip 2500mCg/250mlNS 250 ML IV SCH (06:36)
[2023-05-09] MEDS ORDERED: SODIUM CHL 0.9% 1000 ML BAG XX ONE (07:00)
[2023-05-09 07:24] LABS: Calcium 7.7 mg/dL (8.5-10.1)
[2023-05-09 07:27] LABS: Total Protein 6.8 g/dL (6.4-8.2)
[2023-05-09 07:31] LABS: Potassium 5.9 mmol/L (3.5-5.1)
[2023-05-09] MEDS: SEVELAMER 800 MG TAB PO SCH ×2 (08:00→11:34)
[2023-05-09] MEDS ORDERED: VANCOMYCIN 500 MG in D5W 5% 100 ML IV ONE ×2 (09:30→14:00)
[2023-05-09] MEDS ORDERED: ALBUMIN 25% 100 ML IV SCH (09:30)
[2023-05-09] MEDS: FOLIC ACID 1 MG TAB PO SCH (10:00)
[2023-05-09] MEDS: AMIODARONE HCL 200 MG TAB PO SCH (10:00)
[2023-05-09] MEDS: ALLOPURINOL 100 MG TAB PO SCH (10:00)
[2023-05-09] MEDS ORDERED: PANTOPRAZOLE 40 MG TAB PO SCH (10:00)
[2023-05-09] MEDS: TICAGRELOR 90 MG TAB PO SCH ×2 (10:00→21:30)
[2023-05-09] MEDS ORDERED: ALBUMIN 25% 100 ML IV PRN (10:45)
[2023-05-09] MEDS ORDERED: ALBUMIN 25% 100 ML IV ONE (10:49)
[2023-05-09] MEDS: CEFEPIME 1GM/ 50ML 50 ML IV SCH (11:34)
[2023-05-09] MEDS: NOREPINEPHRINE BITARTRATE 16 MG in SODIUM CHL 0.9% 234 ML IV SCH (16:27)
[2023-05-09] MEDS ORDERED: ACETAMINOPHEN 650 mg PER 20.3 mL UD GT PRN (18:30)
[2023-05-10] VITALS (106 sets, daily range): BP systolic 70–216; BP diastolic 14–161; PULSE 72–84; RESP 12–22; TEMP 98–99.7; O2SAT 71–100
[2023-05-10] MEDS: PROPOFOL 100 ML IV SCH ×3 (04:13→14:35)
[2023-05-10] MEDS: NOREPINEPHRINE BITARTRATE 16 MG in SODIUM CHL 0.9% 234 ML IV SCH (04:13)
[2023-05-10 04:56] LABS: Albumin 3.3 g/dL (3.4-5.0); Calcium 8.2 mg/dL (8.5-10.1); Magnesium 2.3 mg/dL (1.6-2.6); Potassium 4.7 mmol/L (3.5-5.1)
[2023-05-10 04:58] LABS: BUN/Creatinine Ratio 5.9 (10.0-20.0)
[2023-05-10] MEDS: fentaNYL Drip 2500mCg/250mlNS 250 ML IV SCH ×2 (04:58→13:15)
[2023-05-10 05:42] LABS: Hemoglobin 13.7 g/dL (13.5-17.5)
[2023-05-10 05:44] LABS: Hematocrit 42.1 % (41.0-53.0); Mean Corpuscular Hemoglobin 33.2 pg (28.0-32.0); Mean Corpuscular Hgb Conc. 32.5 g/dL (32.0-36.0); Mean Corpuscular Volume 102.2 fL (80.0-100.0); Red Blood Cells 4.12 10^6/uL (4.5-5.90); Red Cell Distribution Width 15.1 % (11.8-14.3)
[2023-05-10 05:46] LABS: Basophils % (manual) 0 (0.0-2.0); Blast Cells 0; Metamyelocytes % 0; Myelocytes % 0; Promyelocytes % 0; Reactive Lymphocytes 0
[2023-05-10] MEDS: IPRATROPIUM BROM 0.5 MG/2.5ML INH SOL NEB SCH ×3 (06:46→19:08)
[2023-05-10] MEDS: BUDESONIDE (INHALATION) 0.5 MG/2 ML NEB NEB SCH ×2 (06:46→19:08)
[2023-05-10] MEDS: ALBUTEROL SULF 2.5 MG/0.5ML(0.5%) NEB SOLN NEB SCH ×3 (06:46→19:08)
[2023-05-10 07:59] LABS: Base Excess -4.9 mmol/L (-2.0-2.0)
[2023-05-10 08:09] LABS: Band Neutrophils % (manual) 3; Eosinophils % (manual) 2 (0-7); Lymphocytes % (manual) 9 (10.0-50.0); Monocytes % (manual) 11 (0-12)
[2023-05-10 08:10] LABS: Macrocytosis Slight; Platelet Estimate Decreased
[2023-05-10] MEDS: AMIODARONE HCL 200 MG TAB PO SCH (09:40)
[2023-05-10] MEDS: CEFEPIME 1GM/ 50ML 50 ML IV SCH (09:40)
[2023-05-10] MEDS: FOLIC ACID 1 MG TAB PO SCH (09:40)
[2023-05-10] MEDS: PANTOPRAZOLE 40 MG/10 ML VIAL INJ IV SCH (09:40)
[2023-05-10] MEDS: ALLOPURINOL 100 MG TAB PO SCH (09:40)
[2023-05-10] MEDS: TICAGRELOR 90 MG TAB PO SCH ×2 (09:40→21:11)
[2023-05-10] MEDS: ATORVASTATIN 20 MG TAB PO SCH (21:10)
[2023-05-11] VITALS (103 sets, daily range): BP systolic 64–180; BP diastolic 15–62; PULSE 67–90; RESP 18–21; TEMP 97.8–98.8; O2SAT 83–100
[2023-05-11] MEDS: PROPOFOL 100 ML IV SCH ×3 (00:41→18:22)
[2023-05-11 04:48] LABS: White Blood Cell 7.5 10^3/uL (4.4-10.8)
[2023-05-11 04:55] LABS: Basophils # (auto) 0.1 10 ^3/uL (0-0.2); Basophils % (auto) 1.5 % (0.0-2.0); Eosinophils # (auto) 0.3 10 ^3/uL (0-0.8); Eosinophils % (auto) 4.4 % (0.0-7.0); Hematocrit 39.9 % (41.0-53.0); Hemoglobin 12.8 g/dL (13.5-17.5); Lymphocytes # (auto) 0.4 10 ^3/uL (0.4-5.4); Mean Corpuscular Hemoglobin 32.3 pg (28.0-32.0); Mean Corpuscular Hgb Conc. 32.2 g/dL (32.0-36.0); Mean Corpuscular Volume 100.2 fL (80.0-100.0); Monocytes # (auto) 1.2 10 ^3/uL (0-1.3); Monocytes % (auto) 15.4 % (0.0-12.0); Neutrophils # (auto) 5.5 10 ^3/uL (1.6-8.6); Neutrophils % (auto) 73.7 % (37.0-80.0); Red Blood Cells 3.98 10^6/uL (4.5-5.90); Red Cell Distribution Width 15.1 % (11.8-14.3)
[2023-05-11 05:05] LABS: BUN/Creatinine Ratio 6.2 (10.0-20.0); Calcium 8.1 mg/dL (8.5-10.1); Magnesium 2.3 mg/dL (1.6-2.6); Potassium 5.4 mmol/L (3.5-5.1)
[2023-05-11] MEDS: fentaNYL Drip 2500mCg/250mlNS 250 ML IV SCH (05:59)
[2023-05-11] MEDS: IPRATROPIUM BROM 0.5 MG/2.5ML INH SOL NEB SCH ×3 (06:44→18:45)
[2023-05-11] MEDS: BUDESONIDE (INHALATION) 0.5 MG/2 ML NEB NEB SCH ×2 (06:44→18:45)
[2023-05-11] MEDS: ALBUTEROL SULF 2.5 MG/0.5ML(0.5%) NEB SOLN NEB SCH ×3 (06:44→18:45)
[2023-05-11] MEDS ORDERED: SODIUM CHL 0.9% 1000 ML BAG XX ONE (07:00)
[2023-05-11 07:28] LABS: Base Excess -6.7 mmol/L (-2.0-2.0)
[2023-05-11] MEDS: ALLOPURINOL 100 MG TAB PO SCH (10:10)
[2023-05-11] MEDS: TICAGRELOR 90 MG TAB PO SCH ×2 (10:10→22:27)
[2023-05-11] MEDS: PANTOPRAZOLE 40 MG/10 ML VIAL INJ IV SCH (10:10)
[2023-05-11] MEDS: FOLIC ACID 1 MG TAB PO SCH (10:10)
[2023-05-11] MEDS: AMIODARONE HCL 200 MG TAB PO SCH (10:10)
[2023-05-11] MEDS: CEFEPIME 1GM/ 50ML 50 ML IV SCH (10:51)
[2023-05-11] MEDS: NOREPINEPHRINE BITARTRATE 16 MG in SODIUM CHL 0.9% 234 ML IV SCH (12:00)
[2023-05-11] MEDS ORDERED: ALBUMIN 25% 200 ML IV PRN (14:00)
[2023-05-11] MEDS: VASOPRESSIN 20 UNITS in SODIUM CHL 0.9% 99 ML IV SCH ×3 (14:05→23:01)
[2023-05-11] MEDS ORDERED: VANCOMYCIN 1GM/250ML 250 ML IV ONE (16:00)
[2023-05-11] MEDS: ATORVASTATIN 20 MG TAB PO SCH (22:27)
[2023-05-11] MEDS: HYDROCORTISONE SOD SUCC 100 MG/2ML INJ VIAL IV SCH (22:27)
[2023-05-12] VITALS (112 sets, daily range): BP systolic 39–163; BP diastolic 23–58; PULSE 63–88; RESP 16–24; TEMP 97–98.8; O2SAT 89–100
[2023-05-12 04:27] LABS: Basophils # (auto) 0 10 ^3/uL (0-0.2); Eosinophils # (auto) 0.1 10 ^3/uL (0-0.8); Eosinophils % (auto) 0.8 % (0.0-7.0); Hemoglobin 12.4 g/dL (13.5-17.5); Lymphocytes # (auto) 0.3 10 ^3/uL (0.4-5.4); Monocytes # (auto) 0.2 10 ^3/uL (0-1.3); Neutrophils % (auto) 91.4 % (37.0-80.0)
[2023-05-12] MEDS: NOREPINEPHRINE BITARTRATE 16 MG in SODIUM CHL 0.9% 234 ML IV SCH (04:27)
[2023-05-12] MEDS: PROPOFOL 100 ML IV SCH ×3 (04:27→22:55)
[2023-05-12 04:29] LABS: Basophils % (auto) 0.2 % (0.0-2.0); Hematocrit 39.1 % (41.0-53.0); Lymphocytes % (auto) 4.8 % (10.0-50.0); Mean Corpuscular Hemoglobin 32.7 pg (28.0-32.0); Mean Corpuscular Hgb Conc. 31.6 g/dL (32.0-36.0); Mean Corpuscular Volume 103.5 fL (80.0-100.0); Monocytes % (auto) 2.8 % (0.0-12.0); Neutrophils # (auto) 5.9 10 ^3/uL (1.6-8.6); Red Blood Cells 3.78 10^6/uL (4.5-5.90); White Blood Cell 6.4 10^3/uL (4.4-10.8)
[2023-05-12 04:39] LABS: Albumin 3.6 g/dL (3.4-5.0)
[2023-05-12 04:44] LABS: BUN/Creatinine Ratio 5.4 (10.0-20.0); Bilirubin, Total 1.2 mg/dL (0.2-1.0); Total Protein 7.4 g/dL (6.4-8.2)
[2023-05-12 04:47] LABS: Potassium 5.6 mmol/L (3.5-5.1)
[2023-05-12] MEDS: ALBUTEROL SULF 2.5 MG/0.5ML(0.5%) NEB SOLN NEB SCH ×3 (06:01→18:25)
[2023-05-12] MEDS: IPRATROPIUM BROM 0.5 MG/2.5ML INH SOL NEB SCH ×3 (06:01→18:25)
[2023-05-12] MEDS: BUDESONIDE (INHALATION) 0.5 MG/2 ML NEB NEB SCH ×2 (06:02→18:25)
[2023-05-12 07:24] LABS: Base Excess -10.7 mmol/L (-2.0-2.0)
[2023-05-12 08:15] LABS: Platelet Estimate 60
[2023-05-12 08:16] LABS: Macrocytosis Slight
[2023-05-12] MEDS ORDERED: SODIUM ZIRCONIUM CYCL 10 GM PAK PO ONE ×2 (09:00→17:00)
[2023-05-12] MEDS: VASOPRESSIN 20 UNITS in SODIUM CHL 0.9% 99 ML IV SCH (09:13)
[2023-05-12] MEDS ORDERED: SODIUM BICARBONATE 8.4 % INJ 50ML VIAL IV ONE (09:30)
[2023-05-12] MEDS: CEFEPIME 1GM/ 50ML 50 ML IV SCH (10:02)
[2023-05-12] MEDS: PANTOPRAZOLE 40 MG/10 ML VIAL INJ IV SCH (10:02)
[2023-05-12] MEDS: ALLOPURINOL 100 MG TAB PO SCH (10:02)
[2023-05-12] MEDS: FOLIC ACID 1 MG TAB PO SCH (10:02)
[2023-05-12] MEDS: AMIODARONE HCL 200 MG TAB PO SCH (10:02)
[2023-05-12] MEDS: HYDROCORTISONE SOD SUCC 100 MG/2ML INJ VIAL IV SCH ×2 (10:02→20:57)
[2023-05-12] MEDS: fentaNYL Drip 2500mCg/250mlNS 250 ML IV SCH (12:32)
[2023-05-12] MEDS: CALCITRIOL 0.25 MCG CAP NG SCH (13:18)
[2023-05-12 14:48] LABS: Base Excess -8.9 mmol/L (-2.0-2.0)
[2023-05-12] MEDS: ATORVASTATIN 20 MG TAB PO SCH (20:57)
[2023-05-13] VITALS (107 sets, daily range): BP systolic 60–194; BP diastolic 25–91; PULSE 65–134; RESP 13–26; TEMP 98.1–98.5; O2SAT 89–100
[2023-05-13] MEDS: NOREPINEPHRINE BITARTRATE 16 MG in SODIUM CHL 0.9% 234 ML IV SCH (00:10)
[2023-05-13 03:51] LABS: Basophils # (auto) 0 10 ^3/uL (0-0.2); Eosinophils # (auto) 0 10 ^3/uL (0-0.8); Hemoglobin 11.9 g/dL (13.5-17.5); Monocytes # (auto) 0.3 10 ^3/uL (0-1.3)
[2023-05-13 03:54] LABS: Basophils % (auto) 0.1 % (0.0-2.0); Hematocrit 36.4 % (41.0-53.0); Lymphocytes # (auto) 0.4 10 ^3/uL (0.4-5.4); Lymphocytes % (auto) 5.7 % (10.0-50.0); Mean Corpuscular Hgb Conc. 32.6 g/dL (32.0-36.0); Mean Corpuscular Volume 101.2 fL (80.0-100.0); Monocytes % (auto) 5.1 % (0.0-12.0); Neutrophils # (auto) 5.7 10 ^3/uL (1.6-8.6); Neutrophils % (auto) 89.1 % (37.0-80.0); Nucleated Red Blood Cells % 0.1 %; Red Cell Distribution Width 15.2 % (11.8-14.3); White Blood Cell 6.4 10^3/uL (4.4-10.8)
[2023-05-13 04:22] LABS: Calcium 7.8 mg/dL (8.5-10.1)
[2023-05-13 05:05] LABS: Potassium 6.3 mmol/L (3.5-5.1)
[2023-05-13] MEDS: VASOPRESSIN 20 UNITS in SODIUM CHL 0.9% 99 ML IV SCH ×2 (05:27→20:24)
[2023-05-13] MEDS: fentaNYL Drip 2500mCg/250mlNS 250 ML IV SCH (05:49)
[2023-05-13] MEDS: IPRATROPIUM BROM 0.5 MG/2.5ML INH SOL NEB SCH ×3 (06:05→18:34)
[2023-05-13] MEDS: ALBUTEROL SULF 2.5 MG/0.5ML(0.5%) NEB SOLN NEB SCH ×3 (06:05→18:34)
[2023-05-13] MEDS ORDERED: SODIUM ZIRCONIUM CYCL 10 GM PAK GT ONE (06:15)
[2023-05-13] MEDS ORDERED: SODIUM CHL 0.9% 1000 ML BAG XX ONE (07:00)
[2023-05-13] MEDS ORDERED: DEXTROSE (50%) 50ML SYRG IV PRN (09:15)
[2023-05-13] MEDS ORDERED: Glucerna 1.2 Cal 1Liter BOTTLE GT SCH (09:15)
[2023-05-13] MEDS: ACCU-CHEK COMFORT CURVE STRIP VI SCH ×3 (12:00→22:45)
[2023-05-13] MEDS: InsuLIN REG 1unit/0.01ml Soln (100units/ml) SC SCH ×3 (12:00→22:46)
[2023-05-13] MEDS: HYDROCORTISONE SOD SUCC 100 MG/2ML INJ VIAL IV SCH ×2 (12:46→20:24)
[2023-05-13] MEDS: CEFEPIME 1GM/ 50ML 50 ML IV SCH (12:46)
[2023-05-13] MEDS: PANTOPRAZOLE 40 MG/10 ML VIAL INJ IV SCH (12:46)
[2023-05-13] MEDS: FOLIC ACID 1 MG TAB PO SCH (12:47)
[2023-05-13] MEDS: ALLOPURINOL 100 MG TAB PO SCH (12:47)
[2023-05-13] MEDS: TICAGRELOR 90 MG TAB PO SCH ×2 (12:47→20:24)
[2023-05-13] MEDS: CALCITRIOL 0.25 MCG CAP NG SCH (12:47)
[2023-05-13] MEDS: AMIODARONE HCL 200 MG TAB PO SCH (12:47)
[2023-05-13 13:03] LABS: Base Excess -5.3 mmol/L (-2.0-2.0)
[2023-05-13] MEDS: BUDESONIDE (INHALATION) 0.5 MG/2 ML NEB NEB SCH ×2 (13:03→18:34)
[2023-05-13] MEDS ORDERED: AMIODARONE HCL 200 MG TAB PO SCH (17:30)
[2023-05-13] MEDS ORDERED: AMIODARONE 450mg/250ml AE 250 ML IV ONE (17:39)
[2023-05-13] MEDS ORDERED: AMIODARONE 450mg/250ml AE 250 ML IV SCH (18:00)
[2023-05-13 18:06] LABS: BUN/Creatinine Ratio 6.3 (10.0-20.0); Calcium 8.8 mg/dL (8.5-10.1)
[2023-05-13] MEDS: ATORVASTATIN 20 MG TAB PO SCH (20:24)
[2023-05-13] MEDS: AMIODARONE 450mg/250ml AE 250 ML IV SCH (22:37)
[2023-05-13] MEDS: PROPOFOL 100 ML IV SCH (22:38)
[2023-05-14] VITALS (113 sets, daily range): BP systolic 67–196; BP diastolic 23–92; PULSE 63–120; RESP 17–26; TEMP 97.6–98.8; O2SAT 97–100
[2023-05-14 04:01] LABS: Basophils # (auto) 0 10 ^3/uL (0-0.2); Eosinophils # (auto) 0 10 ^3/uL (0-0.8); Monocytes # (auto) 0.4 10 ^3/uL (0-1.3); Red Cell Distribution Width 15.2 % (11.8-14.3)
[2023-05-14 04:03] LABS: Basophils % (auto) 0.2 % (0.0-2.0); Eosinophils % (auto) 0.1 % (0.0-7.0); Hematocrit 37.7 % (41.0-53.0); Hemoglobin 12.2 g/dL (13.5-17.5); Lymphocytes # (auto) 0.5 10 ^3/uL (0.4-5.4); Lymphocytes % (auto) 6.6 % (10.0-50.0); Mean Corpuscular Hemoglobin 32.8 pg (28.0-32.0); Mean Corpuscular Hgb Conc. 32.5 g/dL (32.0-36.0); Mean Corpuscular Volume 100.9 fL (80.0-100.0); Monocytes % (auto) 5.3 % (0.0-12.0); Neutrophils # (auto) 6.5 10 ^3/uL (1.6-8.6); Neutrophils % (auto) 87.8 % (37.0-80.0); Nucleated Red Blood Cells % 0.1 %; Red Blood Cells 3.73 10^6/uL (4.5-5.90); White Blood Cell 7.3 10^3/uL (4.4-10.8)
[2023-05-14 04:42] LABS: BUN/Creatinine Ratio 8.1 (10.0-20.0); Calcium 8.7 mg/dL (8.5-10.1); Potassium 5.2 mmol/L (3.5-5.1)
[2023-05-14] MEDS: NOREPINEPHRINE BITARTRATE 16 MG in SODIUM CHL 0.9% 234 ML IV SCH (04:52)
[2023-05-14] MEDS: VASOPRESSIN 20 UNITS in SODIUM CHL 0.9% 99 ML IV SCH ×2 (04:57→12:14)
[2023-05-14] MEDS: ACCU-CHEK COMFORT CURVE STRIP VI SCH ×4 (05:19→23:32)
[2023-05-14] MEDS: InsuLIN REG 1unit/0.01ml Soln (100units/ml) SC SCH ×4 (05:20→23:33)
[2023-05-14] MEDS: IPRATROPIUM BROM 0.5 MG/2.5ML INH SOL NEB SCH ×3 (05:59→18:13)
[2023-05-14] MEDS: BUDESONIDE (INHALATION) 0.5 MG/2 ML NEB NEB SCH (05:59)
[2023-05-14] MEDS: ALBUTEROL SULF 2.5 MG/0.5ML(0.5%) NEB SOLN NEB SCH ×3 (05:59→18:13)
[2023-05-14 07:37] LABS: Base Excess -5.9 mmol/L (-2.0-2.0)
[2023-05-14] MEDS: CALCITRIOL 0.25 MCG CAP NG SCH (08:47)
[2023-05-14] MEDS: HYDROCORTISONE SOD SUCC 100 MG/2ML INJ VIAL IV SCH ×2 (08:47→20:34)
[2023-05-14] MEDS: PANTOPRAZOLE 40 MG/10 ML VIAL INJ IV SCH (08:47)
[2023-05-14] MEDS: CEFEPIME 1GM/ 50ML 50 ML IV SCH (08:47)
[2023-05-14] MEDS: FOLIC ACID 1 MG TAB PO SCH (08:47)
[2023-05-14] MEDS: ALLOPURINOL 100 MG TAB PO SCH (08:47)
[2023-05-14] MEDS: TICAGRELOR 90 MG TAB PO SCH ×2 (08:48→20:34)
[2023-05-14] MEDS: PROPOFOL 100 ML IV SCH (09:07)
[2023-05-14] MEDS: AMIODARONE 450mg/250ml AE 250 ML IV SCH (15:03)
[2023-05-14] MEDS: ATORVASTATIN 20 MG TAB PO SCH (20:34)
[2023-05-15] VITALS (101 sets, daily range): BP systolic 59–205; BP diastolic 30–109; PULSE 72–101; RESP 15–27; TEMP 98.5–99.6; O2SAT 94–100
[2023-05-15] MEDS: DexmedeTOMIDine 200 MCG in D5W 5% 48 ML IV SCH ×3 (00:30→21:54)
[2023-05-15] MEDS: fentaNYL Drip 2500mCg/250mlNS 250 ML IV SCH (01:58)
[2023-05-15] MEDS: VASOPRESSIN 20 UNITS in SODIUM CHL 0.9% 99 ML IV SCH ×2 (03:11→10:14)
[2023-05-15 04:28] LABS: Potassium 5.3 mmol/L (3.5-5.1)
[2023-05-15 04:32] LABS: BUN/Creatinine Ratio 9.5 (10.0-20.0); Calcium 8.4 mg/dL (8.5-10.1)
[2023-05-15 04:35] LABS: Bilirubin, Total 0.9 mg/dL (0.2-1.0); Total Protein 6.7 g/dL (6.4-8.2)
[2023-05-15 04:40] LABS: Hemoglobin 11.7 g/dL (13.5-17.5); White Blood Cell 7.9 10^3/uL (4.4-10.8)
[2023-05-15 04:42] LABS: Hematocrit 35.6 % (41.0-53.0); Mean Corpuscular Hemoglobin 32.9 pg (28.0-32.0); Mean Corpuscular Volume 99.7 fL (80.0-100.0); Red Blood Cells 3.57 10^6/uL (4.5-5.90); Red Cell Distribution Width 15.2 % (11.8-14.3)
[2023-05-15 04:45] LABS: Basophils % (manual) 0 (0.0-2.0); Blast Cells 0; Eosinophils % (manual) 0 (0-7); Metamyelocytes % 0; Myelocytes % 0; Promyelocytes % 0; Reactive Lymphocytes 0
[2023-05-15] MEDS: InsuLIN REG 1unit/0.01ml Soln (100units/ml) SC SCH ×3 (05:28→17:44)
[2023-05-15] MEDS: ACCU-CHEK COMFORT CURVE STRIP VI SCH ×3 (05:28→17:43)
[2023-05-15] MEDS: AMIODARONE 450mg/250ml AE 250 ML IV SCH ×2 (05:29→19:53)
[2023-05-15] MEDS: BUDESONIDE (INHALATION) 0.5 MG/2 ML NEB NEB SCH ×2 (06:14→18:13)
[2023-05-15] MEDS: ALBUTEROL SULF 2.5 MG/0.5ML(0.5%) NEB SOLN NEB SCH ×3 (06:15→18:12)
[2023-05-15] MEDS: IPRATROPIUM BROM 0.5 MG/2.5ML INH SOL NEB SCH ×3 (06:15→18:12)
[2023-05-15 06:38] LABS: Base Excess -4.8 mmol/L (-2.0-2.0)
[2023-05-15] MEDS ORDERED: SODIUM CHL 0.9% 1000 ML BAG XX ONE (07:00)
[2023-05-15] MEDS: PANTOPRAZOLE 40 MG/10 ML VIAL INJ IV SCH (08:05)
[2023-05-15] MEDS: CALCITRIOL 0.25 MCG CAP NG SCH (08:05)
[2023-05-15] MEDS: TICAGRELOR 90 MG TAB PO SCH ×2 (08:05→22:00)
[2023-05-15] MEDS: CEFEPIME 1GM/ 50ML 50 ML IV SCH (08:05)
[2023-05-15] MEDS: ALLOPURINOL 100 MG TAB PO SCH (08:05)
[2023-05-15] MEDS: FOLIC ACID 1 MG TAB PO SCH (08:05)
[2023-05-15] MEDS: HYDROCORTISONE SOD SUCC 100 MG/2ML INJ VIAL IV SCH (08:05)
[2023-05-15] MEDS ORDERED: DEXTROSE (50%) 50ML SYRG IV PRN (10:15)
[2023-05-15] MEDS ORDERED: Glucerna 1.2 Cal 1Liter BOTTLE GT SCH (10:15)
[2023-05-15 10:36] LABS: Band Neutrophils % (manual) 4; Lymphocytes % (manual) 7 (10.0-50.0); Monocytes % (manual) 6 (0-12)
[2023-05-15 10:37] LABS: Platelet Estimate Decreased
[2023-05-15 10:38] LABS: RBC Morphology Normal
[2023-05-15] MEDS: NOREPINEPHRINE BITARTRATE 16 MG in SODIUM CHL 0.9% 234 ML IV SCH (12:16)
[2023-05-15] MEDS: ATORVASTATIN 20 MG TAB PO SCH (22:38)
[2023-05-16] VITALS (107 sets, daily range): BP systolic 79–209; BP diastolic 27–88; PULSE 80–102; RESP 14–27; TEMP 98.5–99.6; O2SAT 95–100
[2023-05-16] MEDS: ACCU-CHEK COMFORT CURVE STRIP VI SCH ×5 (00:40→23:39)
[2023-05-16] MEDS: InsuLIN REG 1unit/0.01ml Soln (100units/ml) SC SCH ×5 (00:41→23:41)
[2023-05-16] MEDS: VASOPRESSIN 20 UNITS in SODIUM CHL 0.9% 99 ML IV SCH ×3 (01:25→17:22)
[2023-05-16 04:26] LABS: Basophils # (auto) 0 10 ^3/uL (0-0.2); Hemoglobin 12.9 g/dL (13.5-17.5); Monocytes # (auto) 0.4 10 ^3/uL (0-1.3); Monocytes % (auto) 5.4 % (0.0-12.0)
[2023-05-16 04:30] LABS: Basophils % (auto) 0.4 % (0.0-2.0); Eosinophils # (auto) 0 10 ^3/uL (0-0.8); Eosinophils % (auto) 0.6 % (0.0-7.0); Hematocrit 39.1 % (41.0-53.0); Lymphocytes # (auto) 0.6 10 ^3/uL (0.4-5.4); Lymphocytes % (auto) 6.9 % (10.0-50.0); Mean Corpuscular Hemoglobin 32.8 pg (28.0-32.0); Mean Corpuscular Hgb Conc. 33.1 g/dL (32.0-36.0); Mean Corpuscular Volume 99.3 fL (80.0-100.0); Neutrophils % (auto) 86.7 % (37.0-80.0); Nucleated Red Blood Cells % 0.1 %; Red Blood Cells 3.94 10^6/uL (4.5-5.90); Red Cell Distribution Width 14.8 % (11.8-14.3); White Blood Cell 8.1 10^3/uL (4.4-10.8)
[2023-05-16 04:41] LABS: Potassium 3.8 mmol/L (3.5-5.1)
[2023-05-16 04:46] LABS: Albumin 2.7 g/dL (3.4-5.0); BUN/Creatinine Ratio 9.2 (10.0-20.0); Calcium 8.6 mg/dL (8.5-10.1)
[2023-05-16 04:49] LABS: Bilirubin, Total 0.9 mg/dL (0.2-1.0); Total Protein 6.8 g/dL (6.4-8.2)
[2023-05-16] MEDS: fentaNYL Drip 2500mCg/250mlNS 250 ML IV SCH (05:00)
[2023-05-16] MEDS: IPRATROPIUM BROM 0.5 MG/2.5ML INH SOL NEB SCH ×3 (05:58→18:20)
[2023-05-16] MEDS: ALBUTEROL SULF 2.5 MG/0.5ML(0.5%) NEB SOLN NEB SCH ×3 (05:58→18:20)
[2023-05-16] MEDS: BUDESONIDE (INHALATION) 0.5 MG/2 ML NEB NEB SCH ×2 (05:58→18:20)
[2023-05-16] MEDS: DexmedeTOMIDine 200 MCG in D5W 5% 48 ML IV SCH ×2 (07:03→10:54)
[2023-05-16] MEDS: CEFEPIME 1GM/ 50ML 50 ML IV SCH (07:29)
[2023-05-16] MEDS: ALLOPURINOL 100 MG TAB PO SCH (07:30)
[2023-05-16] MEDS: PANTOPRAZOLE 40 MG/10 ML VIAL INJ IV SCH (07:30)
[2023-05-16] MEDS: FOLIC ACID 1 MG TAB PO SCH (07:30)
[2023-05-16] MEDS: CALCITRIOL 0.25 MCG CAP NG SCH (07:30)
[2023-05-16] MEDS: TICAGRELOR 90 MG TAB PO SCH ×2 (07:32→21:36)
[2023-05-16 08:02] LABS: Base Excess -2.3 mmol/L (-2.0-2.0)
[2023-05-16] MEDS: AMIODARONE 450mg/250ml AE 250 ML IV SCH (09:50)
[2023-05-16] MEDS: NOREPINEPHRINE BITARTRATE 16 MG in SODIUM CHL 0.9% 234 ML IV SCH (11:50)
[2023-05-16] MEDS: ATORVASTATIN 20 MG TAB PO SCH (21:45)
[2023-05-17] VITALS (110 sets, daily range): BP systolic 84–157; BP diastolic 24–70; PULSE 81–94; RESP 18–25; TEMP 98.3–98.9; O2SAT 99–100
[2023-05-17] MEDS: AMIODARONE 450mg/250ml AE 250 ML IV SCH ×2 (00:54→15:10)
[2023-05-17 03:55] LABS: Basophils # (auto) 0 10 ^3/uL (0-0.2); Basophils % (auto) 0.5 % (0.0-2.0); Eosinophils # (auto) 0.1 10 ^3/uL (0-0.8); Eosinophils % (auto) 1.3 % (0.0-7.0); Hematocrit 36.6 % (41.0-53.0); Hemoglobin 12.1 g/dL (13.5-17.5); Lymphocytes # (auto) 0.6 10 ^3/uL (0.4-5.4); Lymphocytes % (auto) 5.9 % (10.0-50.0); Mean Corpuscular Hemoglobin 32.9 pg (28.0-32.0); Mean Corpuscular Volume 99.7 fL (80.0-100.0); Monocytes # (auto) 0.6 10 ^3/uL (0-1.3); Monocytes % (auto) 5.9 % (0.0-12.0); Neutrophils # (auto) 8.7 10 ^3/uL (1.6-8.6); Neutrophils % (auto) 86.4 % (37.0-80.0); Nucleated Red Blood Cells % 0.2 %; Red Blood Cells 3.68 10^6/uL (4.5-5.90); Red Cell Distribution Width 14.9 % (11.8-14.3); White Blood Cell 10.1 10^3/uL (4.4-10.8)
[2023-05-17 03:59] LABS: Potassium 4.3 mmol/L (3.5-5.1)
[2023-05-17 04:05] LABS: Albumin 2.6 g/dL (3.4-5.0); BUN/Creatinine Ratio 9.7 (10.0-20.0); Bilirubin, Total 0.8 mg/dL (0.2-1.0); Calcium 9.2 mg/dL (8.5-10.1); Total Protein 6.8 g/dL (6.4-8.2)
[2023-05-17] MEDS: DexmedeTOMIDine 200 MCG in D5W 5% 48 ML IV SCH ×2 (04:36→11:26)
[2023-05-17] MEDS: fentaNYL Drip 2500mCg/250mlNS 250 ML IV SCH (04:36)
[2023-05-17] MEDS: ACCU-CHEK COMFORT CURVE STRIP VI SCH ×4 (05:52→23:57)
[2023-05-17] MEDS: InsuLIN REG 1unit/0.01ml Soln (100units/ml) SC SCH ×4 (06:02→23:59)
[2023-05-17] MEDS: BUDESONIDE (INHALATION) 0.5 MG/2 ML NEB NEB SCH ×2 (06:43→18:11)
[2023-05-17] MEDS: IPRATROPIUM BROM 0.5 MG/2.5ML INH SOL NEB SCH ×3 (06:43→18:11)
[2023-05-17] MEDS: ALBUTEROL SULF 2.5 MG/0.5ML(0.5%) NEB SOLN NEB SCH ×3 (06:43→18:11)
[2023-05-17] MEDS: VASOPRESSIN 20 UNITS in SODIUM CHL 0.9% 99 ML IV SCH ×2 (07:23→17:08)
[2023-05-17] MEDS: PANTOPRAZOLE 40 MG/10 ML VIAL INJ IV SCH (07:25)
[2023-05-17] MEDS: FOLIC ACID 1 MG TAB PO SCH (07:25)
[2023-05-17] MEDS: CEFEPIME 1GM/ 50ML 50 ML IV SCH (07:25)
[2023-05-17] MEDS: CALCITRIOL 0.25 MCG CAP NG SCH (07:25)
[2023-05-17] MEDS: TICAGRELOR 90 MG TAB PO SCH (07:26)
[2023-05-17] MEDS: ALLOPURINOL 100 MG TAB PO SCH (07:26)
[2023-05-17 09:12] LABS: Base Excess -2.8 mmol/L (-2.0-2.0)
[2023-05-17] MEDS: NOREPINEPHRINE BITARTRATE 16 MG in SODIUM CHL 0.9% 234 ML IV SCH (11:27)
[2023-05-17] MEDS: ATORVASTATIN 20 MG TAB PO SCH (21:36)
[2023-05-18] VITALS (109 sets, daily range): BP systolic 76–177; BP diastolic 21–138; PULSE 81–96; RESP 17–26; TEMP 98.2–99.3; O2SAT 98–100
[2023-05-18] MEDS: fentaNYL Drip 2500mCg/250mlNS 250 ML IV SCH (03:19)
[2023-05-18] MEDS: DexmedeTOMIDine 200 MCG in D5W 5% 48 ML IV SCH ×2 (03:19→14:06)
[2023-05-18 04:11] LABS: Basophils # (auto) 0 10 ^3/uL (0-0.2); Basophils % (auto) 0.4 % (0.0-2.0); Eosinophils # (auto) 0.2 10 ^3/uL (0-0.8); Hematocrit 34.5 % (41.0-53.0); Hemoglobin 11.4 g/dL (13.5-17.5); Lymphocytes # (auto) 0.5 10 ^3/uL (0.4-5.4); Lymphocytes % (auto) 5.3 % (10.0-50.0); Mean Corpuscular Hemoglobin 33.2 pg (28.0-32.0); Mean Corpuscular Hgb Conc. 33.1 g/dL (32.0-36.0); Mean Corpuscular Volume 100.3 fL (80.0-100.0); Monocytes # (auto) 0.6 10 ^3/uL (0-1.3); Monocytes % (auto) 6.7 % (0.0-12.0); Neutrophils # (auto) 7.7 10 ^3/uL (1.6-8.6); Neutrophils % (auto) 85.6 % (37.0-80.0); Nucleated Red Blood Cells % 0.1 %; Red Blood Cells 3.44 10^6/uL (4.5-5.90)
[2023-05-18 04:23] LABS: INR 1.19 (0.9-1.15); Prothrombin Time 12.4 sec (9.3-11.8)
[2023-05-18 04:25] LABS: Albumin 2.3 g/dL (3.4-5.0); Calcium 8.8 mg/dL (8.5-10.1)
[2023-05-18 04:29] LABS: BUN/Creatinine Ratio 9.8 (10.0-20.0); Bilirubin, Total 0.7 mg/dL (0.2-1.0); Total Protein 6.5 g/dL (6.4-8.2)
[2023-05-18] MEDS: ACCU-CHEK COMFORT CURVE STRIP VI SCH ×4 (05:29→23:08)
[2023-05-18] MEDS: InsuLIN REG 1unit/0.01ml Soln (100units/ml) SC SCH ×4 (05:29→23:10)
[2023-05-18] MEDS: IPRATROPIUM BROM 0.5 MG/2.5ML INH SOL NEB SCH ×3 (06:35→18:23)
[2023-05-18] MEDS: ALBUTEROL SULF 2.5 MG/0.5ML(0.5%) NEB SOLN NEB SCH ×3 (06:35→18:23)
[2023-05-18] MEDS: BUDESONIDE (INHALATION) 0.5 MG/2 ML NEB NEB SCH ×2 (06:35→18:23)
[2023-05-18 08:52] LABS: Base Excess -2.9 mmol/L (-2.0-2.0)
[2023-05-18] MEDS: VASOPRESSIN 20 UNITS in SODIUM CHL 0.9% 99 ML IV SCH ×2 (09:00→19:56)
[2023-05-18] MEDS: NOREPINEPHRINE BITARTRATE 16 MG in SODIUM CHL 0.9% 234 ML IV SCH (09:45)
[2023-05-18] MEDS ORDERED: ALBUMIN 25% 100 ML IV ONE (10:30)
[2023-05-18] MEDS: FOLIC ACID 1 MG TAB PO SCH (13:00)
[2023-05-18] MEDS: ALLOPURINOL 100 MG TAB PO SCH (13:00)
[2023-05-18] MEDS: CEFEPIME 1GM/ 50ML 50 ML IV SCH (13:00)
[2023-05-18] MEDS: PANTOPRAZOLE 40 MG/10 ML VIAL INJ IV SCH (13:01)
[2023-05-18] MEDS: CALCITRIOL 0.25 MCG CAP NG SCH (13:01)
[2023-05-18] MEDS: AMIODARONE 450mg/250ml AE 250 ML IV SCH (20:31)
[2023-05-18] MEDS: ATORVASTATIN 20 MG TAB PO SCH (21:13)
[2023-05-19] VITALS (105 sets, daily range): BP systolic 77–163; BP diastolic 22–95; PULSE 82–105; RESP 18–28; TEMP 98.8–99.3; O2SAT 92–100
[2023-05-19] MEDS: DexmedeTOMIDine 200 MCG in D5W 5% 48 ML IV SCH ×3 (00:48→22:12)
[2023-05-19] MEDS: fentaNYL Drip 2500mCg/250mlNS 250 ML IV SCH (01:27)
[2023-05-19 05:05] LABS: Basophils # (auto) 0 10 ^3/uL (0-0.2); Basophils % (auto) 0.5 % (0.0-2.0); Eosinophils # (auto) 0.2 10 ^3/uL (0-0.8); Eosinophils % (auto) 2.3 % (0.0-7.0); Hematocrit 35.9 % (41.0-53.0); Hemoglobin 11.7 g/dL (13.5-17.5); Lymphocytes # (auto) 0.5 10 ^3/uL (0.4-5.4); Lymphocytes % (auto) 5.5 % (10.0-50.0); Mean Corpuscular Hemoglobin 32.7 pg (28.0-32.0); Mean Corpuscular Hgb Conc. 32.6 g/dL (32.0-36.0); Mean Corpuscular Volume 100.1 fL (80.0-100.0); Monocytes # (auto) 0.9 10 ^3/uL (0-1.3); Monocytes % (auto) 9.5 % (0.0-12.0); Neutrophils # (auto) 7.6 10 ^3/uL (1.6-8.6); Neutrophils % (auto) 82.2 % (37.0-80.0); Red Blood Cells 3.59 10^6/uL (4.5-5.90); Red Cell Distribution Width 15.4 % (11.8-14.3); White Blood Cell 9.2 10^3/uL (4.4-10.8)
[2023-05-19 05:31] LABS: BUN/Creatinine Ratio 9.2 (10.0-20.0); Calcium 9.2 mg/dL (8.5-10.1); Phosphorus 5.5 mg/dL (2.5-4.90)
[2023-05-19] MEDS: ACCU-CHEK COMFORT CURVE STRIP VI SCH ×4 (05:32→23:33)
[2023-05-19] MEDS: InsuLIN REG 1unit/0.01ml Soln (100units/ml) SC SCH ×4 (05:35→23:34)
[2023-05-19] MEDS: IPRATROPIUM BROM 0.5 MG/2.5ML INH SOL NEB SCH ×3 (06:40→18:19)
[2023-05-19] MEDS: ALBUTEROL SULF 2.5 MG/0.5ML(0.5%) NEB SOLN NEB SCH ×3 (06:40→18:19)
[2023-05-19] MEDS: BUDESONIDE (INHALATION) 0.5 MG/2 ML NEB NEB SCH ×2 (06:41→18:19)
[2023-05-19] MEDS: VASOPRESSIN 20 UNITS in SODIUM CHL 0.9% 99 ML IV SCH ×2 (07:14→18:21)
[2023-05-19 07:18] LABS: Base Excess 0.4 mmol/L (-2.0-2.0)
[2023-05-19] MEDS: CEFEPIME 1GM/ 50ML 50 ML IV SCH (09:16)
[2023-05-19] MEDS: PANTOPRAZOLE 40 MG/10 ML VIAL INJ IV SCH (09:16)
[2023-05-19] MEDS: FOLIC ACID 1 MG TAB PO SCH (09:17)
[2023-05-19] MEDS: ALLOPURINOL 100 MG TAB PO SCH (09:17)
[2023-05-19] MEDS: CALCITRIOL 0.25 MCG CAP NG SCH (10:00)
[2023-05-19] MEDS ORDERED: SODIUM CHL 0.9% 1000 ML BAG XX ONE (11:30)
[2023-05-19] MEDS: NOREPINEPHRINE BITARTRATE 16 MG in SODIUM CHL 0.9% 234 ML IV SCH (14:45)
[2023-05-19] MEDS: AMIODARONE HCL 200 MG TAB PO SCH (21:30)
[2023-05-19] MEDS: ATORVASTATIN 20 MG TAB PO SCH (21:30)
[2023-05-20] VITALS (104 sets, daily range): BP systolic 75–162; BP diastolic 22–86; PULSE 86–107; RESP 14–28; TEMP 98.1–101.4; O2SAT 97–100
[2023-05-20 03:52] LABS: Basophils # (auto) 0.1 10 ^3/uL (0-0.2); Basophils % (auto) 0.6 % (0.0-2.0); Eosinophils # (auto) 0.1 10 ^3/uL (0-0.8); Eosinophils % (auto) 1.3 % (0.0-7.0); Hematocrit 37.3 % (41.0-53.0); Hemoglobin 11.8 g/dL (13.5-17.5); Lymphocytes # (auto) 0.7 10 ^3/uL (0.4-5.4); Lymphocytes % (auto) 6.2 % (10.0-50.0); Mean Corpuscular Hemoglobin 32.1 pg (28.0-32.0); Mean Corpuscular Hgb Conc. 31.7 g/dL (32.0-36.0); Mean Corpuscular Volume 101.3 fL (80.0-100.0); Monocytes # (auto) 1.5 10 ^3/uL (0-1.3); Monocytes % (auto) 13.6 % (0.0-12.0); Neutrophils # (auto) 8.4 10 ^3/uL (1.6-8.6); Neutrophils % (auto) 78.3 % (37.0-80.0); Red Blood Cells 3.68 10^6/uL (4.5-5.90); Red Cell Distribution Width 15.6 % (11.8-14.3); White Blood Cell 10.7 10^3/uL (4.4-10.8)
[2023-05-20 04:01] LABS: BUN/Creatinine Ratio 8.6 (10.0-20.0); Calcium 9.4 mg/dL (8.5-10.1); Potassium 3.9 mmol/L (3.5-5.1)
[2023-05-20] MEDS: fentaNYL Drip 2500mCg/250mlNS 250 ML IV SCH (05:00)
[2023-05-20] MEDS: VASOPRESSIN 20 UNITS in SODIUM CHL 0.9% 99 ML IV SCH ×2 (05:07→16:35)
[2023-05-20] MEDS: ACCU-CHEK COMFORT CURVE STRIP VI SCH ×4 (05:19→23:39)
[2023-05-20] MEDS: InsuLIN REG 1unit/0.01ml Soln (100units/ml) SC SCH ×4 (05:21→23:41)
[2023-05-20] MEDS: BUDESONIDE (INHALATION) 0.5 MG/2 ML NEB NEB SCH (06:23)
[2023-05-20] MEDS: IPRATROPIUM BROM 0.5 MG/2.5ML INH SOL NEB SCH ×3 (06:23→18:32)
[2023-05-20] MEDS: ALBUTEROL SULF 2.5 MG/0.5ML(0.5%) NEB SOLN NEB SCH ×3 (06:23→18:32)
[2023-05-20 07:25] LABS: Base Excess -3.1 mmol/L (-2.0-2.0)
[2023-05-20] MEDS: DexmedeTOMIDine 200 MCG in D5W 5% 48 ML IV SCH ×2 (08:54→19:36)
[2023-05-20] MEDS: cefTRIAXone 1GM/50ML D5W 50 ML IV SCH (08:56)
[2023-05-20] MEDS: FOLIC ACID 1 MG TAB PO SCH (09:10)
[2023-05-20] MEDS: PANTOPRAZOLE 40 MG/10 ML VIAL INJ IV SCH (09:10)
[2023-05-20] MEDS: ALLOPURINOL 100 MG TAB PO SCH (09:11)
[2023-05-20] MEDS: AMIODARONE HCL 200 MG TAB PO SCH ×2 (09:11→20:52)
[2023-05-20] MEDS: CALCITRIOL 0.25 MCG CAP NG SCH (11:07)
[2023-05-20] MEDS ORDERED: LIDOCAINE 2%HCL (LOCAL ANESTH.) INJ 20ML MDV ONE (14:39)
[2023-05-20] MEDS: NOREPINEPHRINE BITARTRATE 16 MG in SODIUM CHL 0.9% 234 ML IV SCH (14:45)
[2023-05-20] MEDS ORDERED: IOHEXOL 350 MG/ML 100ML IJ ONE (17:00)
[2023-05-20] MEDS: TICAGRELOR 90 MG TAB GT SCH (20:51)
[2023-05-20] MEDS: ATORVASTATIN 20 MG TAB PO SCH (20:51)
[2023-05-21] VITALS (108 sets, daily range): BP systolic 88–146; BP diastolic 23–137; PULSE 86–103; RESP 15–49; TEMP 98–98.8; O2SAT 99–100
[2023-05-21] MEDS: BUDESONIDE (INHALATION) 0.5 MG/2 ML NEB NEB SCH ×3 (00:23→18:22)
[2023-05-21] MEDS: NOREPINEPHRINE BITARTRATE 16 MG in SODIUM CHL 0.9% 234 ML IV SCH ×2 (02:15→14:30)
[2023-05-21] MEDS: VASOPRESSIN 20 UNITS in SODIUM CHL 0.9% 99 ML IV SCH ×2 (02:15→14:49)
[2023-05-21 03:51] LABS: Basophils # (auto) 0.1 10 ^3/uL (0-0.2); Basophils % (auto) 0.7 % (0.0-2.0); Eosinophils # (auto) 0.2 10 ^3/uL (0-0.8); Hemoglobin 11.5 g/dL (13.5-17.5); Lymphocytes # (auto) 0.5 10 ^3/uL (0.4-5.4); Lymphocytes % (auto) 5.1 % (10.0-50.0); Mean Corpuscular Hemoglobin 32.9 pg (28.0-32.0); Mean Corpuscular Hgb Conc. 32.7 g/dL (32.0-36.0); Mean Corpuscular Volume 100.3 fL (80.0-100.0); Monocytes # (auto) 1.5 10 ^3/uL (0-1.3); Monocytes % (auto) 14.8 % (0.0-12.0); Neutrophils # (auto) 7.9 10 ^3/uL (1.6-8.6); Neutrophils % (auto) 77.4 % (37.0-80.0); Nucleated Red Blood Cells % 0.1 %; Red Blood Cells 3.49 10^6/uL (4.5-5.90); Red Cell Distribution Width 15.2 % (11.8-14.3); White Blood Cell 10.2 10^3/uL (4.4-10.8)
[2023-05-21 04:06] LABS: BUN/Creatinine Ratio 8.7 (10.0-20.0); Calcium 8.8 mg/dL (8.5-10.1)
[2023-05-21] MEDS: fentaNYL Drip 2500mCg/250mlNS 250 ML IV SCH (05:00)
[2023-05-21] MEDS: ACCU-CHEK COMFORT CURVE STRIP VI SCH ×4 (05:33→23:12)
[2023-05-21] MEDS: DexmedeTOMIDine 200 MCG in D5W 5% 48 ML IV SCH ×2 (05:37→17:00)
[2023-05-21] MEDS: InsuLIN REG 1unit/0.01ml Soln (100units/ml) SC SCH ×4 (05:37→23:17)
[2023-05-21] MEDS: IPRATROPIUM BROM 0.5 MG/2.5ML INH SOL NEB SCH ×3 (06:39→18:22)
[2023-05-21] MEDS: ALBUTEROL SULF 2.5 MG/0.5ML(0.5%) NEB SOLN NEB SCH ×3 (06:40→18:22)
[2023-05-21 08:15] LABS: Base Excess -3.4 mmol/L (-2.0-2.0)
[2023-05-21] MEDS: TICAGRELOR 90 MG TAB GT SCH ×2 (08:22→20:58)
[2023-05-21] MEDS: ALLOPURINOL 100 MG TAB PO SCH (08:22)
[2023-05-21] MEDS: FOLIC ACID 1 MG TAB PO SCH (08:22)
[2023-05-21] MEDS: AMIODARONE HCL 200 MG TAB PO SCH ×2 (08:22→20:59)
[2023-05-21] MEDS: cefTRIAXone 1GM/50ML D5W 50 ML IV SCH (08:24)
[2023-05-21] MEDS: PANTOPRAZOLE 40 MG/10 ML VIAL INJ IV SCH (08:24)
[2023-05-21] MEDS: CALCITRIOL 0.25 MCG CAP NG SCH (09:47)
[2023-05-21 12:46] LABS: Hepatitis A Ab IgM Negative; Hepatitis B Core IgM Negative; Hepatitis B Surface Antigen Negative (Negative); Hepatitis C Antibody Negative (Negative)
[2023-05-21] MEDS: ATORVASTATIN 20 MG TAB PO SCH (20:58)
[2023-05-22] VITALS (109 sets, daily range): BP systolic 80–158; BP diastolic 31–85; PULSE 20–139; RESP 12–31; TEMP 98.4–98.8; O2SAT 96–100
[2023-05-22] MEDS: VASOPRESSIN 20 UNITS in SODIUM CHL 0.9% 99 ML IV SCH ×2 (01:56→07:18)
[2023-05-22] MEDS: DexmedeTOMIDine 200 MCG in D5W 5% 48 ML IV SCH ×2 (02:44→07:18)
[2023-05-22] MEDS: fentaNYL Drip 2500mCg/250mlNS 250 ML IV SCH (04:33)
[2023-05-22 04:35] LABS: BUN/Creatinine Ratio 9.8 (10.0-20.0); Calcium 8.9 mg/dL (8.5-10.1); Potassium 4.1 mmol/L (3.5-5.1)
[2023-05-22] MEDS: InsuLIN REG 1unit/0.01ml Soln (100units/ml) SC SCH ×3 (05:25→17:17)
[2023-05-22] MEDS: ACCU-CHEK COMFORT CURVE STRIP VI SCH ×3 (05:26→17:17)
[2023-05-22] MEDS: ALBUTEROL SULF 2.5 MG/0.5ML(0.5%) NEB SOLN NEB SCH ×3 (06:16→18:52)
[2023-05-22] MEDS: BUDESONIDE (INHALATION) 0.5 MG/2 ML NEB NEB SCH ×2 (06:16→18:52)
[2023-05-22] MEDS: IPRATROPIUM BROM 0.5 MG/2.5ML INH SOL NEB SCH ×3 (06:16→18:52)
[2023-05-22] MEDS ORDERED: SODIUM CHL 0.9% 1000 ML BAG XX ONE (07:00)
[2023-05-22] MEDS: cefTRIAXone 1GM/50ML D5W 50 ML IV SCH (07:32)
[2023-05-22] MEDS: TICAGRELOR 90 MG TAB GT SCH ×2 (07:32→21:47)
[2023-05-22] MEDS: PANTOPRAZOLE 40 MG/10 ML VIAL INJ IV SCH (07:32)
[2023-05-22] MEDS: AMIODARONE HCL 200 MG TAB PO SCH (07:32)
[2023-05-22] MEDS: CALCITRIOL 0.25 MCG CAP NG SCH (07:33)
[2023-05-22] MEDS: FOLIC ACID 1 MG TAB PO SCH (07:33)
[2023-05-22] MEDS: ALLOPURINOL 100 MG TAB PO SCH (07:33)
[2023-05-22 08:53] LABS: Base Excess -2.6 mmol/L (-2.0-2.0)
[2023-05-22] MEDS: NOREPINEPHRINE BITARTRATE 16 MG in SODIUM CHL 0.9% 234 ML IV SCH (14:30)
[2023-05-22] MEDS ORDERED: AMIODARONE BOLUS KIT 100 ML IV ONE (16:00)
[2023-05-22] MEDS ORDERED: AMIODARONE 450mg/250ml AE 250 ML IV SCH (16:15)
[2023-05-22] MEDS ORDERED: METOPROLOL TARTRATE 1MG/1ML-5ML VIAL IV ONE (18:30)
[2023-05-22] MEDS: ATORVASTATIN 20 MG TAB PO SCH (21:47)
[2023-05-22] MEDS: AMIODARONE 450mg/250ml AE 250 ML IV SCH (22:15)
[2023-05-23] VITALS (108 sets, daily range): BP systolic 81–160; BP diastolic 35–71; PULSE 85–123; RESP 14–29; TEMP 98.5–99.7; O2SAT 99–100
[2023-05-23] MEDS: VASOPRESSIN 20 UNITS in SODIUM CHL 0.9% 99 ML IV SCH ×3 (00:10→22:24)
[2023-05-23] MEDS: ACCU-CHEK COMFORT CURVE STRIP VI SCH ×4 (00:11→17:42)
[2023-05-23] MEDS: InsuLIN REG 1unit/0.01ml Soln (100units/ml) SC SCH ×4 (00:14→17:42)
[2023-05-23] MEDS: DexmedeTOMIDine 200 MCG in D5W 5% 48 ML IV SCH ×3 (01:06→22:30)
[2023-05-23] MEDS: AMIODARONE 450mg/250ml AE 250 ML IV SCH ×2 (02:36→14:59)
[2023-05-23 04:10] LABS: Basophils # (auto) 0.1 10 ^3/uL (0-0.2); Basophils % (auto) 0.6 % (0.0-2.0); Eosinophils # (auto) 0.2 10 ^3/uL (0-0.8); Eosinophils % (auto) 2.4 % (0.0-7.0); Hematocrit 35.4 % (41.0-53.0); Hemoglobin 11.5 g/dL (13.5-17.5); Lymphocytes # (auto) 0.6 10 ^3/uL (0.4-5.4); Lymphocytes % (auto) 6.8 % (10.0-50.0); Mean Corpuscular Hemoglobin 32.6 pg (28.0-32.0); Mean Corpuscular Hgb Conc. 32.5 g/dL (32.0-36.0); Mean Corpuscular Volume 100.5 fL (80.0-100.0); Monocytes # (auto) 1.2 10 ^3/uL (0-1.3); Monocytes % (auto) 13.6 % (0.0-12.0); Neutrophils % (auto) 76.6 % (37.0-80.0); Red Blood Cells 3.52 10^6/uL (4.5-5.90); Red Cell Distribution Width 15.7 % (11.8-14.3); White Blood Cell 9.2 10^3/uL (4.4-10.8)
[2023-05-23] MEDS: fentaNYL Drip 2500mCg/250mlNS 250 ML IV SCH (04:23)
[2023-05-23 04:32] LABS: Potassium 4.1 mmol/L (3.5-5.1)
[2023-05-23 04:36] LABS: BUN/Creatinine Ratio 7.6 (10.0-20.0); Calcium 9.1 mg/dL (8.5-10.1)
[2023-05-23] MEDS: IPRATROPIUM BROM 0.5 MG/2.5ML INH SOL NEB SCH ×3 (06:28→18:22)
[2023-05-23] MEDS: BUDESONIDE (INHALATION) 0.5 MG/2 ML NEB NEB SCH ×2 (06:28→18:22)
[2023-05-23] MEDS: ALBUTEROL SULF 2.5 MG/0.5ML(0.5%) NEB SOLN NEB SCH ×3 (06:28→18:22)
[2023-05-23 07:17] LABS: Base Excess -2.9 mmol/L (-2.0-2.0)
[2023-05-23] MEDS: TICAGRELOR 90 MG TAB GT SCH ×2 (09:43→22:32)
[2023-05-23] MEDS: ALLOPURINOL 100 MG TAB PO SCH (09:43)
[2023-05-23] MEDS: cefTRIAXone 1GM/50ML D5W 50 ML IV SCH (09:43)
[2023-05-23] MEDS: FOLIC ACID 1 MG TAB PO SCH (09:44)
[2023-05-23] MEDS: PANTOPRAZOLE 40 MG/10 ML VIAL INJ IV SCH (09:44)
[2023-05-23] MEDS: CALCITRIOL 0.25 MCG CAP NG SCH (09:47)
[2023-05-23] MEDS: NOREPINEPHRINE BITARTRATE 16 MG in SODIUM CHL 0.9% 234 ML IV SCH ×2 (13:54→17:00)
[2023-05-23] MEDS: ATORVASTATIN 20 MG TAB PO SCH (22:32)
[2023-05-24] VITALS (83 sets, daily range): BP systolic 82–201; BP diastolic 41–103; PULSE 83–98; RESP 12–27; TEMP 98.8–99.2; O2SAT 94–100
[2023-05-24] MEDS: ACCU-CHEK COMFORT CURVE STRIP VI SCH ×4 (00:05→17:43)
[2023-05-24] MEDS: InsuLIN REG 1unit/0.01ml Soln (100units/ml) SC SCH ×4 (00:07→17:44)
[2023-05-24] MEDS: fentaNYL Drip 2500mCg/250mlNS 250 ML IV SCH (01:35)
[2023-05-24 03:36] LABS: Basophils # (auto) 0.1 10 ^3/uL (0-0.2); Basophils % (auto) 0.8 % (0.0-2.0); Eosinophils # (auto) 0.3 10 ^3/uL (0-0.8); Hematocrit 32.3 % (41.0-53.0); Hemoglobin 10.6 g/dL (13.5-17.5); Lymphocytes # (auto) 0.7 10 ^3/uL (0.4-5.4); Lymphocytes % (auto) 7.6 % (10.0-50.0); Mean Corpuscular Hemoglobin 32.4 pg (28.0-32.0); Mean Corpuscular Hgb Conc. 32.6 g/dL (32.0-36.0); Mean Corpuscular Volume 99.3 fL (80.0-100.0); Monocytes % (auto) 11.1 % (0.0-12.0); Neutrophils # (auto) 6.7 10 ^3/uL (1.6-8.6); Neutrophils % (auto) 77.5 % (37.0-80.0); Nucleated Red Blood Cells % 0.1 %; Red Blood Cells 3.25 10^6/uL (4.5-5.90); Red Cell Distribution Width 15.3 % (11.8-14.3); White Blood Cell 8.6 10^3/uL (4.4-10.8)
[2023-05-24 04:04] LABS: BUN/Creatinine Ratio 8.1 (10.0-20.0); Calcium 8.9 mg/dL (8.5-10.1)
[2023-05-24] MEDS: ALBUTEROL SULF 2.5 MG/0.5ML(0.5%) NEB SOLN NEB SCH ×2 (05:51→11:30)
[2023-05-24] MEDS: BUDESONIDE (INHALATION) 0.5 MG/2 ML NEB NEB SCH (05:51)
[2023-05-24] MEDS: IPRATROPIUM BROM 0.5 MG/2.5ML INH SOL NEB SCH ×2 (05:51→11:30)
[2023-05-24] MEDS ORDERED: SODIUM CHL 0.9% 1000 ML BAG XX ONE (07:00)
[2023-05-24] MEDS ORDERED: LACTULOSE 20Gm/30ML SOLN PO ONE (08:30)
[2023-05-24] MEDS: cefTRIAXone 1GM/50ML D5W 50 ML IV SCH (08:52)
[2023-05-24] MEDS: AMIODARONE 450mg/250ml AE 250 ML IV SCH (08:53)
[2023-05-24] MEDS: TICAGRELOR 90 MG TAB GT SCH (09:52)
[2023-05-24] MEDS: FOLIC ACID 1 MG TAB PO SCH (09:53)
[2023-05-24] MEDS: PANTOPRAZOLE 40 MG/10 ML VIAL INJ IV SCH (09:54)
[2023-05-24] MEDS: CALCITRIOL 0.25 MCG CAP NG SCH (09:54)
[2023-05-24] MEDS: ALLOPURINOL 100 MG TAB PO SCH (09:54)
[2023-05-24] MEDS ORDERED: ALBUMIN 25% 100 ML IV PRN (14:15)
== END 2023-05-24 20:45 | disposition short-term general hospital (02) | DRG 870 ==
LOC: ER 08:09 → EDBD 08:09 → TELE 13:34 → TELE-WESTW 21:20 → ICU WEST 05-09 03:15
PROVIDERS: ADMIT Internal Medicine; ATTEND Internal Medicine
PROC: 5A1955Z Respiratory Ventilation, Greater than 96 Consecutive Hours (ICD-10-PCS; 2023-05-09)
PROC: 0BH17EZ Insertion of Endotracheal Airway into Trachea, Via Natural or Artificial Opening (ICD-10-PCS; 2023-05-09)
PROC: 5A1D70Z Performance of Urinary Filtration, Intermittent, Less than 6 Hours Per Day (ICD-10-PCS; 2023-05-09)
PROC: 05H633Z Insertion of Infusion Device into Left Subclavian Vein, Percutaneous Approach (ICD-10-PCS; principal; 2023-05-10)
PROC: 02HV33Z Insertion of Infusion Device into Superior Vena Cava, Percutaneous Approach (ICD-10-PCS; 2023-05-10)
PROC: B548ZZA Ultrasonography of Superior Vena Cava, Guidance (ICD-10-PCS; 2023-05-10)
PROC: B547ZZA Ultrasonography of Left Subclavian Vein, Guidance (ICD-10-PCS; 2023-05-10)
PROC: 5A1D70Z Performance of Urinary Filtration, Intermittent, Less than 6 Hours Per Day (ICD-10-PCS; 2023-05-11)
PROC: 06HM33Z Insertion of Infusion Device into Right Femoral Vein, Percutaneous Approach (ICD-10-PCS; 2023-05-12)
PROC: B54BZZA Ultrasonography of Right Lower Extremity Veins, Guidance (ICD-10-PCS; 2023-05-12)
PROC: 5A1D70Z Performance of Urinary Filtration, Intermittent, Less than 6 Hours Per Day (ICD-10-PCS; 2023-05-12)
PROC: 5A1D70Z Performance of Urinary Filtration, Intermittent, Less than 6 Hours Per Day (ICD-10-PCS; 2023-05-14)
PROC: 5A1D70Z Performance of Urinary Filtration, Intermittent, Less than 6 Hours Per Day (ICD-10-PCS; 2023-05-17)
PROC: 5A1D70Z Performance of Urinary Filtration, Intermittent, Less than 6 Hours Per Day (ICD-10-PCS; 2023-05-19)
PROC: B51WYZZ Fluoroscopy of Dialysis Shunt/Fistula using Other Contrast (ICD-10-PCS; 2023-05-20)
PROC: 5A1D70Z Performance of Urinary Filtration, Intermittent, Less than 6 Hours Per Day (ICD-10-PCS; 2023-05-21)
PROC: 5A1D70Z Performance of Urinary Filtration, Intermittent, Less than 6 Hours Per Day (ICD-10-PCS; 2023-05-23)
DX: A40.9 Streptococcal sepsis, unspecified (principal); G92.8 Other toxic encephalopathy; R65.21 Severe sepsis with septic shock; N18.6 End stage renal disease; J18.9 Pneumonia, unspecified organism; J96.01 Acute respiratory failure with hypoxia; T82.818A Embolism due to vascular prosthetic devices, implants and grafts, initial encounter; I13.2 Hypertensive heart and chronic kidney disease with heart failure and with stage 5 chronic kidney disease, or end stage renal disease; I50.30 Unspecified diastolic (congestive) heart failure; N25.81 Secondary hyperparathyroidism of renal origin; N39.0 Urinary tract infection, site not specified; G93.1 Anoxic brain damage, not elsewhere classified; I87.1 Compression of vein; Z94.0 Kidney transplant status; I25.10 Atherosclerotic heart disease of native coronary artery without angina pectoris; E66.9 Obesity, unspecified; E87.5 Hyperkalemia; D69.6 Thrombocytopenia, unspecified; E78.5 Hyperlipidemia, unspecified; I48.91 Unspecified atrial fibrillation; Z20.822 Contact with and (suspected) exposure to COVID-19; Y83.2 Surgical operation with anastomosis, bypass or graft as the cause of abnormal reaction of the patient, or of later complication, without mention of misadventure at the time of the procedure; Y92.89 Other specified places as the place of occurrence of the external cause; Z83.3 Family history of diabetes mellitus; Z95.5 Presence of coronary angioplasty implant and graft; Z82.49 Family history of ischemic heart disease and other diseases of the circulatory system; Z99.2 Dependence on renal dialysis; Z95.2 Presence of prosthetic heart valve; Z88.6 Allergy status to analgesic agent; Z79.899 Other long term (current) drug therapy; Z68.32 Body mass index [BMI] 32.0-32.9, adult
CPT/HCPCS: 36415; 36600; 36906; 70450; 71045; 76000; 76604; 76937; 80048; 80053; 80074; 80202; 80320; 82306; 82805; 82962; 83036; 83605; 83735; 83970; 84100; 84484; 85007; 85025; 85027; 85610; 85730; 86850; 86900; 86901; 87040; 87070; 87077; 87081; 87186; 87205; 87340; 87426; 90935; 93005; 93306; 94002; 94003; 94640; 99291; C1769; C1894; C9113; G0378; J0330; J0696; J1815; J1956; J2405; J2704; J7060; P9047